=== PATIENT | female | born 1940 | race Caucasian/White ===

== ENCOUNTER 2017-02-23 11:41 | Inpatient (IN) | payer MEDICAID, OTHER ==
[2017-02-23] VITALS (32 sets, daily range): BP systolic 78–153; BP diastolic 44–80; PULSE 54–72; RESP 16–22; TEMP 96.6; Ht 162.6 cm; Wt 69.0 kg
[~2017-02-23] VITALS: Ht 162.6 cm; Wt 69.0 kg
[2017-02-23] MEDS ORDERED: SOD CHLORIDE 0.9% 1,000 ML IV STA ×2 (11:44)
[2017-02-23] MEDS ORDERED: PROPOFOL 100 ML IV STA (11:44)
[2017-02-23] MEDS ORDERED: SODIUM CHLORIDE 0.9% 500 ML BAG IV* STA (11:44)
[2017-02-23] MEDS ORDERED: HEPARIN 1000 UNITS/ML 10 ML INJ IV STA (11:50)
[2017-02-23] MEDS ORDERED: ASPIRIN 300 MG SUPP PR ONE (12:00)
[2017-02-23] MEDS ORDERED: HYDROmorphONE 1 MG/ML SYG IV ONE (12:00)
[2017-02-23] MEDS ORDERED: IODIXANOL LOCM 100 ML BTL ONE ×2 (12:12→21:01)
[2017-02-23] MEDS ORDERED: LIDOCAINE 1% (MDV) 20 ML INJ ONE (12:12)
[2017-02-23 12:13] LABS: ABNORMAL IP MESSAGE 1; BASOPHIL # 0.2 10^3/ul (0.0-0.1); BASOPHILS % 1.2 % (0.0-2.0); EOSINOPHILS # 0.6 10^3/ul (0.0-0.5); EOSINOPHILS % 3.9 % (0.0-7.0); HEMATOCRIT 41.1 % (37.0-47.0); HEMOGLOBIN 13.2 g/dl (12.0-16.0); LYMPHOCYTES # 6.2 10^3/ul (0.8-2.9); LYMPHOCYTES % 39.3 % (15.0-51.0); MEAN CORPUSCULAR HEMOGLOBIN 32.8 pg (29.0-33.0); MEAN CORPUSCULAR HGB CONC 32.1 g/dl (32.0-37.0); MEAN CORPUSCULAR VOLUME 102.2 fl (82.0-101.0); MEAN PLATELET VOLUME 10.6 fl (7.4-10.4); MONOCYTE # 0.7 10^3/ul (0.3-0.9); MONOCYTES % 4.3 % (0.0-11.0); NEUTROPHIL # 7.8 10^3/ul (1.6-7.5); NEUTROPHILS % 49.2 % (39.0-77.0); PLATELET COUNT 177 10^3/UL (140-415); RED BLOOD COUNT 4.02 10^6/ul (4.20-5.40); RED CELL DISTRIBUTION WIDTH 14.2 % (11.5-14.5); WHITE BLOOD COUNT 15.9 10^3/ul (4.8-10.8)
[2017-02-23] MEDS ORDERED: NITROGLYCERIN (IC) 100 MCG/ML INJ ONE (12:13)
[2017-02-23] MEDS ORDERED: FENTAnyl 50 MCG/ML VIAL ONE (12:13)
[2017-02-23] MEDS ORDERED: MIDAZOLAM 1 MG/ML 2 ML INJ ONE (12:13)
--- NOTE | 2017-02-23 12:17 | RADRPT ---
PROCEDURE: XR Chest. CLINICAL INDICATION: Chest pain. Sepsis. STEMI. TECHNIQUE: Single frontal view. COMPARISON: None. FINDINGS: The endotracheal tube tip is at the C7 level, 9.5 cm above the young. This should be advanced appr oximately 7 cm. There is extensive bilateral interstitial pulmonary disease. The heart is enlarged. There is calcification in the aorta consistent with atherosclerosis. The left internal jugular vein tunneled dialysis catheter tip is in the lower superior vena cava. There is no pleural effusion. There is no pneumothorax. IMPRESSION: 1. The endotracheal tube should be advanced approximately 7 cm. 2. Extensive bilateral interstitial pulmonary disease. 3. Cardiomegaly. 4. Atherosclerosis. 5. Left IJ catheter tip in the lower superior vena cava. Call report: A call report of the findings was made to Dr. Evans on 02/23/2017 at 1210 hours. Appa rently at that time, the endotracheal tube had been already advanced 5 cm. RPTAT: QQ .Dipesh Paulino MD, MD Date Time Electronically viewed and signed by .Dipesh Paulino MD, on 02/23/2017 12:17 .R/
[2017-02-23 12:20] LABS: INR 1.02; POSITIVE DIFF @See below; PROTIME 13.4 Sec (12.2-14.2)
[2017-02-23 12:29] LABS: AADO2 Arterial 263.6 mmHg (7.0-24.0); Arterial Base Excess -4.9 mmol/L (-3.0-3); Arterial COHb 0.5 % (0.0-3.0); Arterial Fraction of Oxyhgb 98.9 % (93.0-99.0); Arterial HCO3 21.6 mmol/L (22.0-26.0); Arterial MetHb 0.3 % (0.0-1.5); Arterial Total Hemglobin 13.2 g/dl (12.0-18.0); MODE VENT - AC
[2017-02-23 12:48] LABS: PARTIAL THROMBOPLASTIN TIME 68.6 Sec (25.0-35.0)
--- NOTE | 2017-02-23 12:55 | OPR ---
Date/Time of Note Date/Time of Note DATE: 02/23/17 TIME: 12:46 Operative Report Procedure Date: Feb 23, 2017 Operative\Procedure Findings Procedure performed: 1. Emergent Left heart catheterization, selective right and left coronary angiogram 2. right femoral angiogram 3. moderate sedation for more than 45 minutes. 4. right femoral central venous line placement Chef Instructor: Malcolm Evans MD Indication:: 76 year old female who presented with cardiac arrest. initial ECG showed ST elevation inferiorly c/w inferior STEMI. after d/w ER physician it was felt that pt would benefit from emergent C tera angio possible PCI. pt also with severe hypotension and required to have a central venous access in place for medications/ pressors. Findin. Left main coronary artery: Is normal. 2. Left anterior descending artery: Its a moderate size vessel and goes around the apex. It has 40% stenosis proximally, and 40% stenosis of the mid LAD. 3. Left circumflex artery: Is nondominant. It has 40 % stenosis proximally. 4. Right coronary artery: Is a dominant vessel. It has 30% stenosis at mid level with REED III flow. 5. LV pressure: 53/ 4; Aortic pressure by pull back is 55/33 6. opening BP 53/21 7. final BP 159/53 ( on levophed drip). emergency consent done after d/w with DR Vizcaino and after risks benefits and alternatives discussed with the patient's son in detail. risks including but not limited to risk of infection vascular complications, bleeding complications , NM stroke arrhythmia renal failure at even were discussed with the patient in detail. Patient was brought into the cardiac laborer road and placed in supine position. Right and left groin area was prepped and draped in regular sterile fashion and then he was in anesthetized using 1% lidocaine. Right femoral artery was cannulated and using modified seldinger technique a 6 Slovak sheath was placed in the right femoral artery. JL4 catheter was advanced and engaged into the left main coronary artery and angiographic view was obtained. The JR4 catheter was advanced and engaged right coronary artery angiographic view was obtained. Pigtail was advanced to engage the left ventricle hemodynamics as recorded by pullback aortic pressure was measured. Right femoral vein was cannulated and using modified seldinger technique a central lumen sheath was placed in the right femoral vein. Patient tolerated procedure well with no complication. Right femoral angiogram was performed. Patient is to be transferred to recovery room in stable condition contrast used: 37 cc Conclusions: non obstructive CAD Recommendation: aggressive medical therapy ICU care. MALCOLM EVANS MD Feb 23, 2017 12:55
[2017-02-23] MEDS ORDERED: SOD CHLORIDE 0.9% 1,000 ML IV SCH (12:56)
[2017-02-23 13:12] LABS: ALBUMIN 4.5 g/dl (3.3-4.9); ALBUMIN/GLOBULIN RATIO 1.04; BILIRUBIN,INDIRECT 0.2 mg/dl (0-1.1); BILIRUBIN,TOTAL 0.2 mg/dl (0.2-1.3); MAGNESIUM 1.9 mg/dl (1.7-2.5); PHOSPHORUS 4.4 mg/dl (2.5-4.9); TOTAL PROTEIN 8.8 g/dl (6.1-8.1)
[2017-02-23 13:16] LABS: CALCIUM 8.9 mg/dl (8.4-10.2); CREATININE 2.35 mg/dl (0.44-1.00); POTASSIUM 4.6 mmol/L (3.5-5.1)
--- NOTE | 2017-02-23 13:23 | ERA ---
ER Documentation Chief Complaint Date/Time DATE: 02/23/17 TIME: 13:19 Chief Complaint CARDIAC ARREST, ROSC IN FIELD LINEN MANAGER. HPI Patient is a 76-year-old female with coronary disease, diabetes, and renal failure on dialysis who presents with a cardiac arrest. The patient was brought in by ambulance. The patient was a PEA arrest. The son witnessed her pass out while walking up the steps and she never regained pulses. CPR was started by paramedics. The patient was intubated in the field and given epinephrine 1 mg IV. The patient received return of spontaneous circulation quickly after epi. The patient did have full dialysis today. Please note the history and physical exam is limited secondary to the patient being intubated. ROS All systems reviewed and are negative except as per history of present illness. PMhx/Soc History of Surgery: Yes (GALL BLADDER, HERNIA) Anesthesia Reaction: No Hx Neurological Disorder: No Hx Respiratory Disorders: Yes ("PROBLEMS W/ LUNGS" PER PT'S SON) Hx Cardiac Disorders: Yes ("PROBLEMS W/ HEART" PER PT'S SON) Hx Psychiatric Problems: No Hx Miscellaneous Medical Probl: Yes ("PROBLEMS W/ KIDNEYS" PER PT'S SON) Hx Alcohol Use: No Hx Substance Use: No Hx Tobacco Use: No Smoking Status: Never smoker FmHx Unable to obtain Physical Exam Vitals Vital Signs Date Time Temp Pulse Resp B/P Pulse Ox O2 Delivery O2 Flow Rate FiO2 02/23/17 11:57 96.6 83 20 207/79 100 High Flow 15.0 02/23/17 11:41 99.1 86 0 207/76 100 Physical Exam Const: Critically ill Head: Atraumatic Eyes: Normal Conjunctiva ENT: Normal External Ears, Nose and Mouth. Neck: Full range of motion..~ No meningismus. Resp: Clear to auscultation bilaterally Cardio: Regular rate and rhythm, no murmurs Abd: Soft, non tender, non distended. Normal bowel sounds Skin: No petechiae or rashes Back: No midline or flank tenderness Ext: No cyanosis, or edema Neur: Eyes closed but moving all 4 extremities at this time, no purposeful movement Result Diagram: 02/23/17 1144 02/23/17 1144 Results 24 hrs Laboratory Tests Test 02/23/17 11:44 White Blood Count 15.910^3/ul Red Blood Count 4.0210^6/ul Hemoglobin 13.2g/dl Hematocrit 41.1% Mean Corpuscular Volume 102.2fl Mean Corpuscular Hemoglobin 32.8pg Mean Corpuscular Hemoglobin Concent 32.1g/dl Red Cell Distribution Width 14.2% Platelet Count 40105^3/UL Mean Platelet Volume 10.6fl Neutrophils % 49.2% Lymphocytes % 39.3% Monocytes % 4.3% Eosinophils % 3.9% Basophils % 1.2% Nucleated Red Blood Cells % 0.0/100WBC Neutrophils # 7.810^3/ul Lymphocytes # 6.210^3/ul Monocytes # 0.710^3/ul Eosinophils # 0.610^3/ul Basophils # 0.210^3/ul Nucleated Red Blood Cells # 0.010^3/ul Prothrombin Time 13.4Sec Prothrombin Time Ratio 1.0 INR International Normalized Ratio 1.02 Activated Partial Thromboplast Time 68.6Sec Blood Gas Specimen Source Blood arterial Arterial Blood Date Drawn 02/23/2017 12:21:41 PM Arterial Blood pH (Temp corrected) 7.295 Arterial Blood pCO2 (Temp correct) 45.5mmhg Arterial Blood pO2 (Temp corrected) 403.9mmHG Arterial Blood HCO3 21.6mmol/L Arterial Blood Base Excess -4.9mmol/L Arterial Blood Oxygen Saturation 99.7mmHG Giovanny Test N/A Arterial Blood Gas Puncture Site Femoral Arterial Blood Carboxyhemoglobin 0.5% Arterial Blood Methemoglobin 0.3% Blood Gas A-a O2 Differential 263.6mmHg Oxyhemoglobin Percent 98.9% Total Hemoglobin 13.2g/dl Blood Gas Temperature 37.0C Blood Gas Respiration Rate 16.0 Blood Gas Actual Respiration Rate 18 Blood Gas Modality VENT - AC FiO2 100.0% Blood Gas Tidal Volume 500.0mL Blood Gas Low PEEP Setting 5.0cmH2O Blood Gas Critical Value Read Back DR. EVANS Blood Gas Notified Whom Caden Blood Gas Notified Time 02/23/2017 12:28:54 PM Sodium Level 139mmol/L Potassium Level 4.6mmol/L Chloride Level 96mmol/L Carbon Dioxide Level 18mmol/L Anion Gap 30 Blood Urea Nitrogen 10mg/dl Creatinine 2.35mg/dl Glucose Level 213mg/dl Lactic Acid Level 6.6mmol/L Calcium Level 8.9mg/dl Phosphorus Level 4.4mg/dl Magnesium Level 1.9mg/dl Total Bilirubin 0.2mg/dl Direct Bilirubin 0.00mg/dl Indirect Bilirubin 0.2mg/dl Aspartate Amino Transf (AST/SGOT) 176IU/L Alanine Aminotransferase (ALT/SGPT) 78IU/L Alkaline Phosphatase 203IU/L Troponin I Pending Total Protein 8.8g/dl Albumin 4.5g/dl Globulin 4.30g/dl Albumin/Globulin Ratio 1.04 Current Medications Medications (Trade) Dose Ordered Sig/Rory Route PRN Reason Start Time Stop Time Status Last Admin Dose Admin Aspirin 300 mg 300 mg ONCE ONCE IA 02/23/17 12:00 02/23/17 12:01 DC 02/23/17 11:59 Sodium Chloride 1,000 ml @ 1,000 mls/hr Q1H STAT IV 02/23/17 11:44 02/23/17 12:43 DC Sodium Chloride (NS) 1,000 ml @ 1,000 mls/hr Q1H STAT IV 02/23/17 11:44 02/23/17 12:43 DC Hydromorphone HCl 1 mg 1 mg ONCE ONCE IV 02/23/17 12:00 02/23/17 12:01 DC Propofol (Diprivan) 100 ml @ 0 mls/hr ONCE STAT IV 02/23/17 11:44 02/23/17 11:50 DC Sodium Chloride (NS) 500 ml ONCE STAT IV* 02/23/17 11:44 02/23/17 11:50 DC Heparin Sodium (Porcine) (Heparin (1000 Units/ml)) 5,000 unit ONCE STAT IV 02/23/17 11:50 02/23/17 11:52 DC 02/23/17 12:02 Procedures/MDM EKG read by me: Rate/Rhythm: Regular rate and rhythm at a normal rate Intervals: Normal Impression: Mild ST elevation in lead III with flipped T waves in the lateral leads Review of the EKG done by paramedics show a sinus tachycardia with ST elevations in leads III and aVF with reciprocal depressions in 1 and aVL. Chest X-ray 1V Interpreted by me: Soft Tissue: No acute abnormalities Bones: No acute abnormalities Mediastinum/Cardiac Silhouette/Lungs: Pacemaker in place, ET tube is 6 cm above the clavicles Patient is a 76-year-old female with cardiac risk factors who presents with a cardiac arrest. The patient arrived at 11:40 AM. A code STEMI was called immediately after reviewing the readers' advisory service librarian EKGs. I spoke with Dr. Evans the pest locator building inspection engineer at 11:45 AM. The patient was still awaiting the Telegraph Lineman team at 11:54 AM. The patient was eventually transferred to the cardiac Telegraph Lineman at 12:02 PM. I spoke with Dr. Rangel from the panel team for admission as the patient has never been here before and the primary doctor is unknown. The patient will be admitted to the intensive care unit. Her prognosis is poor. I believe a discussion with the son regarding goals of care would be appropriate. Lactic acid was greater than 4 but at this point I doubt true sepsis. I believe the elevated lactic acid is likely due to the cardiac arrest and poor perfusion. Critical Care: Time: 35 minutes excluding all billable procedures. Treatments/Evaluations: Close monitoring and treatment of unstable vital signs, cardiorespiratory, and neurologic status, while maintaining tight balance of fluid, respiratory, and cardiac interventions. Departure Diagnosis: Primary Impression: Cardiac arrest Additional Impression: STEMI (ST elevation myocardial infarction) Qualified Code: I21.3 - ST elevation myocardial infarction (STEMI), unspecified artery Condition: Critical KELLIE JAMIL MD Feb 23, 2017 13:23
[2017-02-23 13:24] LABS: TROPONIN-I 0.041 ng/ml (0.00-0.12)
--- NOTE | 2017-02-23 13:45 | CONS ---
Date/Time of Note Date/Time of Note DATE: 02/23/17 TIME: 13:44 Assessment/Plan Assessment/Plan Chief Complaint/Hosp Course 1. Cardiopulmonary arrest 2. Shock probably septic [address] elevation on EKG patient is well with no significant flow- limiting obstruction on the coronary angiogram 4. Renal failure on dialysis 5. History of hypertension now hypotensive in shock 6. Diabetes 7. History of dyslipidemia 8. Hypoxemic respiratory failure currently intubated on the vent 9. Diarrhea Recommendations: I will hold off on any anticoagulant or aspirin for now. We will try to wean off the Levophed. IV fluids will be given for now. Renal consultation for hemodialysis. Diabetic management as per internal medicine. Antibiotic management as per internal medicine. We will give a dose of Zosyn now. Continue the vent support for now. We will remove the A-line once patient's blood pressure has remained stable and off of pressors. Admitted to ICU. Will order echocardiogram and repeat chest x-ray It was decided not to proceed with a hypothermia protocol because patient was moving and appeared to follow basic commands. More than 50 minutes of critical care time was reminded to increase patient excluding any procedures Thank you for his referral. I will continue to follow along with you. MALCOLM SANCHEZ MD [facility] Problems: Consultation Date/Type/Reason Admit Date/Time Date of Consultation: Feb 23, 2017 Type of Consultation: INTERVENTIONAL CARDIOLOGY Reason for Consultation CARDIOPULMONARY ARREST. STEMI Referring Provider: KELLIE JAMIL MD Hx of Present Illness Thank you for this referral. This is an unfortunate 76-year-old female with history of end-stage renal disease on hemodialysis over the past 10 years, hypertension diabetes dyslipidemia who was admitted through emergency room with cardiopulmonary arrest. History was obtained from discussion with multiple physicians and a stabbing: Dr. Jamil and Dr Andrade. Also discussed with multiple family want the bedside. Discussed with the sons. According to the family patient has been fatigued and tired for a long time. She has had exertional dyspnea and shortness of breath. No chest pain. Patient had hemodialysis today and earlier. She was walking upstairs when she felt weak and suddenly passed out and fell. Paramedics were called. Patient was found to be in PEA initially. Patient has been intubated. Initial EKG done by benefits director has showed normal sinus rhythm with ST elevation inferiorly and reciprocal changes in the lateral leads consistent with possible inferior ST elevation myocardial infarction. Code STEMI was activated and I was consulted emergently saw the patient. Patient was taken for emergent cardiac catheterization which showed no flow-limiting obstructions. Her LVEDP was very low however. She was noted to be severely hypotensive with blood pressure of 55 /33 initially. I have placed her on Levophed drip and fluid resuscitation was given as well. Blood pressure has improved at the moment. Central venous line was also placed in for IV access and fluid management. On my initial visit to the patient patient was moving around. She actually did open her eyes as well. Because of her bodies were decided the patient should not be on hypothermia protocol. Patient is being transferred to ICU. Patient was also noted to have massive diarrhea in the Air Conditioning Insulation Installer. Family denies any recent diarrhea. Allergies no reported drug allergies I could obtain. Medication was reviewed as per medical reconciliation for personally reviewed. Include Renagel Lipitor lisinopril isosorbide insulin Family history no reported early coronary artery disease per family's report. Social history: Patient does not smoke or drink. Is being followed about all review. Does not know her doctor's names. According to the family all the review of system are negative except for above. Social History Smoking Status: Never smoker Exam/Review of Systems Vital Signs Vitals Vital Signs Date Time Temp Pulse Resp B/P Pulse Ox O2 Delivery O2 Flow Rate FiO2 02/23/17 12:33 72 18 100 100 02/23/17 11:57 96.6 207/79 High Flow 15.0 Exam General obese female started with intubation on the vent. HEENT: NC/AT. pupils are equal. round. NECK: NO JVD. no stridor. CV: RRR. systolic murmur; no gallop or rubs. PULM: no wheezing or rhonchi anteriorly. GI: SOFT, NT, ND, no rebound or guarding Extremity: trace B/L LE edema. no clubbing. neuro: sedated. Psych: gets intermittently agitated. rectal: deferred : normal ECG initial NSR ST elevation inferior lead. Results Result Diagram: 02/23/17 1144 02/23/17 1144 Results 24 hrs Laboratory Tests Test 02/23/17 11:44 White Blood Count 15.9 H Red Blood Count 4.02 L Hemoglobin 13.2 Hematocrit 41.1 Mean Corpuscular Volume 102.2 H Mean Corpuscular Hemoglobin 32.8 Mean Corpuscular Hemoglobin Concent 32.1 Red Cell Distribution Width 14.2 Platelet Count 177 Mean Platelet Volume 10.6 H Neutrophils % 49.2 Lymphocytes % 39.3 Monocytes % 4.3 Eosinophils % 3.9 Basophils % 1.2 Nucleated Red Blood Cells % 0.0 Neutrophils # 7.8 H Lymphocytes # 6.2 H Monocytes # 0.7 Eosinophils # 0.6 H Basophils # 0.2 H Nucleated Red Blood Cells # 0.0 Prothrombin Time 13.4 Prothrombin Time Ratio 1.0 INR International Normalized Ratio 1.02 Activated Partial Thromboplast Time 68.6 H Blood Gas Specimen Source Blood arterial Arterial Blood Date Drawn 02/23/2017 12:21:41 PM Arterial Blood pH (Temp corrected) 7.295 *L Arterial Blood pCO2 (Temp correct) 45.5 H Arterial Blood pO2 (Temp corrected) 403.9 H Arterial Blood HCO3 21.6 L Arterial Blood Base Excess -4.9 L Arterial Blood Oxygen Saturation 99.7 Giovanny Test N/A Arterial Blood Gas Puncture Site Femoral Arterial Blood Carboxyhemoglobin 0.5 Arterial Blood Methemoglobin 0.3 Blood Gas A-a O2 Differential 263.6 H Oxyhemoglobin Percent 98.9 Total Hemoglobin 13.2 Blood Gas Temperature 37.0 Blood Gas Respiration Rate 16.0 Blood Gas Actual Respiration Rate 18 Blood Gas Modality VENT - AC FiO2 100.0 Blood Gas Tidal Volume 500.0 Blood Gas Low PEEP Setting 5.0 Blood Gas Critical Value Read Back DR. SANCHEZ Blood Gas Notified Whom Caden Blood Gas Notified Time 02/23/2017 12:28:54 PM Sodium Level 139 Potassium Level 4.6 Chloride Level 96 L Carbon Dioxide Level 18 L Anion Gap 30 H Blood Urea Nitrogen 10 Creatinine 2.35 H Glucose Level 213 Lactic Acid Level 6.6 *H Calcium Level 8.9 Phosphorus Level 4.4 Magnesium Level 1.9 Total Bilirubin 0.2 Direct Bilirubin 0.00 Indirect Bilirubin 0.2 Aspartate Amino Transf (AST/SGOT) 176 H Alanine Aminotransferase (ALT/SGPT) 78 H Alkaline Phosphatase 203 H Troponin I 0.041 Total Protein 8.8 H Albumin 4.5 Globulin 4.30 H Albumin/Globulin Ratio 1.04 Medications Medications Current Medications Sodium Chloride (NS) 1,000 ml @ 125 mls/hr Q8H IV ; Start 02/23/17 at 12:56; Stop 02/23/17 at 20:55 MALCOLM SANCHEZ MD Feb 23, 2017 13:45
--- NOTE | 2017-02-23 14:53 | CONS ---
Date/Time of Note Date/Time of Note DATE: 02/23/17 TIME: 14:48 Assessment/Plan Assessment/Plan Additional Assessment/Plan Chest x-ray was reviewed from today which is showing endotracheal tube at an adequate level. There is pulmonary edema and cardiomegaly present. Next Ventilator setting; AC of 16, tidal volume 500, PEEP of 5, 100% FiO2. Assessment and recommendations; 1. Patient admitted with cardiac arrest etiology is unclear. Possibly coronary artery spasm. 2. Chronic renal failure, on hemodialysis. 3. Mild pulmonary edema. 4. History of diabetes and hypertension. Continue current supportive care. Give the patient sedation vacation in 24 hours. Ventilator settings have been adjusted. Start cefepime 1 g every 12 hours. Obtain follow-up chest x-ray tomorrow morning. Patient may not require further antibiotic dosing if the x-ray shows significant improvement. Prognosis is guarded and will depend upon adequate mental status recovery. Since the patient has had neurological recovery she is not a candidate for hypothermia protocol. Consultation Date/Type/Reason Admit Date/Time Date of Consultation: Feb 23, 2017 Type of Consultation: Pulmonary/critical care Reason for Consultation Pulmonary consultation requested for evaluation of respiratory failure. Patient admitted with cardiac arrest. History of presenting illness; patient is a 76-year-old lady who was admitted via ER and she was brought in with cardiac arrest. CPR was done with revival of vital signs. Patient also was somewhat arousable at the time. She was immediately taken to the Bus Washer where she underwent coronary angiography which was essentially unremarkable. The patient has been intubated and transferred to ICU. By the time I saw the patient the patient is orally intubated, sedated with propofol drip and did not appear to be in any distress. History was obtained from medical records. Past medical history; 1. Patient with a history of end-stage renal disease, on hemodialysis. 2. History of hypertension. 3. History of diabetes. 4. Based upon examination there is a history of laparotomy. Medications; reviewed. Allergies; none. Social history; patient never smoked. Family history; patient apparently has a supportive family. Occupation history not available. Review of systems; unable to be obtained General examination; elderly woman, orally intubated, sedated, currently in no distress. Social History Smoking Status: Never smoker Exam/Review of Systems Vital Signs Vitals Vital Signs Date Time Temp Pulse Resp B/P Pulse Ox O2 Delivery O2 Flow Rate FiO2 02/23/17 12:33 72 18 100 100 02/23/17 11:57 96.6 207/79 High Flow 15.0 Exam HEENT exam; supple neck, positive JVD. No lymphadenopathy. Midline trachea. No thyromegaly. Patient has fair dentition. Has bilateral intraocular lens implants. Chest exam; diminished but clear breath sound. S1-S2 audible, no murmurs. Regular rhythm. Abdomen exam; soft, there is a well-healed laparotomy scar present. Bowel sounds are sluggish. No organomegaly felt. Extremity exam; no peripheral edema. Pulses 1+ bilaterally. FORESTRY CONSERVATION WORKER exam; patient is sedated. Results Result Diagram: 02/23/17 1144 02/23/17 1144 Results 24 hrs Laboratory Tests Test 02/23/17 11:44 White Blood Count 15.9 H Red Blood Count 4.02 L Hemoglobin 13.2 Hematocrit 41.1 Mean Corpuscular Volume 102.2 H Mean Corpuscular Hemoglobin 32.8 Mean Corpuscular Hemoglobin Concent 32.1 Red Cell Distribution Width 14.2 Platelet Count 177 Mean Platelet Volume 10.6 H Neutrophils % 49.2 Lymphocytes % 39.3 Monocytes % 4.3 Eosinophils % 3.9 Basophils % 1.2 Nucleated Red Blood Cells % 0.0 Neutrophils # 7.8 H Lymphocytes # 6.2 H Monocytes # 0.7 Eosinophils # 0.6 H Basophils # 0.2 H Nucleated Red Blood Cells # 0.0 Prothrombin Time 13.4 Prothrombin Time Ratio 1.0 INR International Normalized Ratio 1.02 Activated Partial Thromboplast Time 68.6 H Blood Gas Specimen Source Blood arterial Arterial Blood Date Drawn 02/23/2017 12:21:41 PM Arterial Blood pH (Temp corrected) 7.295 *L Arterial Blood pCO2 (Temp correct) 45.5 H Arterial Blood pO2 (Temp corrected) 403.9 H Arterial Blood HCO3 21.6 L Arterial Blood Base Excess -4.9 L Arterial Blood Oxygen Saturation 99.7 Giovanny Test N/A Arterial Blood Gas Puncture Site Femoral Arterial Blood Carboxyhemoglobin 0.5 Arterial Blood Methemoglobin 0.3 Blood Gas A-a O2 Differential 263.6 H Oxyhemoglobin Percent 98.9 Total Hemoglobin 13.2 Blood Gas Temperature 37.0 Blood Gas Respiration Rate 16.0 Blood Gas Actual Respiration Rate 18 Blood Gas Modality VENT - AC FiO2 100.0 Blood Gas Tidal Volume 500.0 Blood Gas Low PEEP Setting 5.0 Blood Gas Critical Value Read Back DR. SANCHEZ Blood Gas Notified Whom Caden Blood Gas Notified Time 02/23/2017 12:28:54 PM Sodium Level 139 Potassium Level 4.6 Chloride Level 96 L Carbon Dioxide Level 18 L Anion Gap 30 H Blood Urea Nitrogen 10 Creatinine 2.35 H Glucose Level 213 Lactic Acid Level 6.6 *H Calcium Level 8.9 Phosphorus Level 4.4 Magnesium Level 1.9 Total Bilirubin 0.2 Direct Bilirubin 0.00 Indirect Bilirubin 0.2 Aspartate Amino Transf (AST/SGOT) 176 H Alanine Aminotransferase (ALT/SGPT) 78 H Alkaline Phosphatase 203 H Troponin I 0.041 Total Protein 8.8 H Albumin 4.5 Globulin 4.30 H Albumin/Globulin Ratio 1.04 Medications Medications Current Medications Sodium Chloride (NS) 1,000 ml @ 125 mls/hr Q8H IV ; Start 02/23/17 at 12:56; Stop 02/23/17 at 20:55 ELSA SCHMITZ Feb 23, 2017 14:53
--- NOTE | 2017-02-23 15:15 | RADRPT ---
Echocardiogram Report Patient Name: ROSMERY HE Gender: Female Date: 1940 Study Date: 23-Feb-2017 Injection Molder: [facility] Location: 110 Ref. Physician: MALCOLM EVANS Quality: Adequate Procedures: Transthoracic echocardiogram with complete 2D, M-Mode, and doppler examination. Indications: STEMI, CPA. 2D/M Mode Doppler Measurement Value Normal Ranges Measurement Value Normal Ranges LVIDd 2D 3.5 3.5 - 5.6 cm AV Peak Nick 1.8 m/sec LVIDs 2D 3.0 2.1 - 4.1 cm AV Peak PG 13.0 mmHg LVPWd 2D 1.3 0.6 - 1.1 cm AI Peak PG 50.0 mmHg IVSd 2D 1.3 0.6 - 1.1 cm AI Peak Nick 3.5 m/sec AoR Diam 2D 2.0 2.0 - 3.7 cm AI PHT 611.0 msec LA Dimen 2D 3.0 2.3 - 4.0 cm LVOT Peak Nick 1.5 m/sec LVOT Peak PG 9.0 mmHg MV E Peak Nick 0.6 m/sec MV A Peak Nick 1.4 m/sec MV E/A 0.5 MV Decel Time 285 msec MV E/A 0.5 TR Peak Nick 3.6 m/sec TR Peak PG 52.0 mmHg RVSP 62.0 mmHg Findings Left Ventricle: Hyperdynamic left ventricular systolic function. Normal left ventricular cavity size. Mild concentric left ventricular hypertrophy. Ejection fraction is visually estimated at 70 %. Tissue Doppler/Mitral Doppler indices are consistent with impaired relaxation (Stage I diastolic dysfunction). Right Ventricle: Normal right ventricular systolic function. Mild enlargement of right ventricle. Left Atrium: The left atrium is normal in size. Right Atrium: The right atrium is normal in size. Mitral Valve: Mild mitral leaflet calcification. Mild mitral annular calcification. Trace mitral regurgitation. Aortic Valve: Aortic sclerosis without stenosis. Trileaflet aortic valve. Moderate to severe aortic valve regurgitation. The regurgitation jet is eccentrically directed. Tricuspid Valve: Normal appearance of the tricuspid valve. Estimated peak PA systolic pressure 62 mmHg. There is mild tricuspid regurgitation. Pulmonic Valve: Pulmonic valve not well visualized. There is mild pulmonic regurgitation. Pericardium: Normal pericardium with no significant pericardial effusion. Aorta: Normal aortic root. IVC: Normal IVC with respiratory collapse, however patient on ventilator. Conclusions 1.Hyperdynamic left ventricular systolic function. Normal left ventricular cavity size. Mild concentric left ventricular hypertrophy. Ejection fraction is visually estimated at 70 %. Tissue Doppler/Mitral Doppler indices are consistent with impaired relaxation (Stage I diastolic dysfunction). 2.Normal right ventricular systolic function. Mild enlargement of right ventricle. 3.Mild mitral leaflet calcification. Mild mitral annular calcification. Trace mitral regurgitation. 4.Aortic sclerosis without stenosis. Trileaflet aortic valve. Moderate to severe aortic valve regurgitation. The regurgitation jet is eccentrically directed. 5.Normal appearance of the tricuspid valve. Estimated peak PA systolic pressure 62 mmHg. There is mild tricuspid regurgitation. 6.Normal IVC with respiratory collapse, however patient on ventilator. Electronically Signed By: Malcolm Evans 23-Feb-2017 15:14:14 -0700 Patient Name: ROSMERY HE Study Date: 23-Feb-2017 [id number]
[2017-02-23] MEDS ORDERED: ONDANSETRON 4 MG INJ IV PRN (15:30)
[2017-02-23] MEDS ORDERED: ALBUTEROL/IPRATROPIUM (NEB) 3 ML AMP NEB PRN (15:30)
--- NOTE | 2017-02-23 15:54 | RADRPT ---
PROCEDURE: XR Chest. CLINICAL INDICATION: s/p intubation TECHNIQUE: Single frontal chest x-ray. COMPARISON: 11:48 a.m. FINDINGS: Endotracheal tube is in place with tip 1 cm above the young. Left-sided tunneled dialysis catheter is in place with tip overlying superior vena cava. Diffuse bilateral interstitial infiltrates are unchanged. There are no pleural effusions. . Calcific atherosclerosis of the aorta is present.. C ardiomegaly is unchanged.. The osseous structures are intact. IMPRESSION: Endotracheal tube in place with tip advanced 1 cm above the young. Left sided tunneled dialysis catheter in place. Cardiomegaly with diffuse bilateral interstitial infiltrates is stable.. RPTAT: GG .Aden Barriga MD, MD Date Time Electronically viewed and signed by .Aden Barriga MD, on 02/23/2017 15:54 .L/
[2017-02-23] MEDS ORDERED: HYPOGLYCEMIA PROTOCOL when Glucose is <70 mg/dL or symptomatic <90 mg/dL. XX ONE (16:00)
--- NOTE | 2017-02-23 16:13 | HP ---
Date/Time of Note Date/Time of Note DATE: 02/23/17 TIME: 16:03 Assessment/Plan VTE Prophylaxis VTE Prophylaxis Intervention: SCD's Lines/Catheters Central line still needed: Yes Urinary Cath still in place: Yes Reason Cath still needed: terminal illness/intractable pain Assessment/Plan Chief Complaint/Hosp Course Patient is a 76-year-old female with past medical history of end-stage renal disease who presented with cardiopulmonary arrest following dialysis and feeling weak at home. Assessment and problem list Cardiopulmonary arrest, PEA Acute respiratory failure, secondary to PEA arrest Interstitial opacity ST elevation on EKG Septic shock, pneumonia with leukocytosis and respiratory rate End-stage renal disease, on hemodialysis Hypertensive emergency, transient secondary to pressure on a line Altered mental status Lactic acidosis Elevated AST and ALT, likely secondary to hypoperfusion Hudson anion gap metabolic acidosis, secondary to lactic acid very likely Hypertension, chronic Diabetes Dyslipidemia Mild pulmonary edema Plan -in ICU, cardiology performed emergent cardiac cath, no signs of ischemic disease, patient intubated and sedated at this time. No obvious source of arrest. At this time possible sepsis and hypoxia most likely. -No thrombosis per cath, no tension pneumothorax per chest x-ray, no tmp an odd per chest x-ray and echo, no electrolyte derangement per renal panel, ABG only mildly acidotic, which leads to hypovolemia and hypoxia with sepsis as the most likely culprit -Dr. Borden, nephrology consulted for ESRD, outside business process architect unknown at this time due to sedated nature -Dr. Evans, cardiology and Dr. Coburn, pulmonology on -Panculture with antibiotics, cefepime per voice network engineer -Steroids for possible pulmonary issues leading to cardiac arrest -Repeat lactic acid, on pressors, on fluids -Sliding scale insulin with long-acting insulin -Closely monitor Jus Andrade DO Problems: HPI/ROS Admit Date/Time Admit Date/Time Hx of Present Illness Patient is a 76-year-old female with a past medical history significant for end-stage renal disease on hemodialysis for over 10 years, hypertension, diabetes, dyslipidemia was who was admitted for cardiopulmonary arrest. Patient also had ST elevation and a code STEMI was called, cardiology took patient into the cardiac cath and did not find any acute ischemic disease. Patient also received echocardiogram and chest x-ray which did not show any tamponade or any tension pneumothorax. Patient received dialysis earlier today and felt weak and collapsed resulting in PEA arrest however after fluid resuscitation patient neurologically improved and hypothermic protocol was not initiated. It should also be of note that during the cardiac cath server programmer noted left ventricular end-diastolic pressure was very low with severe aortic regurg. The rest of the HPI is difficult to obtain as patient is intubated and sedated and there are no family members at bedside PMH: End-stage renal disease, hypertension, diabetes, dyslipidemia, PSH: Unknown, however patient is noted to have a vertical anterior abdominal scar Social: Unknown at this time Meds: Reportedly Lipitor, lisinopril, isosorbide dinitrate, insulin, PMH/Family/Social Social History Smoking Status: Never smoker Exam/Review of Systems Vital Signs Vitals Vital Signs Date Time Temp Pulse Resp B/P Pulse Ox O2 Delivery O2 Flow Rate FiO2 02/23/17 12:33 72 18 100 100 02/23/17 11:57 96.6 207/79 High Flow 15.0 Exam Exam Physical exam General: Patient is laying in bed intubated, on propofol Mentation: Patient is sedated Head: Normocephalic atraumatic Eyes: sluggish pupils Neck: Supple, nontender, midline Respiratory: coarse to auscultation bilaterally Cardiovascular: tachycardic, Gastrointestinal: non-tender to palpation, bowel sounds heard. ant abdominal hernia palpated. Neurological: Moves all extremities spontaneously Skin: No new skin lesions Labs Result Diagram: 02/23/17 1144 02/23/17 1144 Medications Medications Current Medications Sodium Chloride (NS) 1,000 ml @ 125 mls/hr Q8H IV ; Start 02/23/17 at 12:56; Stop 02/23/17 at 20:55 JUS ANDRADE Feb 23, 2017 16:13
[2017-02-23 16:22] LABS: BASOPHIL # 0.1 10^3/ul (0.0-0.1); BASOPHILS % 0.7 % (0.0-2.0); EOSINOPHILS # 0.2 10^3/ul (0.0-0.5); EOSINOPHILS % 1.2 % (0.0-7.0); HEMATOCRIT 32.7 % (37.0-47.0); HEMOGLOBIN 10.6 g/dl (12.0-16.0); LYMPHOCYTES # 0.8 10^3/ul (0.8-2.9); LYMPHOCYTES % 5.8 % (15.0-51.0); MEAN CORPUSCULAR HEMOGLOBIN 32.9 pg (29.0-33.0); MEAN CORPUSCULAR HGB CONC 32.4 g/dl (32.0-37.0); MEAN CORPUSCULAR VOLUME 101.6 fl (82.0-101.0); MEAN PLATELET VOLUME 10.4 fl (7.4-10.4); MONOCYTE # 0.8 10^3/ul (0.3-0.9); MONOCYTES % 5.7 % (0.0-11.0); NEUTROPHIL # 11.9 10^3/ul (1.6-7.5); NEUTROPHILS % 85.9 % (39.0-77.0); PLATELET COUNT 144 10^3/UL (140-415); RED BLOOD COUNT 3.22 10^6/ul (4.20-5.40); RED CELL DISTRIBUTION WIDTH 14.3 % (11.5-14.5); WHITE BLOOD COUNT 13.8 10^3/ul (4.8-10.8)
[2017-02-23] MEDS ORDERED: GLUCOSE GEL 15 GRAM TUBE BUCCAL PRN (16:30)
[2017-02-23] MEDS ORDERED: GLUCAGON 1 MG INJ IM PRN (16:30)
[2017-02-23] MEDS ORDERED: DEXTROSE 50% 50 ML SYRINGE IV PRN ×2 (16:30)
[2017-02-23] MEDS ORDERED: GLUCOSE GEL 15 GRAM TUBE PO PRN ×2 (16:30)
[2017-02-23 16:38] LABS: CREATININE 2.46 mg/dl (0.44-1.00); MAGNESIUM 1.8 mg/dl (1.7-2.5); POTASSIUM 4.5 mmol/L (3.5-5.1)
--- NOTE | 2017-02-23 17:56 | CONS ---
Date/Time of Note Date/Time of Note DATE: 02/23/17 TIME: 17:54 Assessment/Plan Assessment/Plan Chief Complaint/Hosp Course A/P S/P ARREST DM CAD ESRD S/P HD PLAN PER ORDER Problems: Consultation Date/Type/Reason Admit Date/Time Feb 23, 2017 at 14:20 Initial Consult Date 02/23/17 Type of Consultation: renal Referring Provider: KELLIE JAMIL MD 24 HR Interval Summary Constitutional: other (on vent) Exam/Review of Systems Vital Signs Vitals Vital Signs Date Time Temp Pulse Resp B/P Pulse Ox O2 Delivery O2 Flow Rate FiO2 02/23/17 17:33 65 16 100 40 02/23/17 17:00 107/56 Mechanical Ventilator 02/23/17 15:00 98.9 02/23/17 11:57 15.0 Exam Neck: supple Respiratory: clear to auscultation Cardiovascular: regular rate and rhythm Gastrointestinal: soft Musculoskeletal: nl extremities to inspection Extremities: normal pulses Results Result Diagram: 02/23/17 1530 02/23/17 1530 Results 24 hrs Laboratory Tests Test 02/23/17 11:44 02/23/17 15:30 02/23/17 17:06 White Blood Count 15.9 H 13.8 H Red Blood Count 4.02 L 3.22 L Hemoglobin 13.2 10.6 L Hematocrit 41.1 32.7 #L Mean Corpuscular Volume 102.2 H 101.6 H Mean Corpuscular Hemoglobin 32.8 32.9 Mean Corpuscular Hemoglobin Concent 32.1 32.4 Red Cell Distribution Width 14.2 14.3 Platelet Count 177 144 Mean Platelet Volume 10.6 H 10.4 Neutrophils % 49.2 85.9 H Lymphocytes % 39.3 5.8 L Monocytes % 4.3 5.7 Eosinophils % 3.9 1.2 Basophils % 1.2 0.7 Nucleated Red Blood Cells % 0.0 0.0 Neutrophils # 7.8 H 11.9 H Lymphocytes # 6.2 H 0.8 Monocytes # 0.7 0.8 Eosinophils # 0.6 H 0.2 Basophils # 0.2 H 0.1 Nucleated Red Blood Cells # 0.0 0.0 Prothrombin Time 13.4 Prothrombin Time Ratio 1.0 INR International Normalized Ratio 1.02 Activated Partial Thromboplast Time 68.6 H 112.5 *H Blood Gas Specimen Source Blood arterial Arterial Blood Date Drawn 02/23/2017 12:21:41 PM Arterial Blood pH (Temp corrected) 7.295 *L Arterial Blood pCO2 (Temp correct) 45.5 H Arterial Blood pO2 (Temp corrected) 403.9 H Arterial Blood HCO3 21.6 L Arterial Blood Base Excess -4.9 L Arterial Blood Oxygen Saturation 99.7 Giovanny Test N/A Arterial Blood Gas Puncture Site Femoral Arterial Blood Carboxyhemoglobin 0.5 Arterial Blood Methemoglobin 0.3 Blood Gas A-a O2 Differential 263.6 H Oxyhemoglobin Percent 98.9 Total Hemoglobin 13.2 Blood Gas Temperature 37.0 Blood Gas Respiration Rate 16.0 Blood Gas Actual Respiration Rate 18 Blood Gas Modality VENT - AC FiO2 100.0 Blood Gas Tidal Volume 500.0 Blood Gas Low PEEP Setting 5.0 Blood Gas Critical Value Read Back DR. SANCHEZ Blood Gas Notified Whom Caden Blood Gas Notified Time 02/23/2017 12:28:54 PM Sodium Level 139 137 Potassium Level 4.6 4.5 Chloride Level 96 L 96 L Carbon Dioxide Level 18 L 28 # Anion Gap 30 H 18 #H Blood Urea Nitrogen 10 14 Creatinine 2.35 H 2.46 H Glucose Level 213 137 # Lactic Acid Level 6.6 *H 1.3 1.6 Calcium Level 8.9 8.0 L Phosphorus Level 4.4 Magnesium Level 1.9 1.8 Total Bilirubin 0.2 Direct Bilirubin 0.00 Indirect Bilirubin 0.2 Aspartate Amino Transf (AST/SGOT) 176 H Alanine Aminotransferase (ALT/SGPT) 78 H Alkaline Phosphatase 203 H Troponin I 0.041 Total Protein 8.8 H Albumin 4.5 Globulin 4.30 H Albumin/Globulin Ratio 1.04 Medications Medications Current Medications Sodium Chloride 1,000 ml @ 125 mls/hr Q8H IV Last administered on 02/23/17t 16: 00; Admin Dose 125 MLS/HR; Start 02/23/17 at 12:56; Stop 02/23/17 at 20:55 Cefepime HCl (Maxipime 1gm/50 ml (Pmx)) 50 ml @ 100 mls/hr Q24H IVPB ; Start at 16:36 Ondansetron HCl (Zofran Inj) 4 mg Q6H PRN IV NAUSEA AND/OR VOMITING; Start 02/23 at 15:30 Methylprednisolone Sodium Succinate (Solu-Medrol) 60 mg Q6 IV ; Start 02/23/17 at 18:00 Pantoprazole (Protonix Iv) 40 mg DAILY@06 IV ; Start 02/24/17 at 06:00 Diagnostic Test (Pha) (Accu-Chek) 1 ea 02 XX ; Start 02/24/17 at 02:00 Insulin Aspart (Novolog Insulin Pen) NOVOLOG *MODERATE* ALGORITHM Q6 SC ; Start 02/23/17 at 18:00 Miscellaneous Information 1 ea NOTE XX ; Start 02/23/17 at 16:30 Glucose (Glutose) 15 gm Q15M PRN PO DECREASED GLUCOSE; Start 02/23/17 at 16:30 Glucose (Glutose) 22.5 gm Q15M PRN PO DECREASED GLUCOSE; Start 02/23/17 at 16:30 Dextrose (D50w Syringe) 25 ml Q15M PRN IV DECREASED GLUCOSE; Start 02/23/17 at 16:30 Dextrose (D50w Syringe) 50 ml Q15M PRN IV DECREASED GLUCOSE; Start 02/23/17 at 16:30 Glucagon (Glucagen) 1 mg Q15M PRN IM DECREASED GLUCOSE; Start 02/23/17 at 16:30 Glucose (Glutose) 15 gm Q15M PRN BUCCAL DECREASED GLUCOSE; Start 02/23/17 at 16: 30 FERNY GARCIA MD Feb 23, 2017 17:56
[2017-02-23] MEDS: INSULIN ASPART [NOVOLOG] 3 ML PEN SC SCH (18:00)
[2017-02-23] MEDS: CEFEPIME 1GM/50 ML (PMX) 50 ML IVPB SCH (18:02)
[2017-02-23] MEDS: METHYLPREDNISOLONE 125 MG INJ IV SCH (18:02)
[2017-02-23] MEDS: PROPOFOL 100 ML IV SCH ×2 (18:25→22:54)
[2017-02-23] MEDS ORDERED: NORepinephrine 8MG/250 ML (PMX 250 ML IV SCH (18:30)
[2017-02-23] MEDS ORDERED: ALBUTEROL/IPRATROPIUM (NEB) 3 ML AMP NEB SCH (20:00)
[2017-02-23] MEDS: ALBUTEROL 18 GM INHALER INH SCH (20:57)
[2017-02-23] MEDS: IPRATROPIUM (HFA) 12.9 GM INHALER INH SCH (20:57)
[2017-02-23] MEDS ORDERED: IODIXANOL LOCM 50 ML BTL ONE (21:01)
[2017-02-23] MEDS ORDERED: SOD CHLORIDE 0.9% 100 ML ONE (21:01)
--- NOTE | 2017-02-23 23:53 | RADRPT ---
PROCEDURE: CTA chest with contrast utilizing the pulmonary embolus protocol. CLINICAL INDICATION: Chest pain and sepsis. TECHNIQUE: CT angiography of the chest was performed after the uneventful intravenous administratio n of 110 cc of Visipaque 320. Coronal and sagittal reformations were performed. 3-D/multiplanar ref ormations were performed by the technologist and at an independent workstation. The total exam CTDI equals 3.99, 79.77, 24.29 and the total exam DLP equals 1042.65 mGy-cm. One or more of the following dose reduction techniques were used: - Automated exposure control. - Adjustment of the mA and/or kV according to patient size. - Use of iterative reconstruction technique. COMPARISON: Chest x-rays dated 02/23/2017. FINDINGS: Pulmonary vasculature: There are no filling defects through the level of the subsegmental pulmonary arteries. The main pulmonary artery is normal in caliber and there is no evidence of right heart st rain. Lungs, pleura, airways, and thoracic inlet: There are extensive reticular opacities and ground-glas s opacity with an apical basilar gradient. There is subpleural microcystic honeycombing, also most pronounced at the lung bases. There is diffuse traction bronchiectasis without focal consolidation, effusion, or pneumothorax. There are no concerning pulmonary nodules or masses. The tracheobronchia l tree is patent and normal in course and caliber. There is a low-lying endotracheal tube with its t ip 7 mm above the young. Cardiovascular system, mediastinum, and lymphatics: There is four-chamber cardiac enlargement witho ut pericardial thickening or effusion. There are multivessel coronary artery calcifications. There a re atherosclerotic changes of the aorta. There is no aortic aneurysm or dissection. There is no axi llary adenopathy. There is bulky prevascular, paratracheal, and subcarinal adenopathy. There is al so bulky right hilar adenopathy. Visualized upper abdomen: There is moderate left hydroureteronephrosis with a dilated ureter seen e xtending to the inferior margin of the field of view. There are numerous cysts within both kidneys, consistent with cystic disease of uremia. There is a 5.1 cm left adrenal myelolipoma. Musculoskeletal system: There is moderate multilevel degenerative enthesopathy. There are no concer jessica osseous lesions. IMPRESSION: 1. Pulmonary findings as described, most consistent with usual interstitial pneumonia (UIP). No def inite acute superimposed process. 2. Low-lying ETT with its tip approximately 7 mm above the young. 3. Four-chamber cardiac enlargement. 4. Bulky mediastinal and right hilar adenopathy, likely reactive in nature. 5. Moderate left hydroureteronephrosis extending inferiorly out of the field of view without a defi nite source of obstruction identified. CT scan of the abdomen and pelvis can be performed for furth er evaluation. 6. Numerous cysts throughout both kidneys, consistent with cystic disease of uremia. 7. Benign 5.1 cm left adrenal myelolipoma. These findings discussed with the patient's nurse Gracie Cuevas at 2346 hours on 02/23/2017. RPTAT: HLBP .Bassam Singh MD, Date Time Electronically viewed and signed by .Bassam Singh MD, on 02/23/2017 23:52 .P/
[2017-02-24] VITALS (99 sets, daily range): BP systolic 90–162; BP diastolic 32–113; PULSE 54–83; RESP 14–35
[2017-02-24] MEDS: METHYLPREDNISOLONE 125 MG INJ IV SCH ×4 (00:43→18:49)
--- NOTE | 2017-02-24 01:23 | RADRPT ---
PROCEDURE: XR Chest. CLINICAL INDICATION: Endotracheal intubation. TECHNIQUE: Single frontal view of the chest. COMPARISON: CT examination of the chest dated 02/23/2017, about 3 half hours ago. Plain film chest dated 02/23/2017. FINDINGS: Endotracheal intubation is seen with tip about 7 mm above the young. Left central venous double-kym men dialysis catheter in place with tip in the superior vena cava. Cardiomegaly with atherosclerotic calcifications in the thoracic aorta. Bilateral changes of usual i nterstitial pneumonia/UIP. Likely superimposed mild to moderate failure. Lung densities are substant ially increased over interval since plain film chest dated 02/23/2017. No pleural effusion. No pneum othorax. The osseous structures and soft tissues are unremarkable. IMPRESSION: 1. Bilateral changes of usual interstitial pneumonia/UIP. 2. Likely superimposed mild to moderate failure, increased over interval since plain film examinati on dated 02/23/2017. 3. Endotracheal intubation is seen with tip about 7 mm above the young. RPTAT: UU Physician Nestor Date Time Electronically viewed and signed by Physician Nestor on 02/24/2017 01:23 RS/
[2017-02-24] MEDS: ALBUTEROL 18 GM INHALER INH SCH ×4 (01:47→21:16)
[2017-02-24] MEDS: IPRATROPIUM (HFA) 12.9 GM INHALER INH SCH ×4 (01:47→21:16)
[2017-02-24] MEDS: ACCU-CHEK XX SCH (02:00)
[2017-02-24] MEDS: PANTOPRAZOLE 40 MG INJ IV SCH (05:43)
[2017-02-24] MEDS: PROPOFOL 100 ML IV SCH ×4 (05:58→19:53)
[2017-02-24] MEDS: INSULIN ASPART [NOVOLOG] 3 ML PEN SC SCH ×4 (06:00→18:00)
[2017-02-24 07:21] LABS: BASOPHILS % 0.5 % (0.0-2.0); HEMATOCRIT 30.5 % (37.0-47.0); HEMOGLOBIN 9.7 g/dl (12.0-16.0); LYMPHOCYTES % 11.4 % (15.0-51.0); MEAN CORPUSCULAR HEMOGLOBIN 31.8 pg (29.0-33.0); MEAN CORPUSCULAR HGB CONC 31.8 g/dl (32.0-37.0); MEAN PLATELET VOLUME 11.4 fl (7.4-10.4); MONOCYTE # 0.2 10^3/ul (0.3-0.9); MONOCYTES % 1.8 % (0.0-11.0); NEUTROPHIL # 7.3 10^3/ul (1.6-7.5); NEUTROPHILS % 85.9 % (39.0-77.0); PLATELET COUNT 126 10^3/UL (140-415); RED BLOOD COUNT 3.05 10^6/ul (4.20-5.40); RED CELL DISTRIBUTION WIDTH 14.6 % (11.5-14.5); WHITE BLOOD COUNT 8.5 10^3/ul (4.8-10.8)
[2017-02-24 07:26] LABS: INR 1.11; PROTIME 14.3 Sec (12.2-14.2); PT RATIO 1.1
[2017-02-24 07:37] LABS: ALBUMIN 3.3 g/dl (3.3-4.9); ALBUMIN/GLOBULIN RATIO 0.94; BILIRUBIN,INDIRECT 0.1 mg/dl (0-1.1); BILIRUBIN,TOTAL 0.1 mg/dl (0.2-1.3); CALCIUM 8.9 mg/dl (8.4-10.2); CHOL/HDL RATIO 1.9 RATIO; CREATININE 3.22 mg/dl (0.44-1.00); MAGNESIUM 1.8 mg/dl (1.7-2.5); POTASSIUM 4.6 mmol/L (3.5-5.1); TOTAL PROTEIN 6.8 g/dl (6.1-8.1)
[2017-02-24 07:43] LABS: CK-MB 6.33 ng/ml (0.0-2.4)
[2017-02-24 07:48] LABS: TROPONIN-I 0.249 ng/ml (0.00-0.12)
[2017-02-24 08:03] LABS: THYROID STIMULATING HORMONE 0.968 MIU/L (0.465-4.680)
[2017-02-24] MEDS: SOD CHLORIDE 0.9% 1,000 ML IV SCH (10:44)
--- NOTE | 2017-02-24 12:19 | RADRPT ---
PROCEDURE: XR Chest. CLINICAL INDICATION: ET tube placement TECHNIQUE: Single frontal chest x-ray. COMPARISON: 01:03 a.m. FINDINGS: Endotracheal tube in place with tip 1 cm above the young. Nasogastric tube extending into the stom ach. Left-sided tunneled dialysis catheter in place. Bilateral interstitial infiltrates or edema i s unchanged. . Cardiomegaly with calcific atherosclerosis of the aorta is present.. No evidence of pneumothorax. The osseous structures are intact. IMPRESSION: Tubes and lines unchanged. Diffuse bilateral interstitial infiltrates or edema unchanged. RPTAT: QQ .Aden Barriga MD, MD Date Time Electronically viewed and signed by .Aden Barriga MD, MD on 02/24/2017 12:19 .L/
--- NOTE | 2017-02-24 12:20 | PN ---
Date/Time of Note Date/Time of Note DATE: 02/24/17 TIME: 12:11 Assessment/Plan VTE Prophylaxis VTE Prophylaxis Intervention: other Lines/Catheters [facility] permacath Central line still needed: Yes Urinary Cath still in place: No Assessment/Plan Chief Complaint/Hosp Course 1. Cardiopulmonary arrest 2. Shock probably septic shock [address] elevation on EKG patient is well with no significant flow- limiting obstruction on the coronary angiogram 4. Renal failure on dialysis 5. History of hypertension now hypotensive in shock 6. Diabetes 7. History of dyslipidemia 8. Hypoxemic respiratory failure currently intubated on the vent 9. Diarrhea 10. AI: mod/ severe: etiology unclear. no evidence of aortic dissection on CT chest. r/o endocarditis/ bacteremia. Recommendations: I will hold off on any anticoagulant or aspirin for now. We will try to wean off the Levophed. hemodialysis per renal consult. Diabetic management as per internal medicine. Antibiotic management as per internal medicine. Continue the vent support for now. cont ICU care and vent support More than 40 minutes of critical care time was reminded to increase patient excluding any procedures Thank you for his referral. I will continue to follow along with you. MALCOLM SANCHEZ MD [facility] Problems: Subjective 24 Hr Interval Summary Free Text/Dictation CARDIOLOGY FOLLOW UP NOTE/ Critical care tessie: d/w staff and Dr Andrade rhythm was reviewed. pt remains in NSR. intubated on vent and still on levophed drip. nonverbal OBJECTIVE: General obese female started with intubation on the vent. HEENT: NC/AT. NECK: NO JVD. no stridor. CV: RRR. systolic murmur; no gallop or rubs. PULM: no wheezing or rhonchi anteriorly. GI: SOFT, NT, ND, no rebound or guarding Extremity: trace B/L LE edema. no clubbing. Vascular: R fem venous in place. no hematoma or bleeding neuro: sedated. Psych: gets intermittently agitated. rectal: deferred : normal echo personally reviewed: 1. Hyperdynamic left ventricular systolic function. Normal left ventricular cavity size. Mild concentric left ventricular hypertrophy. Ejection fraction is visually estimated at 70 %. Tissue Doppler/Mitral Doppler indices are consistent with impaired relaxation (Stage I diastolic dysfunction). 2. Normal right ventricular systolic function. Mild enlargement of right ventricle. 3. Mild mitral leaflet calcification. Mild mitral annular calcification. Trace mitral regurgitation. 4. Aortic sclerosis without stenosis. Trileaflet aortic valve. Moderate to severe aortic valve regurgitation. The regurgitation jet is eccentrically directed. 5. Normal appearance of the tricuspid valve. Estimated peak PA systolic pressure 62 mmHg. There is mild tricuspid regurgitation. 6. Normal IVC with respiratory collapse, however patient on ventilator. Exam/Review of Systems Vital Signs Vitals Vital Signs Date Time Temp Pulse Resp B/P Pulse Ox O2 Delivery O2 Flow Rate FiO2 02/24/17 08:45 60 18 95/41 100 02/24/17 08:00 97.9 Mechanical Ventilator 02/24/17 08:00 40 02/23/17 11:57 15.0 Intake and Output 02/23/17 02/23/17 02/24/17 15:00 23:00 07:00 Intake Total 722.61 ml 119.01 ml Output Total 0 ml 0 ml Balance 722.61 ml 119.01 ml Results Result Diagram: 02/24/17 0515 02/24/17 0515 Results 24 hrs Laboratory Tests Test 02/23/17 15:30 02/23/17 17:06 02/23/17 18:17 02/24/17 00:47 White Blood Count 13.8 H Red Blood Count 3.22 L Hemoglobin 10.6 L Hematocrit 32.7 #L Mean Corpuscular Volume 101.6 H Mean Corpuscular Hemoglobin 32.9 Mean Corpuscular Hemoglobin Concent 32.4 Red Cell Distribution Width 14.3 Platelet Count 144 Mean Platelet Volume 10.4 Neutrophils % 85.9 H Lymphocytes % 5.8 L Monocytes % 5.7 Eosinophils % 1.2 Basophils % 0.7 Nucleated Red Blood Cells % 0.0 Neutrophils # 11.9 H Lymphocytes # 0.8 Monocytes # 0.8 Eosinophils # 0.2 Basophils # 0.1 Nucleated Red Blood Cells # 0.0 Activated Partial Thromboplast Time 112.5 *H Sodium Level 137 Potassium Level 4.5 Chloride Level 96 L Carbon Dioxide Level 28 # Anion Gap 18 #H Blood Urea Nitrogen 14 Creatinine 2.46 H Glucose Level 137 # Lactic Acid Level 1.3 1.6 Calcium Level 8.0 L Magnesium Level 1.8 Bedside Glucose 137 104 Test 02/24/17 03:02 02/24/17 05:15 02/24/17 06:00 02/24/17 08:02 Bedside Glucose 116 111 White Blood Count 8.5 # Red Blood Count 3.05 L Hemoglobin 9.7 L Hematocrit 30.5 L Mean Corpuscular Volume 100.0 Mean Corpuscular Hemoglobin 31.8 Mean Corpuscular Hemoglobin Concent 31.8 L Red Cell Distribution Width 14.6 H Platelet Count 126 L Mean Platelet Volume 11.4 H Neutrophils % 85.9 H Lymphocytes % 11.4 L Monocytes % 1.8 Eosinophils % 0.0 Basophils % 0.5 Nucleated Red Blood Cells % 0.0 Neutrophils # 7.3 Lymphocytes # 1.0 Monocytes # 0.2 L Eosinophils # 0.0 Basophils # 0.0 Nucleated Red Blood Cells # 0.0 Prothrombin Time 14.3 H Prothrombin Time Ratio 1.1 INR International Normalized Ratio 1.11 Sodium Level 134 L Potassium Level 4.6 Chloride Level 96 L Carbon Dioxide Level 24 Anion Gap 19 H Blood Urea Nitrogen 20 Creatinine 3.22 H Glucose Level 111 Calcium Level 8.9 Magnesium Level 1.8 Total Bilirubin 0.1 L Direct Bilirubin 0.00 Indirect Bilirubin 0.1 Aspartate Amino Transf (AST/SGOT) 64 H Alanine Aminotransferase (ALT/SGPT) 64 Alkaline Phosphatase 125 H Creatine Kinase 162 Creatine Kinase Index 3.9 Creatinine Kinase MB (Mass) 6.33 H Troponin I 0.249 *H Total Protein 6.8 # Albumin 3.3 # Globulin 3.50 H Albumin/Globulin Ratio 0.94 Triglycerides Level 92 Cholesterol Level 163 LDL Cholesterol, Calculated 60 HDL Cholesterol 85 Cholesterol/HDL Ratio 1.9 Thyroid Stimulating Hormone (TSH) 0.968 Free Thyroxine 1.40 Test 02/24/17 12:09 Bedside Glucose 106 Medications Medications Current Medications Cefepime HCl (Maxipime 1gm/50 ml (Pmx)) 50 ml @ 100 mls/hr Q24H IVPB Last administered on 02/23/17 18:02; Admin Dose 100 MLS/HR; Start 02/23/17 at 16:36 Ondansetron HCl (Zofran Inj) 4 mg Q6H PRN IV NAUSEA AND/OR VOMITING; Start 02/23 at 15:30 Methylprednisolone Sodium Succinate (Solu-Medrol) 60 mg Q6 IV Last administered on 02/24/17 05:43; Admin Dose 60 MG; Start 02/23/17 at 18:00 Pantoprazole (Protonix Iv) 40 mg DAILY@06 IV Last administered on 02/24/17 05: 43; Admin Dose 40 MG; Start 02/24/17 at 06:00 Diagnostic Test (Pha) (Accu-Chek) 1 ea 02 XX ; Start 02/24/17 at 02:00 Insulin Aspart (Novolog Insulin Pen) NOVOLOG *MODERATE* ALGORITHM Q6 SC ; Start 02/23/17 at 18:00 Miscellaneous Information 1 ea NOTE XX ; Start 02/23/17 at 16:30 Glucose (Glutose) 15 gm Q15M PRN PO DECREASED GLUCOSE; Start 02/23/17 at 16:30 Glucose (Glutose) 22.5 gm Q15M PRN PO DECREASED GLUCOSE; Start 02/23/17 at 16:30 Dextrose (D50w Syringe) 25 ml Q15M PRN IV DECREASED GLUCOSE; Start 02/23/17 at 16:30 Dextrose (D50w Syringe) 50 ml Q15M PRN IV DECREASED GLUCOSE; Start 02/23/17 at 16:30 Glucagon (Glucagen) 1 mg Q15M PRN IM DECREASED GLUCOSE; Start 02/23/17 at 16:30 Glucose 15 gm 15 gm Q15M PRN BUCCAL DECREASED GLUCOSE; Start 02/23/17 at 16:30 Propofol 100 ml @ 2.07 mls/hr Q12H IV Last administered on 02/24/17 10:42; Admin Dose 16.56 MLS/HR; Start 02/23/17 at 18:30 Norepinephrine 16 mg/Dextrose 500 ml @ 0 mls/hr TITRATE IV Last administered on 02/24/17 08:55; Admin Dose 1.87 MLS/HR; Start 02/24/17 at 07:00 Sodium Chloride (NS) 1,000 ml @ 50 mls/hr Q20H IV Last administered on 10:44; Admin Dose 50 MLS/HR; Start 02/24/17 at 10:30 MALCOLM SANCHEZ MD Feb 24, 2017 12:20
--- NOTE | 2017-02-24 13:17 | CONS ---
Date/Time of Note Date/Time of Note DATE: 02/24/17 TIME: 13:14 Assessment/Plan Assessment/Plan Chief Complaint/Hosp Course 1. ESRD 2. DM TYPE ii UNCONTROLLED 3. CAD 4. S/P CARDIOPULMONARY ARREST 5. Anemia 6. Overweight Problems: Additional Assessment/Plan 1. CONTINUE HD NEEDED Consultation Date/Type/Reason Admit Date/Time Feb 23, 2017 at 14:20 Initial Consult Date 02/23/17 Type of Consultation: renal Reason for Consultation dR Tapia Referring Provider: KELLIE JAMIL MD 24 HR Interval Summary Subjective hx not possible: pt non-verbal, pt critical status Exam/Review of Systems Vital Signs Vitals Vital Signs Date Time Temp Pulse Resp B/P Pulse Ox O2 Delivery O2 Flow Rate FiO2 02/24/17 08:45 60 18 95/41 100 02/24/17 08:00 97.9 Mechanical Ventilator 02/24/17 08:00 40 02/23/17 11:57 15.0 Intake and Output 02/23/17 02/23/17 02/24/17 15:00 23:00 07:00 Intake Total 722.61 ml 119.01 ml Output Total 0 ml 0 ml Balance 722.61 ml 119.01 ml Exam Constitutional: non-verbal Neck: supple Respiratory: diminished breath sounds Cardiovascular: regular rate and rhythm Genitourinary - Female: nl external genitalia Results Result Diagram: 02/24/17 0515 02/24/17 0515 Results 24 hrs Laboratory Tests Test 02/23/17 15:30 02/23/17 17:06 02/23/17 18:17 02/24/17 00:47 White Blood Count 13.8 H Red Blood Count 3.22 L Hemoglobin 10.6 L Hematocrit 32.7 #L Mean Corpuscular Volume 101.6 H Mean Corpuscular Hemoglobin 32.9 Mean Corpuscular Hemoglobin Concent 32.4 Red Cell Distribution Width 14.3 Platelet Count 144 Mean Platelet Volume 10.4 Neutrophils % 85.9 H Lymphocytes % 5.8 L Monocytes % 5.7 Eosinophils % 1.2 Basophils % 0.7 Nucleated Red Blood Cells % 0.0 Neutrophils # 11.9 H Lymphocytes # 0.8 Monocytes # 0.8 Eosinophils # 0.2 Basophils # 0.1 Nucleated Red Blood Cells # 0.0 Activated Partial Thromboplast Time 112.5 *H Sodium Level 137 Potassium Level 4.5 Chloride Level 96 L Carbon Dioxide Level 28 # Anion Gap 18 #H Blood Urea Nitrogen 14 Creatinine 2.46 H Glucose Level 137 # Lactic Acid Level 1.3 1.6 Calcium Level 8.0 L Magnesium Level 1.8 Bedside Glucose 137 104 Test 02/24/17 03:02 02/24/17 05:15 02/24/17 06:00 02/24/17 08:02 Bedside Glucose 116 111 White Blood Count 8.5 # Red Blood Count 3.05 L Hemoglobin 9.7 L Hematocrit 30.5 L Mean Corpuscular Volume 100.0 Mean Corpuscular Hemoglobin 31.8 Mean Corpuscular Hemoglobin Concent 31.8 L Red Cell Distribution Width 14.6 H Platelet Count 126 L Mean Platelet Volume 11.4 H Neutrophils % 85.9 H Lymphocytes % 11.4 L Monocytes % 1.8 Eosinophils % 0.0 Basophils % 0.5 Nucleated Red Blood Cells % 0.0 Neutrophils # 7.3 Lymphocytes # 1.0 Monocytes # 0.2 L Eosinophils # 0.0 Basophils # 0.0 Nucleated Red Blood Cells # 0.0 Prothrombin Time 14.3 H Prothrombin Time Ratio 1.1 INR International Normalized Ratio 1.11 Sodium Level 134 L Potassium Level 4.6 Chloride Level 96 L Carbon Dioxide Level 24 Anion Gap 19 H Blood Urea Nitrogen 20 Creatinine 3.22 H Glucose Level 111 Calcium Level 8.9 Magnesium Level 1.8 Total Bilirubin 0.1 L Direct Bilirubin 0.00 Indirect Bilirubin 0.1 Aspartate Amino Transf (AST/SGOT) 64 H Alanine Aminotransferase (ALT/SGPT) 64 Alkaline Phosphatase 125 H Creatine Kinase 162 Creatine Kinase Index 3.9 Creatinine Kinase MB (Mass) 6.33 H Troponin I 0.249 *H Total Protein 6.8 # Albumin 3.3 # Globulin 3.50 H Albumin/Globulin Ratio 0.94 Triglycerides Level 92 Cholesterol Level 163 LDL Cholesterol, Calculated 60 HDL Cholesterol 85 Cholesterol/HDL Ratio 1.9 Thyroid Stimulating Hormone (TSH) 0.968 Free Thyroxine 1.40 Test 02/24/17 12:09 Bedside Glucose 106 Medications Medications Current Medications Cefepime HCl (Maxipime 1gm/50 ml (Pmx)) 50 ml @ 100 mls/hr Q24H IVPB Last administered on 02/23/17t 18:02; Admin Dose 100 MLS/HR; Start 02/23/17 at 16:36 Ondansetron HCl (Zofran Inj) 4 mg Q6H PRN IV NAUSEA AND/OR VOMITING; Start 02/23 at 15:30 Methylprednisolone Sodium Succinate (Solu-Medrol) 60 mg Q6 IV Last administered on 02/24/17 12:11; Admin Dose 60 MG; Start 02/23/17 at 18:00 Pantoprazole (Protonix Iv) 40 mg DAILY@06 IV Last administered on 02/24/17 05: 43; Admin Dose 40 MG; Start 02/24/17 at 06:00 Diagnostic Test (Pha) (Accu-Chek) 1 ea 02 XX ; Start 02/24/17 at 02:00 Insulin Aspart (Novolog Insulin Pen) NOVOLOG *MODERATE* ALGORITHM Q6 SC ; Start 02/23/17 at 18:00 Miscellaneous Information 1 ea NOTE XX ; Start 02/23/17 at 16:30 Glucose (Glutose) 15 gm Q15M PRN PO DECREASED GLUCOSE; Start 02/23/17 at 16:30 Glucose (Glutose) 22.5 gm Q15M PRN PO DECREASED GLUCOSE; Start 02/23/17 at 16:30 Dextrose (D50w Syringe) 25 ml Q15M PRN IV DECREASED GLUCOSE; Start 02/23/17 at 16:30 Dextrose (D50w Syringe) 50 ml Q15M PRN IV DECREASED GLUCOSE; Start 02/23/17 at 16:30 Glucagon (Glucagen) 1 mg Q15M PRN IM DECREASED GLUCOSE; Start 02/23/17 at 16:30 Glucose 15 gm 15 gm Q15M PRN BUCCAL DECREASED GLUCOSE; Start 02/23/17 at 16:30 Propofol 100 ml @ 2.07 mls/hr Q12H IV Last administered on 02/24/17 10:42; Admin Dose 16.56 MLS/HR; Start 02/23/17 at 18:30 Norepinephrine 16 mg/Dextrose 500 ml @ 0 mls/hr TITRATE IV Last administered on 02/24/17 08:55; Admin Dose 1.87 MLS/HR; Start 02/24/17 at 07:00 Sodium Chloride (NS) 1,000 ml @ 100 mls/hr Q10H IV Last administered on 10:44; Admin Dose 50 MLS/HR; Start 8/5/17 at 10:30 ANDREA BERG Feb 24, 2017 13:17
--- NOTE | 2017-02-24 13:26 | PN ---
Date/Time of Note Date/Time of Note DATE: 02/24/17 TIME: 13:18 Assessment/Plan VTE Prophylaxis VTE Prophylaxis Intervention: SCD's Lines/Catheters IV Catheter Type (from Nrsg): Central Line (permacath) Central line still needed: Yes Urinary Cath still in place: No Assessment/Plan Chief Complaint/Hosp Course Patient is a 76-year-old female with past medical history of end-stage renal disease who presented with cardiopulmonary arrest following dialysis and feeling weak at home. Assessment and problem list Cardiopulmonary arrest, PEA Acute respiratory failure, secondary to PEA arrest Interstitial opacity Pneumonia ST elevation on EKG Septic shock, pneumonia with leukocytosis and respiratory rate End-stage renal disease, on hemodialysis Hypertensive emergency, transient secondary to pressure on a line Altered mental status Lactic acidosis Elevated AST and ALT, likely secondary to hypoperfusion [place] anion gap metabolic acidosis, secondary to lactic acid very likely Hypertension, chronic Diabetes Dyslipidemia Mild pulmonary edema Plan -in ICU, cardiology performed emergent cardiac cath, no signs of ischemic disease, patient intubated and sedated at this time. No obvious source of arrest. At this time possible sepsis and hypoxia most likely. -No thrombosis per cath, no tension pneumothorax per chest x-ray, no tamponade per chest x-ray and echo, no electrolyte derangement per renal panel, ABG only mildly acidotic, which leads to hypovolemia and hypoxia with sepsis as the most likely culprit -CTA showed interstitial disease, but did also show mod hydroureteronephrosis, call made to urology, which explained due to patient's ESRD status, of less clinical importance at this current time. Repeat CT abdomen/pelvis would need IV contrast, which would be need to be timed with hemodialysis. will hold off on CT abdomen/pelvis for now. -Dr. Borden, nephrology consulted for ESRD, outside beauty director unknown at this time due to sedated nature -Dr. Evans, cardiology and Dr. Coburn, pulmonology on, extubate when able per pulmonology. -Panculture with antibiotics, cefepime per piercing mill operator -Steroids for possible pulmonary issues leading to cardiac arrest -Repeat lactic acid, on pressors, on fluids -Sliding scale insulin with long-acting insulin -Closely monitor Jus Andrade DO Problems: Subjective 24 Hr Interval Summary Free Text/Dictation patient sedated, but easily aroused Exam/Review of Systems Vital Signs Vitals Vital Signs Date Time Temp Pulse Resp B/P Pulse Ox O2 Delivery O2 Flow Rate FiO2 02/24/17 08:45 60 18 95/41 100 02/24/17 08:00 97.9 Mechanical Ventilator 02/24/17 08:00 40 02/23/17 11:57 15.0 Intake and Output 02/23/17 02/23/17 02/24/17 15:00 23:00 07:00 Intake Total 722.61 ml 119.01 ml Output Total 0 ml 0 ml Balance 722.61 ml 119.01 ml Exam Physical exam General: Patient is laying in bed intubated, on propofol Mentation: Patient is sedated Head: Normocephalic atraumatic Eyes: sluggish pupils Neck: Supple, nontender, midline Respiratory: coarse to auscultation bilaterally Cardiovascular: tachycardic, Gastrointestinal: non-tender to palpation, bowel sounds heard. ant abdominal hernia palpated. Neurological: Moves all extremities spontaneously Skin: No new skin lesions Results Result Diagram: 02/24/17 0515 02/24/17 0515 Results 24 hrs Laboratory Tests Test 02/23/17 15:30 02/23/17 17:06 02/23/17 18:17 02/24/17 00:47 White Blood Count 13.8 H Red Blood Count 3.22 L Hemoglobin 10.6 L Hematocrit 32.7 #L Mean Corpuscular Volume 101.6 H Mean Corpuscular Hemoglobin 32.9 Mean Corpuscular Hemoglobin Concent 32.4 Red Cell Distribution Width 14.3 Platelet Count 144 Mean Platelet Volume 10.4 Neutrophils % 85.9 H Lymphocytes % 5.8 L Monocytes % 5.7 Eosinophils % 1.2 Basophils % 0.7 Nucleated Red Blood Cells % 0.0 Neutrophils # 11.9 H Lymphocytes # 0.8 Monocytes # 0.8 Eosinophils # 0.2 Basophils # 0.1 Nucleated Red Blood Cells # 0.0 Activated Partial Thromboplast Time 112.5 *H Sodium Level 137 Potassium Level 4.5 Chloride Level 96 L Carbon Dioxide Level 28 # Anion Gap 18 #H Blood Urea Nitrogen 14 Creatinine 2.46 H Glucose Level 137 # Lactic Acid Level 1.3 1.6 Calcium Level 8.0 L Magnesium Level 1.8 Bedside Glucose 137 104 Test 02/24/17 03:02 02/24/17 05:15 02/24/17 06:00 8/5/17 08:02 Bedside Glucose 116 111 White Blood Count 8.5 # Red Blood Count 3.05 L Hemoglobin 9.7 L Hematocrit 30.5 L Mean Corpuscular Volume 100.0 Mean Corpuscular Hemoglobin 31.8 Mean Corpuscular Hemoglobin Concent 31.8 L Red Cell Distribution Width 14.6 H Platelet Count 126 L Mean Platelet Volume 11.4 H Neutrophils % 85.9 H Lymphocytes % 11.4 L Monocytes % 1.8 Eosinophils % 0.0 Basophils % 0.5 Nucleated Red Blood Cells % 0.0 Neutrophils # 7.3 Lymphocytes # 1.0 Monocytes # 0.2 L Eosinophils # 0.0 Basophils # 0.0 Nucleated Red Blood Cells # 0.0 Prothrombin Time 14.3 H Prothrombin Time Ratio 1.1 INR International Normalized Ratio 1.11 Sodium Level 134 L Potassium Level 4.6 Chloride Level 96 L Carbon Dioxide Level 24 Anion Gap 19 H Blood Urea Nitrogen 20 Creatinine 3.22 H Glucose Level 111 Calcium Level 8.9 Magnesium Level 1.8 Total Bilirubin 0.1 L Direct Bilirubin 0.00 Indirect Bilirubin 0.1 Aspartate Amino Transf (AST/SGOT) 64 H Alanine Aminotransferase (ALT/SGPT) 64 Alkaline Phosphatase 125 H Creatine Kinase 162 Creatine Kinase Index 3.9 Creatinine Kinase MB (Mass) 6.33 H Troponin I 0.249 *H Total Protein 6.8 # Albumin 3.3 # Globulin 3.50 H Albumin/Globulin Ratio 0.94 Triglycerides Level 92 Cholesterol Level 163 LDL Cholesterol, Calculated 60 HDL Cholesterol 85 Cholesterol/HDL Ratio 1.9 Thyroid Stimulating Hormone (TSH) 0.968 Free Thyroxine 1.40 Test 02/24/17 12:09 Bedside Glucose 106 Medications Medications Current Medications Cefepime HCl (Maxipime 1gm/50 ml (Pmx)) 50 ml @ 100 mls/hr Q24H IVPB Last administered on 02/23/17 18:02; Admin Dose 100 MLS/HR; Start 02/23/17 at 16:36 Ondansetron HCl (Zofran Inj) 4 mg Q6H PRN IV NAUSEA AND/OR VOMITING; Start 02/23 at 15:30 Methylprednisolone Sodium Succinate (Solu-Medrol) 60 mg Q6 IV Last administered on 02/24/17 12:11; Admin Dose 60 MG; Start 02/23/17 at 18:00 Pantoprazole (Protonix Iv) 40 mg DAILY@06 IV Last administered on 02/24/17 05: 43; Admin Dose 40 MG; Start 02/24/17 at 06:00 Diagnostic Test (Pha) (Accu-Chek) 1 ea 02 XX ; Start 02/24/17 at 02:00 Insulin Aspart (Novolog Insulin Pen) NOVOLOG *MODERATE* ALGORITHM Q6 SC ; Start 02/23/17 at 18:00 Miscellaneous Information 1 ea NOTE XX ; Start 02/23/17 at 16:30 Glucose (Glutose) 15 gm Q15M PRN PO DECREASED GLUCOSE; Start 02/23/17 at 16:30 Glucose (Glutose) 22.5 gm Q15M PRN PO DECREASED GLUCOSE; Start 02/23/17 at 16:30 Dextrose (D50w Syringe) 25 ml Q15M PRN IV DECREASED GLUCOSE; Start 02/23/17 at 16:30 Dextrose (D50w Syringe) 50 ml Q15M PRN IV DECREASED GLUCOSE; Start 02/23/17 at 16:30 Glucagon (Glucagen) 1 mg Q15M PRN IM DECREASED GLUCOSE; Start 02/23/17 at 16:30 Glucose 15 gm 15 gm Q15M PRN BUCCAL DECREASED GLUCOSE; Start 02/23/17 at 16:30 Propofol 100 ml @ 2.07 mls/hr Q12H IV Last administered on 02/24/17 10:42; Admin Dose 16.56 MLS/HR; Start 02/23/17 at 18:30 Norepinephrine 16 mg/Dextrose 500 ml @ 0 mls/hr TITRATE IV Last administered on 02/24/17 08:55; Admin Dose 1.87 MLS/HR; Start 02/24/17 at 07:00 Sodium Chloride (NS) 1,000 ml @ 100 mls/hr Q10H IV Last administered on 10:44; Admin Dose 50 MLS/HR; Start 02/24/17 at 10:30 JUS ANDRADE Feb 24, 2017 13:26
--- NOTE | 2017-02-24 13:55 | CONS ---
Date/Time of Note Date/Time of Note DATE: 02/24/17 TIME: 13:52 Consult Date/Type/Reason Admit Date/Time Feb 23, 2017 at 14:20 Initial Consult Date 02/23/17 Type of Consultation: Pulm/CCM Ordering Provider: KELLIE JAMIL [facility] P[facility] at 38 cm H20. Objective Vital Signs Date Time Temp Pulse Resp B/P Pulse Ox O2 Delivery O2 Flow Rate FiO2 02/24/17 12:00 62 02/24/17 08:45 18 95/41 100 02/24/17 08:00 97.9 Mechanical Ventilator 02/24/17 08:00 40 02/23/17 11:57 15.0 Intake and Output 02/23/17 02/23/17 02/24/17 15:00 23:00 07:00 Intake Total 722.61 ml 119.01 ml Output Total 0 ml 0 ml Balance 722.61 ml 119.01 ml Exam HEENT: Neck supple; no JVD; no LAD CVS: RRR, S1 and S2 CHEST: Bibasilar rales ABD: Soft, NT, + BS EXT: No c/c; + edema Results/Medications Result Diagram: 02/24/17 0515 02/24/17 0515 Results 24 hrs Laboratory Tests Test 02/23/17 15:30 02/23/17 17:06 02/23/17 18:17 02/24/17 00:47 White Blood Count 13.8 H Red Blood Count 3.22 L Hemoglobin 10.6 L Hematocrit 32.7 #L Mean Corpuscular Volume 101.6 H Mean Corpuscular Hemoglobin 32.9 Mean Corpuscular Hemoglobin Concent 32.4 Red Cell Distribution Width 14.3 Platelet Count 144 Mean Platelet Volume 10.4 Neutrophils % 85.9 H Lymphocytes % 5.8 L Monocytes % 5.7 Eosinophils % 1.2 Basophils % 0.7 Nucleated Red Blood Cells % 0.0 Neutrophils # 11.9 H Lymphocytes # 0.8 Monocytes # 0.8 Eosinophils # 0.2 Basophils # 0.1 Nucleated Red Blood Cells # 0.0 Activated Partial Thromboplast Time 112.5 *H Sodium Level 137 Potassium Level 4.5 Chloride Level 96 L Carbon Dioxide Level 28 # Anion Gap 18 #H Blood Urea Nitrogen 14 Creatinine 2.46 H Glucose Level 137 # Lactic Acid Level 1.3 1.6 Calcium Level 8.0 L Magnesium Level 1.8 Bedside Glucose 137 104 Test 02/24/17 03:02 02/24/17 05:15 02/24/17 06:00 02/24/17 08:02 Bedside Glucose 116 111 White Blood Count 8.5 # Red Blood Count 3.05 L Hemoglobin 9.7 L Hematocrit 30.5 L Mean Corpuscular Volume 100.0 Mean Corpuscular Hemoglobin 31.8 Mean Corpuscular Hemoglobin Concent 31.8 L Red Cell Distribution Width 14.6 H Platelet Count 126 L Mean Platelet Volume 11.4 H Neutrophils % 85.9 H Lymphocytes % 11.4 L Monocytes % 1.8 Eosinophils % 0.0 Basophils % 0.5 Nucleated Red Blood Cells % 0.0 Neutrophils # 7.3 Lymphocytes # 1.0 Monocytes # 0.2 L Eosinophils # 0.0 Basophils # 0.0 Nucleated Red Blood Cells # 0.0 Prothrombin Time 14.3 H Prothrombin Time Ratio 1.1 INR International Normalized Ratio 1.11 Sodium Level 134 L Potassium Level 4.6 Chloride Level 96 L Carbon Dioxide Level 24 Anion Gap 19 H Blood Urea Nitrogen 20 Creatinine 3.22 H Glucose Level 111 Calcium Level 8.9 Magnesium Level 1.8 Total Bilirubin 0.1 L Direct Bilirubin 0.00 Indirect Bilirubin 0.1 Aspartate Amino Transf (AST/SGOT) 64 H Alanine Aminotransferase (ALT/SGPT) 64 Alkaline Phosphatase 125 H Creatine Kinase 162 Creatine Kinase Index 3.9 Creatinine Kinase MB (Mass) 6.33 H Troponin I 0.249 *H Total Protein 6.8 # Albumin 3.3 # Globulin 3.50 H Albumin/Globulin Ratio 0.94 Triglycerides Level 92 Cholesterol Level 163 LDL Cholesterol, Calculated 60 HDL Cholesterol 85 Cholesterol/HDL Ratio 1.9 Thyroid Stimulating Hormone (TSH) 0.968 Free Thyroxine 1.40 Test 02/24/17 12:09 Bedside Glucose 106 Medications Current Medications Cefepime HCl (Maxipime 1gm/50 ml (Pmx)) 50 ml @ 100 mls/hr Q24H IVPB Last administered on 02/23/17t 18:02; Admin Dose 100 MLS/HR; Start 02/23/17 at 16:36 Ondansetron HCl (Zofran Inj) 4 mg Q6H PRN IV NAUSEA AND/OR VOMITING; Start 02/23 at 15:30 Methylprednisolone Sodium Succinate (Solu-Medrol) 60 mg Q6 IV Last administered on 02/24/17 12:11; Admin Dose 60 MG; Start 02/23/17 at 18:00 Pantoprazole (Protonix Iv) 40 mg DAILY@06 IV Last administered on 02/24/17 05: 43; Admin Dose 40 MG; Start 02/24/17 at 06:00 Diagnostic Test (Pha) (Accu-Chek) 1 ea 02 XX ; Start 02/24/17 at 02:00 Insulin Aspart (Novolog Insulin Pen) NOVOLOG *MODERATE* ALGORITHM Q6 SC ; Start 02/23/17 at 18:00 Miscellaneous Information 1 ea NOTE XX ; Start 02/23/17 at 16:30 Glucose (Glutose) 15 gm Q15M PRN PO DECREASED GLUCOSE; Start 02/23/17 at 16:30 Glucose (Glutose) 22.5 gm Q15M PRN PO DECREASED GLUCOSE; Start 02/23/17 at 16:30 Dextrose (D50w Syringe) 25 ml Q15M PRN IV DECREASED GLUCOSE; Start 02/23/17 at 16:30 Dextrose (D50w Syringe) 50 ml Q15M PRN IV DECREASED GLUCOSE; Start 02/23/17 at 16:30 Glucagon (Glucagen) 1 mg Q15M PRN IM DECREASED GLUCOSE; Start 02/23/17 at 16:30 Glucose 15 gm 15 gm Q15M PRN BUCCAL DECREASED GLUCOSE; Start 02/23/17 at 16:30 Propofol 100 ml @ 2.07 mls/hr Q12H IV Last administered on 02/24/17 10:42; Admin Dose 16.56 MLS/HR; Start 02/23/17 at 18:30 Norepinephrine 16 mg/Dextrose 500 ml @ 0 mls/hr TITRATE IV Last administered on 02/24/17 08:55; Admin Dose 1.87 MLS/HR; Start 02/24/17 at 07:00 Sodium Chloride (NS) 1,000 ml @ 100 mls/hr Q10H IV Last administered on 10:44; Admin Dose 50 MLS/HR; Start 02/24/17 at 10:30 Assessment/Plan Additional Assessment/Plan IMP: 1. Hypoxemic Respiratory Failure 2. s/p PEA arrest--etiology not entirely clear 3. ESRD on HD 4. Advanced ILD--consistent with chronic HP 5. Anemia RECS: 1. Sedation holiday 2. Reduce VT to 400; follow plateau pressures 3. Abx 4. HD 5. Will wean as tolerated. 35 min cc time ROSE MARY LOPEZ MD Feb 24, 2017 13:55
[2017-02-24] MEDS: CEFEPIME 1GM/50 ML (PMX) 50 ML IVPB SCH (16:23)
--- NOTE | 2017-02-24 16:47 | QN ---
Documentation Comment [id number] CONSULT FERNY GARCIA MD Feb 24, 2017 16:47
[2017-02-25] VITALS (55 sets, daily range): BP systolic 91–154; BP diastolic 36–126; PULSE 63–83; RESP 12–31
[2017-02-25] MEDS: METHYLPREDNISOLONE 125 MG INJ IV SCH ×2 (00:53→05:57)
[2017-02-25] MEDS: SOD CHLORIDE 0.9% 1,000 ML IV SCH ×2 (00:54→08:01)
[2017-02-25] MEDS: INSULIN ASPART [NOVOLOG] 3 ML PEN SC SCH ×5 (00:55→23:37)
[2017-02-25] MEDS: PROPOFOL 100 ML IV SCH ×5 (01:09→19:07)
[2017-02-25] MEDS: ALBUTEROL 18 GM INHALER INH SCH ×4 (01:45→19:50)
[2017-02-25] MEDS: IPRATROPIUM (HFA) 12.9 GM INHALER INH SCH ×4 (01:45→19:51)
[2017-02-25] MEDS: ACCU-CHEK XX SCH (02:00)
[2017-02-25 05:03] LABS: AADO2 Arterial 95.7 mmHg (7.0-24.0); Allen Test ACCEPTAB; Arterial Base Excess -1.1 mmol/L (-3.0-3); Arterial COHb 0.5 % (0.0-3.0); Arterial Fraction of Oxyhgb 97.5 % (93.0-99.0); Arterial HCO3 24.7 mmol/L (22.0-26.0); Arterial MetHb 0.4 % (0.0-1.5); MODE VENT - AC
[2017-02-25] MEDS: PANTOPRAZOLE 40 MG INJ IV SCH (05:57)
[2017-02-25 06:02] LABS: BASOPHILS % 0.2 % (0.0-2.0); HEMATOCRIT 27.8 % (37.0-47.0); HEMOGLOBIN 9.2 g/dl (12.0-16.0); LYMPHOCYTES # 0.7 10^3/ul (0.8-2.9); LYMPHOCYTES % 6.2 % (15.0-51.0); MEAN CORPUSCULAR HEMOGLOBIN 33.5 pg (29.0-33.0); MEAN CORPUSCULAR HGB CONC 33.1 g/dl (32.0-37.0); MEAN CORPUSCULAR VOLUME 101.1 fl (82.0-101.0); MEAN PLATELET VOLUME 10.5 fl (7.4-10.4); MONOCYTE # 0.5 10^3/ul (0.3-0.9); MONOCYTES % 4.2 % (0.0-11.0); NEUTROPHIL # 9.4 10^3/ul (1.6-7.5); NEUTROPHILS % 88.6 % (39.0-77.0); PLATELET COUNT 142 10^3/UL (140-415); RED BLOOD COUNT 2.75 10^6/ul (4.20-5.40); RED CELL DISTRIBUTION WIDTH 14.6 % (11.5-14.5); WHITE BLOOD COUNT 10.6 10^3/ul (4.8-10.8)
[2017-02-25 06:40] LABS: CALCIUM 8.7 mg/dl (8.4-10.2); CREATININE 3.12 mg/dl (0.44-1.00); MAGNESIUM 1.9 mg/dl (1.7-2.5); PHOSPHORUS 6.3 mg/dl (2.5-4.9); POTASSIUM 4.2 mmol/L (3.5-5.1)
--- NOTE | 2017-02-25 08:04 | RADRPT ---
PROCEDURE: US Retroperitoneum CLINICAL INDICATION: Chronic kidney disease TECHNIQUE: Multiple sonographic images of the kidneys and bladder were obtained. Evaluation was p erformed as well with kim scale and color and Doppler evaluation using a curved array transducer. The images were reviewed on a high-resolution PACS workstation. COMPARISON: CT, 02/23/2017 FINDINGS: The kidneys are well visualized. The right kidney measures 11.0 cm in length. The left kidney measu res 8.6 cm in length. Bilateral benign appearing renal cysts are identified measuring up to 3.3 cm o n the right. Both kidneys demonstrate cortical thinning and increased cortical echogenicity. No cliff id renal mass, calculus, hydronephrosis or perinephric fluid collection is identified. The bladder is collapsed around a Greenberg catheter balloon. IMPRESSION: 1. Both kidneys demonstrate cortical thinning and echogenicity, suggestive of chronic medical renal disease. 2. Multiple bilateral benign appearing renal cysts are noted, as above. 3. No hydronephrosis or evidence of renal calculus is identified. RPTAT: PP .Galdino Knight MD, MD Date Time Electronically viewed and signed by .Galdino Knight MD, on 02/25/2017 08:04 .R/
--- NOTE | 2017-02-25 11:41 | CONS ---
Date/Time of Note Date/Time of Note DATE: 02/25/17 TIME: 11:38 Consult Date/Type/Reason Admit Date/Time Feb 23, 2017 at 14:20 Initial Consult Date 02/23/17 Type of Consultation: Pulm/CCM Ordering Provider: KELLIE JAMIL MD Subjective CARDIOLOGY FOLLOW UP NOTE/ Critical care tessie: d/w staff and Dr Andrade. d/w family rhythm was reviewed. pt remains in NSR. pt remains intubated on vent but BP is better and is off of levophed drip. nonverbal pt is able to move and follows basic command per RN, but still keeps pulling on her tube when less sedated. OBJECTIVE: General obese female started with intubation on the vent. HEENT: NC/AT. NECK: NO JVD. no stridor. CV: RRR. systolic murmur; no gallop or rubs. PULM: no wheezing or rhonchi anteriorly. GI: SOFT, NT, ND, no rebound or guarding Extremity: trace B/L LE edema. no clubbing. Vascular: R fem venous in place. no hematoma or bleeding neuro: sedated. Psych: gets intermittently agitated. rectal: deferred : normal echo personally reviewed: 1. Hyperdynamic left ventricular systolic function. Normal left ventricular cavity size. Mild concentric left ventricular hypertrophy. Ejection fraction is visually estimated at 70 %. Tissue Doppler/Mitral Doppler indices are consistent with impaired relaxation (Stage I diastolic dysfunction). 2. Normal right ventricular systolic function. Mild enlargement of right ventricle. 3. Mild mitral leaflet calcification. Mild mitral annular calcification. Trace mitral regurgitation. 4. Aortic sclerosis without stenosis. Trileaflet aortic valve. Moderate to severe aortic valve regurgitation. The regurgitation jet is eccentrically directed. 5. Normal appearance of the tricuspid valve. Estimated peak PA systolic pressure 62 mmHg. There is mild tricuspid regurgitation. 6. Normal IVC with respiratory collapse, however patient on ventilator. Objective Vital Signs Date Time Temp Pulse Resp B/P Pulse Ox O2 Delivery O2 Flow Rate FiO2 02/25/17 11:21 73 20 98 30 02/25/17 11:00 111/49 Mechanical Ventilator 02/25/17 08:00 99.1 02/23/17 11:57 15.0 Intake and Output 02/24/17 02/24/17 02/25/17 15:00 23:00 07:00 Intake Total 310.00 ml 1265.77 ml 834.9 ml Output Total 0 ml 1500 ml 0 ml Balance 310.00 ml -234.23 ml 834.9 ml Results/Medications Result Diagram: 02/25/17 0558 02/25/17 0558 Results 24 hrs Laboratory Tests Test 02/24/17 12:09 02/24/17 18:47 02/25/17 00:48 02/25/17 05:00 Bedside Glucose 106 131 166 Blood Gas Specimen Source Blood arterial Arterial Blood Date Drawn 02/25/2017 4:55:11 AM Arterial Blood pH (Temp corrected) 7.342 L Arterial Blood pCO2 (Temp correct) 46.7 H Arterial Blood pO2 (Temp corrected) 135.8 H Arterial Blood HCO3 24.7 Arterial Blood Base Excess -1.1 Arterial Blood Oxygen Saturation 98.4 Giovanny Test ACCEPTAB Arterial Blood Gas Puncture Site Left Radial Arterial Blood Carboxyhemoglobin 0.5 Arterial Blood Methemoglobin 0.4 Blood Gas A-a O2 Differential 95.7 H Oxyhemoglobin Percent 97.5 Total Hemoglobin 10.0 L Blood Gas Temperature 37.0 Blood Gas Respiration Rate 16.0 Blood Gas Actual Respiration Rate 24 Blood Gas Modality VENT - AC FiO2 40.0 Blood Gas Tidal Volume 400.0 Blood Gas Low PEEP Setting 5.0 Blood Gas Notified Whom LW Blood Gas Notified Time 02/25/2017 5:03:18 AM Test 02/25/17 05:58 02/25/17 06:05 White Blood Count 10.6 # Red Blood Count 2.75 L Hemoglobin 9.2 L Hematocrit 27.8 L Mean Corpuscular Volume 101.1 H Mean Corpuscular Hemoglobin 33.5 H Mean Corpuscular Hemoglobin Concent 33.1 Red Cell Distribution Width 14.6 H Platelet Count 142 Mean Platelet Volume 10.5 H Neutrophils % 88.6 H Lymphocytes % 6.2 L Monocytes % 4.2 Eosinophils % 0.0 Basophils % 0.2 Nucleated Red Blood Cells % 0.0 Neutrophils # 9.4 H Lymphocytes # 0.7 L Monocytes # 0.5 Eosinophils # 0.0 Basophils # 0.0 Nucleated Red Blood Cells # 0.0 Sodium Level 137 Potassium Level 4.2 Chloride Level 96 L Carbon Dioxide Level 26 Anion Gap 19 H Blood Urea Nitrogen 23 H Creatinine 3.12 H Glucose Level 125 Calcium Level 8.7 Phosphorus Level 6.3 H Magnesium Level 1.9 Bedside Glucose 142 Medications Current Medications Cefepime HCl (Maxipime 1gm/50 ml (Pmx)) 50 ml @ 100 mls/hr Q24H IVPB Last administered on 02/24/17 16:23; Admin Dose 100 MLS/HR; Start 02/23/17 at 16:36 Ondansetron HCl (Zofran Inj) 4 mg Q6H PRN IV NAUSEA AND/OR VOMITING; Start 02/23 at 15:30 Methylprednisolone Sodium Succinate (Solu-Medrol) 60 mg Q6 IV Last administered on 02/25/17 05:57; Admin Dose 60 MG; Start 02/23/17 at 18:00 Pantoprazole (Protonix Iv) 40 mg DAILY@06 IV Last administered on 02/25/17 05: 57; Admin Dose 40 MG; Start 02/24/17 at 06:00 Diagnostic Test (Pha) (Accu-Chek) 1 ea 02 XX ; Start 02/24/17 at 02:00 Insulin Aspart (Novolog Insulin Pen) NOVOLOG *MODERATE* ALGORITHM Q6 SC Last administered on 02/25/17 06:08; Admin Dose 2 UNIT; Start 02/23/17 at 18:00 Miscellaneous Information 1 ea NOTE XX ; Start 02/23/17 at 16:30 Glucose (Glutose) 15 gm Q15M PRN PO DECREASED GLUCOSE; Start 02/23/17 at 16:30 Glucose (Glutose) 22.5 gm Q15M PRN PO DECREASED GLUCOSE; Start 02/23/17 at 16:30 Dextrose (D50w Syringe) 25 ml Q15M PRN IV DECREASED GLUCOSE; Start 02/23/17 at 16:30 Dextrose (D50w Syringe) 50 ml Q15M PRN IV DECREASED GLUCOSE; Start 02/23/17 at 16:30 Glucagon (Glucagen) 1 mg Q15M PRN IM DECREASED GLUCOSE; Start 02/23/17 at 16:30 Glucose 15 gm 15 gm Q15M PRN BUCCAL DECREASED GLUCOSE; Start 02/23/17 at 16:30 Propofol 100 ml @ 2.07 mls/hr Q12H IV Last administered on 02/25/17 09:46; Admin Dose 18.63 MLS/HR; Start 02/23/17 at 18:30 Norepinephrine 16 mg/Dextrose 500 ml @ 0 mls/hr TITRATE IV Last administered on 02/24/17 08:55; Admin Dose 1.87 MLS/HR; Start 02/24/17 at 07:00 Sodium Chloride (NS) 1,000 ml @ 100 mls/hr Q10H IV Last administered on 08:01; Admin Dose 100 MLS/HR; Start 02/24/17 at 10:30 Assessment/Plan Chief Complaint/Hosp Course 1. Cardiopulmonary arrest 2. Shock probably septic shock 3. transient ST elevation on EKG patient is well with no significant flow- limiting obstruction on the coronary angiogram 4. Renal failure on dialysis 5. History of hypertension now hypotensive in shock 6. Diabetes 7. History of dyslipidemia 8. Hypoxemic respiratory failure currently intubated on the vent 9. Diarrhea 10. AI: mod/ severe: etiology unclear. no evidence of aortic dissection on CT chest. r/o endocarditis/ bacteremia. Recommendations:. off the Levophed now. hemodialysis per renal consult. Diabetic management as per internal medicine. Antibiotic management as per internal medicine. Continue the vent support for now and try weaning (defer to pulm team. ). . cont ICU care and vent support More than 37 minutes of critical care time was reminded to increase patient excluding any procedures Thank you for his referral. I will continue to follow along with you. MALCOLM SANCHEZ MD [facility] Problems: MALCOLM SANCHEZ MD Feb 25, 2017 11:41
--- NOTE | 2017-02-25 12:04 | PN ---
Date/Time of Note Date/Time of Note DATE: 02/25/17 TIME: 12:01 Assessment/Plan VTE Prophylaxis VTE Prophylaxis Intervention: SCD's Lines/Catheters IV [facility] PERMACATH Urinary Cath still in place: No Assessment/Plan Chief Complaint/Hosp Course Patient is a 76-year-old female with past medical history of end-stage renal disease who presented with cardiopulmonary arrest following dialysis and feeling weak at home. Assessment and problem list Cardiopulmonary arrest, PEA Acute respiratory failure, secondary to PEA arrest Interstitial opacity Pneumonia ST elevation on EKG Septic shock, pneumonia with leukocytosis and respiratory rate End-stage renal disease, on hemodialysis Hypertensive emergency, transient secondary to pressure on a line Altered mental status Lactic acidosis Elevated AST and ALT, likely secondary to hypoperfusion [place] anion gap metabolic acidosis, secondary to lactic acid very likely Hypertension, chronic Diabetes Dyslipidemia Mild pulmonary edema Plan -barrier to extubation is altered state. -in ICU, cardiology performed emergent cardiac cath, no signs of ischemic disease, patient intubated and sedated at this time. No obvious source of arrest. At this time possible sepsis and hypoxia most likely. -No thrombosis per cath, no tension pneumothorax per chest x-ray, no tamponade per chest x-ray and echo, no electrolyte derangement per renal panel, ABG only mildly acidotic, which leads to hypovolemia and hypoxia with sepsis as the most likely cause -CTA showed interstitial disease, but did also show mod hydroureteronephrosis, call made to urology, which explained due to patient's ESRD status, of less clinical importance at this current time. Repeat CT abdomen/pelvis would need IV contrast, which would be need to be timed with hemodialysis. will hold off on CT abdomen/pelvis for now. -Dr. Borden, nephrology consulted for ESRD, outside pipe production worker unknown at this time due to sedated nature -Dr. Evans, cardiology and Dr. Coburn, pulmonology on, extubate when able per pulmonology. -Panculture with antibiotics, cefepime per drug abuse social worker -Taper steroids for possible pulmonary issues leading to cardiac arrest -stopped fluids, patient now off pressors -Sliding scale insulin with long-acting insulin -Closely monitor Jus Andrade DO Problems: Exam/Review of Systems Vital Signs Vitals Vital Signs Date Time Temp Pulse Resp B/P Pulse Ox O2 Delivery O2 Flow Rate FiO2 02/25/17 11:21 73 20 98 30 02/25/17 11:00 111/49 Mechanical Ventilator 02/25/17 08:00 99.1 02/23/17 11:57 15.0 Intake and Output 02/24/17 02/24/17 02/25/17 15:00 23:00 07:00 Intake Total 310.00 ml 1265.77 ml 834.9 ml Output Total 0 ml 1500 ml 0 ml Balance 310.00 ml -234.23 ml 834.9 ml Exam Physical exam General: Patient is laying in bed intubated, on propofol Mentation: Patient is sedated Head: Normocephalic atraumatic Eyes: sluggish pupils Neck: Supple, nontender, midline Respiratory: coarse to auscultation bilaterally Cardiovascular: tachycardic, Gastrointestinal: non-tender to palpation, bowel sounds heard. ant abdominal hernia palpated. Neurological: Moves all extremities spontaneously Skin: No new skin lesions Results Result Diagram: 02/25/17 0558 02/25/17 0558 Results 24 hrs Laboratory Tests Test 02/24/17 12:09 02/24/17 18:47 02/25/17 00:48 02/25/17 05:00 Bedside Glucose 106 131 166 Blood Gas Specimen Source Blood arterial Arterial Blood Date Drawn 02/25/2017 4:55:11 AM Arterial Blood pH (Temp corrected) 7.342 L Arterial Blood pCO2 (Temp correct) 46.7 H Arterial Blood pO2 (Temp corrected) 135.8 H Arterial Blood HCO3 24.7 Arterial Blood Base Excess -1.1 Arterial Blood Oxygen Saturation 98.4 Giovanny Test ACCEPTAB Arterial Blood Gas Puncture Site Left Radial Arterial Blood Carboxyhemoglobin 0.5 Arterial Blood Methemoglobin 0.4 Blood Gas A-a O2 Differential 95.7 H Oxyhemoglobin Percent 97.5 Total Hemoglobin 10.0 L Blood Gas Temperature 37.0 Blood Gas Respiration Rate 16.0 Blood Gas Actual Respiration Rate 24 Blood Gas Modality VENT - AC FiO2 40.0 Blood Gas Tidal Volume 400.0 Blood Gas Low PEEP Setting 5.0 Blood Gas Notified Whom LW Blood Gas Notified Time 02/25/2017 5:03:18 AM Test 02/25/17 05:58 02/25/17 06:05 White Blood Count 10.6 # Red Blood Count 2.75 L Hemoglobin 9.2 L Hematocrit 27.8 L Mean Corpuscular Volume 101.1 H Mean Corpuscular Hemoglobin 33.5 H Mean Corpuscular Hemoglobin Concent 33.1 Red Cell Distribution Width 14.6 H Platelet Count 142 Mean Platelet Volume 10.5 H Neutrophils % 88.6 H Lymphocytes % 6.2 L Monocytes % 4.2 Eosinophils % 0.0 Basophils % 0.2 Nucleated Red Blood Cells % 0.0 Neutrophils # 9.4 H Lymphocytes # 0.7 L Monocytes # 0.5 Eosinophils # 0.0 Basophils # 0.0 Nucleated Red Blood Cells # 0.0 Sodium Level 137 Potassium Level 4.2 Chloride Level 96 L Carbon Dioxide Level 26 Anion Gap 19 H Blood Urea Nitrogen 23 H Creatinine 3.12 H Glucose Level 125 Calcium Level 8.7 Phosphorus Level 6.3 H Magnesium Level 1.9 Bedside Glucose 142 Medications Medications Current Medications Cefepime HCl (Maxipime 1gm/50 ml (Pmx)) 50 ml @ 100 mls/hr Q24H IVPB Last administered on 02/24/17 16:23; Admin Dose 100 MLS/HR; Start 02/23/17 at 16:36 Ondansetron HCl (Zofran Inj) 4 mg Q6H PRN IV NAUSEA AND/OR VOMITING; Start 02/23 at 15:30 Methylprednisolone Sodium Succinate (Solu-Medrol) 60 mg Q6 IV Last administered on 02/25/17 05:57; Admin Dose 60 MG; Start 02/23/17 at 18:00 Pantoprazole (Protonix Iv) 40 mg DAILY@06 IV Last administered on 02/25/17 05: 57; Admin Dose 40 MG; Start 02/24/17 at 06:00 Diagnostic Test (Pha) (Accu-Chek) 1 ea 02 XX ; Start 02/24/17 at 02:00 Insulin Aspart (Novolog Insulin Pen) NOVOLOG *MODERATE* ALGORITHM Q6 SC Last administered on 02/25/17 06:08; Admin Dose 2 UNIT; Start 02/23/17 at 18:00 Miscellaneous Information 1 ea NOTE XX ; Start 02/23/17 at 16:30 Glucose (Glutose) 15 gm Q15M PRN PO DECREASED GLUCOSE; Start 02/23/17 at 16:30 Glucose (Glutose) 22.5 gm Q15M PRN PO DECREASED GLUCOSE; Start 02/23/17 at 16:30 Dextrose (D50w Syringe) 25 ml Q15M PRN IV DECREASED GLUCOSE; Start 02/23/17 at 16:30 Dextrose (D50w Syringe) 50 ml Q15M PRN IV DECREASED GLUCOSE; Start 02/23/17 at 16:30 Glucagon (Glucagen) 1 mg Q15M PRN IM DECREASED GLUCOSE; Start 02/23/17 at 16:30 Glucose 15 gm 15 gm Q15M PRN BUCCAL DECREASED GLUCOSE; Start 02/23/17 at 16:30 Propofol 100 ml @ 2.07 mls/hr Q12H IV Last administered on 02/25/17 09:46; Admin Dose 18.63 MLS/HR; Start 02/23/17 at 18:30 Norepinephrine/ Dextrose (Levophed/D5W) 500 ml @ 0 mls/hr TITRATE IV Last administered on 02/24/17 08:55; Admin Dose 1.87 MLS/HR; Start 02/24/17 at 07:00 JUS ANDRADE Feb 25, 2017 12:04
--- NOTE | 2017-02-25 12:52 | CONS ---
Date/Time of Note Date/Time of Note DATE: 02/25/17 TIME: 12:50 Consult Date/Type/Reason Admit Date/Time Feb 23, 2017 at 14:20 Initial Consult Date 02/23/17 Type of Consultation: Pulm/CCM Ordering Provider: KELLIE JAMIL MD Subjective No events. Following commands on propofol gtt. Objective Vital Signs Date Time Temp Pulse Resp B/P Pulse Ox O2 Delivery O2 Flow Rate FiO2 02/25/17 12:00 74 02/25/17 11:21 20 98 30 02/25/17 11:00 111/49 Mechanical Ventilator 02/25/17 08:00 99.1 02/23/17 11:57 15.0 Intake and Output 02/24/17 02/24/17 02/25/17 15:00 23:00 07:00 Intake Total 310.00 ml 1265.77 ml 834.9 ml Output Total 0 ml 1500 ml 0 ml Balance 310.00 ml -234.23 ml 834.9 ml Exam HEENT: Neck supple; no JVD; no LAD; + ET tube CVS: RRR, S1 and S2 CHEST: Bibasilar rales ABD: Soft, NT, + BS EXT: No c/c; + edema Results/Medications Result Diagram: 02/25/17 0558 02/25/17 0558 Results 24 hrs Laboratory Tests Test 02/24/17 18:47 02/25/17 00:48 02/25/17 05:00 02/25/17 05:58 Bedside Glucose 131 166 Blood Gas Specimen Source Blood arterial Arterial Blood Date Drawn 02/25/2017 4:55:11 AM Arterial Blood pH (Temp corrected) 7.342 L Arterial Blood pCO2 (Temp correct) 46.7 H Arterial Blood pO2 (Temp corrected) 135.8 H Arterial Blood HCO3 24.7 Arterial Blood Base Excess -1.1 Arterial Blood Oxygen Saturation 98.4 Giovanny Test ACCEPTAB Arterial Blood Gas Puncture Site Left Radial Arterial Blood Carboxyhemoglobin 0.5 Arterial Blood Methemoglobin 0.4 Blood Gas A-a O2 Differential 95.7 H Oxyhemoglobin Percent 97.5 Total Hemoglobin 10.0 L Blood Gas Temperature 37.0 Blood Gas Respiration Rate 16.0 Blood Gas Actual Respiration Rate 24 Blood Gas Modality VENT - AC FiO2 40.0 Blood Gas Tidal Volume 400.0 Blood Gas Low PEEP Setting 5.0 Blood Gas Notified Whom LW Blood Gas Notified Time 02/25/2017 5:03:18 AM White Blood Count 10.6 # Red Blood Count 2.75 L Hemoglobin 9.2 L Hematocrit 27.8 L Mean Corpuscular Volume 101.1 H Mean Corpuscular Hemoglobin 33.5 H Mean Corpuscular Hemoglobin Concent 33.1 Red Cell Distribution Width 14.6 H Platelet Count 142 Mean Platelet Volume 10.5 H Neutrophils % 88.6 H Lymphocytes % 6.2 L Monocytes % 4.2 Eosinophils % 0.0 Basophils % 0.2 Nucleated Red Blood Cells % 0.0 Neutrophils # 9.4 H Lymphocytes # 0.7 L Monocytes # 0.5 Eosinophils # 0.0 Basophils # 0.0 Nucleated Red Blood Cells # 0.0 Sodium Level 137 Potassium Level 4.2 Chloride Level 96 L Carbon Dioxide Level 26 Anion Gap 19 H Blood Urea Nitrogen 23 H Creatinine 3.12 H Glucose Level 125 Calcium Level 8.7 Phosphorus Level 6.3 H Magnesium Level 1.9 Test 02/25/17 06:05 02/25/17 12:17 Bedside Glucose 142 154 Medications Current Medications Cefepime HCl (Maxipime 1gm/50 ml (Pmx)) 50 ml @ 100 mls/hr Q24H IVPB Last administered on 02/24/17 16:23; Admin Dose 100 MLS/HR; Start 02/23/17 at 16:36 Ondansetron HCl (Zofran Inj) 4 mg Q6H PRN IV NAUSEA AND/OR VOMITING; Start 02/23 at 15:30 Pantoprazole (Protonix Iv) 40 mg DAILY@06 IV Last administered on 02/25/17 05: 57; Admin Dose 40 MG; Start 02/24/17 at 06:00 Diagnostic Test (Pha) (Accu-Chek) 1 ea 02 XX ; Start 02/24/17 at 02:00 Insulin Aspart (Novolog Insulin Pen) NOVOLOG *MODERATE* ALGORITHM Q6 SC Last administered on 02/25/17 12:25; Admin Dose 2 UNIT; Start 02/23/17 at 18:00 Miscellaneous Information 1 ea NOTE XX ; Start 02/23/17 at 16:30 Glucose (Glutose) 15 gm Q15M PRN PO DECREASED GLUCOSE; Start 02/23/17 at 16:30 Glucose (Glutose) 22.5 gm Q15M PRN PO DECREASED GLUCOSE; Start 02/23/17 at 16:30 Dextrose (D50w Syringe) 25 ml Q15M PRN IV DECREASED GLUCOSE; Start 02/23/17 at 16:30 Dextrose (D50w Syringe) 50 ml Q15M PRN IV DECREASED GLUCOSE; Start 02/23/17 at 16:30 Glucagon (Glucagen) 1 mg Q15M PRN IM DECREASED GLUCOSE; Start 02/23/17 at 16:30 Glucose 15 gm 15 gm Q15M PRN BUCCAL DECREASED GLUCOSE; Start 02/23/17 at 16:30 Propofol 100 ml @ 2.07 mls/hr Q12H IV Last administered on 02/25/17 09:46; Admin Dose 18.63 MLS/HR; Start 02/23/17 at 18:30 Norepinephrine/ Dextrose (Levophed/D5W) 500 ml @ 0 mls/hr TITRATE IV Last administered on 02/24/17 08:55; Admin Dose 1.87 MLS/HR; Start 02/24/17 at 07:00 Methylprednisolone Sodium Succinate (Solu-Medrol) 40 mg Q8 IV ; Start 02/25/17 at 14:00 Assessment/Plan Additional Assessment/Plan IMP: 1. Hypoxemic Respiratory Failure 2. s/p PEA arrest--etiology not entirely clear 3. ESRD on HD 4. Advanced ILD--consistent with chronic HP 5. Anemia RECS: 1. Transition to precedex at midnight 2. To CPAP 5 PS 8 at 7 am 3. Abx 4. HD in am 5. Minimize narcotics 35 min cc time ROSE MARY LOPEZ MD Feb 25, 2017 12:52
--- NOTE | 2017-02-25 13:39 | RADRPT ---
PROCEDURE: XR Chest. CLINICAL INDICATION: Respiratory distress TECHNIQUE: Single frontal view of the chest was obtained COMPARISON: 02/24/2017 FINDINGS: The endotracheal tube and nasogastric tube remain in position. The left-sided dialysis catheter remains in position. Atherosclerotic changes are seen in the aortic arch. There is persistent fullness in the superior mediastinum, likely exaggerated by the portable AP natu re of the film. The heart is upper limits of normal in size. Pulmonary vascular congestion is slightly improved. Bibasilar infiltrates are also slightly improved. The pleural spaces are grossly clear. The bones and soft tissue show no acute change. IMPRESSION: 1. Tubes and lines remain in position. 2. Persistent fullness in the superior mediastinum, likely exaggerated by the portable AP nature of the film. 3. Slight improvement to pulmonary vascular congestion and bibasilar infiltrates. RPTAT:AAJJ Physician Madeline Date Time Electronically viewed and signed by Stanislaw Warren Physician on 02/25/2017 13:39 JOSE MIGUEL/
[2017-02-25] MEDS: METHYLPREDNISOLONE 40 MG INJ IV SCH ×2 (14:54→22:02)
[2017-02-25] MEDS: CEFEPIME 1GM/50 ML (PMX) 50 ML IVPB SCH (16:30)
--- NOTE | 2017-02-25 18:07 | CONS ---
Date/Time of Note Date/Time of Note DATE: 02/25/17 TIME: 18:05 Assessment/Plan Assessment/Plan Chief Complaint/Hosp Course A/P S/P ARREST DM S/P PEA PUL EDEMA LUNG INFILTERATE CAD ESRD S/P HD PLAN PER ORDER HD AM Problems: Consultation Date/Type/Reason Admit Date/Time Feb 23, 2017 at 14:20 Initial Consult Date 02/23/17 Type of Consultation: RENAL Referring Provider: KELLIE JAMIL MD 24 HR Interval Summary Subjective hx not possible: pt non-verbal Exam/Review of Systems Vital Signs Vitals Vital Signs Date Time Temp Pulse Resp B/P Pulse Ox O2 Delivery O2 Flow Rate FiO2 02/25/17 17:15 70 25 100 30 02/25/17 11:00 111/49 Mechanical Ventilator 02/25/17 08:00 99.1 02/23/17 11:57 15.0 Intake and Output 02/24/17 02/24/17 02/25/17 15:00 23:00 07:00 Intake Total 310.00 ml 1265.77 ml 834.9 ml Output Total 0 ml 1500 ml 0 ml Balance 310.00 ml -234.23 ml 834.9 ml Exam Neck: supple Respiratory: diminished breath sounds Cardiovascular: regular rate and rhythm Gastrointestinal: bowel sounds (+), soft Extremities: edema (+) Results Result Diagram: 02/25/17 0558 02/25/17 0558 Results 24 hrs Laboratory Tests Test 02/24/17 18:47 02/25/17 00:48 02/25/17 05:00 02/25/17 05:58 Bedside Glucose 131 166 Blood Gas Specimen Source Blood arterial Arterial Blood Date Drawn 02/25/2017 4:55:11 AM Arterial Blood pH (Temp corrected) 7.342 L Arterial Blood pCO2 (Temp correct) 46.7 H Arterial Blood pO2 (Temp corrected) 135.8 H Arterial Blood HCO3 24.7 Arterial Blood Base Excess -1.1 Arterial Blood Oxygen Saturation 98.4 Giovanny Test ACCEPTAB Arterial Blood Gas Puncture Site Left Radial Arterial Blood Carboxyhemoglobin 0.5 Arterial Blood Methemoglobin 0.4 Blood Gas A-a O2 Differential 95.7 H Oxyhemoglobin Percent 97.5 Total Hemoglobin 10.0 L Blood Gas Temperature 37.0 Blood Gas Respiration Rate 16.0 Blood Gas Actual Respiration Rate 24 Blood Gas Modality VENT - AC FiO2 40.0 Blood Gas Tidal Volume 400.0 Blood Gas Low PEEP Setting 5.0 Blood Gas Notified Whom LW Blood Gas Notified Time 02/25/2017 5:03:18 AM White Blood Count 10.6 # Red Blood Count 2.75 L Hemoglobin 9.2 L Hematocrit 27.8 L Mean Corpuscular Volume 101.1 H Mean Corpuscular Hemoglobin 33.5 H Mean Corpuscular Hemoglobin Concent 33.1 Red Cell Distribution Width 14.6 H Platelet Count 142 Mean Platelet Volume 10.5 H Neutrophils % 88.6 H Lymphocytes % 6.2 L Monocytes % 4.2 Eosinophils % 0.0 Basophils % 0.2 Nucleated Red Blood Cells % 0.0 Neutrophils # 9.4 H Lymphocytes # 0.7 L Monocytes # 0.5 Eosinophils # 0.0 Basophils # 0.0 Nucleated Red Blood Cells # 0.0 Sodium Level 137 Potassium Level 4.2 Chloride Level 96 L Carbon Dioxide Level 26 Anion Gap 19 H Blood Urea Nitrogen 23 H Creatinine 3.12 H Glucose Level 125 Calcium Level 8.7 Phosphorus Level 6.3 H Magnesium Level 1.9 Test 02/25/17 06:05 02/25/17 12:17 Bedside Glucose 142 154 Medications Medications Current Medications Cefepime HCl (Maxipime 1gm/50 ml (Pmx)) 50 ml @ 100 mls/hr Q24H IVPB Last administered on 02/25/17 16:30; Admin Dose 100 MLS/HR; Start 02/23/17 at 16:36 Ondansetron HCl (Zofran Inj) 4 mg Q6H PRN IV NAUSEA AND/OR VOMITING; Start 02/23 at 15:30 Pantoprazole (Protonix Iv) 40 mg DAILY@06 IV Last administered on 02/25/17 05: 57; Admin Dose 40 MG; Start 02/24/17 at 06:00 Diagnostic Test (Pha) (Accu-Chek) 1 ea 02 XX ; Start 02/24/17 at 02:00 Insulin Aspart (Novolog Insulin Pen) NOVOLOG *MODERATE* ALGORITHM Q6 SC Last administered on 02/25/17 12:25; Admin Dose 2 UNIT; Start 02/23/17 at 18:00 Miscellaneous Information 1 ea NOTE XX ; Start 02/23/17 at 16:30 Glucose (Glutose) 15 gm Q15M PRN PO DECREASED GLUCOSE; Start 02/23/17 at 16:30 Glucose (Glutose) 22.5 gm Q15M PRN PO DECREASED GLUCOSE; Start 02/23/17 at 16:30 Dextrose (D50w Syringe) 25 ml Q15M PRN IV DECREASED GLUCOSE; Start 02/23/17 at 16:30 Dextrose (D50w Syringe) 50 ml Q15M PRN IV DECREASED GLUCOSE; Start 02/23/17 at 16:30 Glucagon (Glucagen) 1 mg Q15M PRN IM DECREASED GLUCOSE; Start 02/23/17 at 16:30 Glucose 15 gm 15 gm Q15M PRN BUCCAL DECREASED GLUCOSE; Start 02/23/17 at 16:30 Propofol 100 ml @ 2.07 mls/hr Q12H IV Last administered on 02/25/17 14:54; Admin Dose 18.63 MLS/HR; Start 02/23/17 at 18:30 Norepinephrine/ Dextrose (Levophed/D5W) 500 ml @ 0 mls/hr TITRATE IV Last administered on 02/24/17 08:55; Admin Dose 1.87 MLS/HR; Start 02/24/17 at 07:00 Methylprednisolone Sodium Succinate 40 mg 40 mg Q8 IV Last administered on 14:54; Admin Dose 40 MG; Start 02/25/17 at 14:00 Dexmedetomidine HCl/Sodium Chloride (Precedex/NS) 50 ml @ 3.45 mls/hr TITRATE IV ; Start 02/26/17 at 00:00; Stop 02/26/17 at 12:00 Latanoprost (Xalatan) 1 drop HS BOTH EYES ; Start 02/25/17 at 21:00 Brimonidine Tartrate (Alphagan P 0.15%) 1 drop BID BOTH EYES ; Start 02/25/17 at 21:00 Dorzolamide/ Timolol (Cosopt) 1 drop BID BOTH EYES ; Start 02/25/17 at 21:00 FERNY GARCIA MD Feb 25, 2017 18:07
[2017-02-25] MEDS: BRIMONIDINE 0.15% 5 ML OPH BOTH EYES SCH (20:46)
[2017-02-25] MEDS: LATANOPROST 0.005% 2.5 ML OPH BOTH EYES SCH (20:46)
[2017-02-25] MEDS: DORZOLAMIDE/TIMOLOL 10 ML OPH BOTH EYES SCH (20:46)
[2017-02-26] VITALS (53 sets, daily range): BP systolic 92–146; BP diastolic 39–61; PULSE 55–76; RESP 15–28
[2017-02-26] MEDS: DEXMEDETOMIDINE HCL 200 MCG in SOD CHLORIDE 0.9% 48 ML IV SCH ×2 (00:18→04:28)
[2017-02-26] MEDS: PROPOFOL 100 ML IV SCH ×2 (01:08→14:42)
[2017-02-26] MEDS: ACCU-CHEK XX SCH (02:00)
[2017-02-26] MEDS: IPRATROPIUM (HFA) 12.9 GM INHALER INH SCH ×4 (02:21→19:32)
[2017-02-26] MEDS: ALBUTEROL 18 GM INHALER INH SCH ×4 (02:21→19:32)
[2017-02-26 05:17] LABS: ABNORMAL IP MESSAGE 1; HEMATOCRIT 27.8 % (37.0-47.0); HEMOGLOBIN 8.8 g/dl (12.0-16.0); LYMPHOCYTES # 0.5 10^3/ul (0.8-2.9); LYMPHOCYTES % 6.1 % (15.0-51.0); MEAN CORPUSCULAR HEMOGLOBIN 31.9 pg (29.0-33.0); MEAN CORPUSCULAR HGB CONC 31.7 g/dl (32.0-37.0); MEAN CORPUSCULAR VOLUME 100.7 fl (82.0-101.0); MEAN PLATELET VOLUME 11.1 fl (7.4-10.4); MONOCYTE # 0.5 10^3/ul (0.3-0.9); MONOCYTES % 5.2 % (0.0-11.0); NEUTROPHIL # 7.7 10^3/ul (1.6-7.5); NEUTROPHILS % 88.2 % (39.0-77.0); PLATELET COUNT 129 10^3/UL (140-415); RED BLOOD COUNT 2.76 10^6/ul (4.20-5.40); RED CELL DISTRIBUTION WIDTH 14.4 % (11.5-14.5); WHITE BLOOD COUNT 8.7 10^3/ul (4.8-10.8)
[2017-02-26 05:26] LABS: POSITIVE DIFF @See below
[2017-02-26] MEDS: METHYLPREDNISOLONE 40 MG INJ IV SCH ×3 (05:42→21:22)
[2017-02-26] MEDS: PANTOPRAZOLE 40 MG INJ IV SCH (05:42)
[2017-02-26] MEDS: INSULIN ASPART [NOVOLOG] 3 ML PEN SC SCH ×3 (05:47→18:22)
[2017-02-26 06:01] LABS: POTASSIUM 5.3 mmol/L (3.5-5.1)
[2017-02-26 06:02] LABS: CALCIUM 8.7 mg/dl (8.4-10.2); CREATININE 4.63 mg/dl (0.44-1.00); MAGNESIUM 2.1 mg/dl (1.7-2.5); PHOSPHORUS 7.8 mg/dl (2.5-4.9)
[2017-02-26 07:01] LABS: AADO2 Arterial 70.7 mmHg (7.0-24.0); Allen Test ACCEPTAB; Arterial Base Excess -2.5 mmol/L (-3.0-3); Arterial COHb 0.7 % (0.0-3.0); Arterial Fraction of Oxyhgb 94.3 % (93.0-99.0); Arterial HCO3 23.6 mmol/L (22.0-26.0); Arterial MetHb 0.4 % (0.0-1.5); Arterial Total Hemglobin 9.4 g/dl (12.0-18.0); MODE VENT - AC
--- NOTE | 2017-02-26 08:00 | RADRPT ---
PROCEDURE: XR Chest 1 view. CLINICAL INDICATION: Shortness of breath TECHNIQUE: AP views of the chest was obtained. COMPARISON: Yesterday FINDINGS: The heart is large. Calcified atherosclerosis is noted in the aorta. Endotracheal and nasogastric t ubes are stable and appear in grossly appropriate location. Left-sided dialysis catheter is unchang ed. Central pulmonary vascular congestion and interstitial prominence in both lungs is stable. Mil d perihilar infiltrates in both lungs have mildly increased. The osseous structures are unchanged. IMPRESSION: Cardiomegaly with calcified atherosclerosis in the aorta. Central pulmonary vascular congestion and interstitial prominence is seen in both lungs. Mild interval increase in perihilar infiltrates in both lungs. RPTAT: AA .Ibrahima Collado MD, MD Date Time Electronically viewed and signed by .Ibrahima Collado MD, on 02/26/2017 08:00 .P/
--- NOTE | 2017-02-26 08:01 | CONS ---
DATE OF ADMISSION: 02/23/2017 DATE OF CONSULTATION: 02/24/2017 Thank you, Dr. Jus Andrade, for kindly asking me to see this patient in nephrology consultation. HISTORY OF PRESENT ILLNESS: The patient is a 76-year-old female, who has a history of ESRD, presented after cardiopulmonary arrest. The patient was taken to the lab support service tech. The patient underwent a left heart cath, selective right and left coronary angiography, right femoral angiogram, moderate sedation. Patient finding left main coronary arteries normal, LAD is moderate size vessel and goes through the apex, 40 percent stenosis proximally, and 40 percent mid LAD, left circumflex artery is nondominant, right coronary artery is a dominant vessel with 30 percent stenosis. The patient's blood pressure was 159/53 during the procedure. The patient is intubated and nephrology consultation requested. PAST MEDICAL HISTORY: Positive for ESRD, diabetes mellitus, hypertension. The patient's other history at the time of this dictation, the patient has a history of AV graft in the past. ALLERGIES: NONE. FAMILY HISTORY: htn SOCIAL HISTORY: Per routine from patient. MEDICATIONS: The patient's current medications include cefepime, levophed, propofol, status post IV fluid. The patient is on DuoNeb, the patient is on insulin, the patient is on Protonix. REVIEW OF SYSTEMS: Cannot be obtained through examination, patient is intubated. Patient is unabale by herself. PHYSICAL EXAMINATION: VITAL SIGNS: Pulse 85, blood pressure 102/45. HEENT: Head is atraumatic, normocephalic. Pallor conjunctiva. NECK: Supple. LUNGS: Clear. HEART: S1, S2 normal. ABDOMEN: Soft, nontender. Bowel sounds present. EXTREMITIES: No cyanosis, clubbing, trace edema. NEUROLOGIC: The patient is intubated. LABORATORY DATA: Sodium 134, potassium 4.6, hematocrit 30.5. The patient's chest x-ray shows patient has failure. IMPRESSION: 1. Status post cardiopulmonary arrest. 2. Status post cholangiogram, no intervention. 3. End-stage renal disease. 4. Status post cath angiogram. 5. Diabetes mellitus. 6. Hypertension. 7. leak troponin. 8. Incomplete data base. 9. Hyponatremia. 10. Anemia. 11. Status post leukocytosis. PLAN: Continue current treatment, hemodialysis as needed, and blood pressure is stable. Patient will be followed along with you. Thank you, Dr. Jus Andrade, for kindly asking me to see this patient in nephrology consultation. Dictated By: Yunior Borden MD /luke/vance /Document#: [id number] MTDD
[2017-02-26] MEDS: BRIMONIDINE 0.15% 5 ML OPH BOTH EYES SCH ×2 (09:52→21:22)
[2017-02-26] MEDS: DORZOLAMIDE/TIMOLOL 10 ML OPH BOTH EYES SCH ×2 (09:53→21:22)
[2017-02-26 10:32] LABS: AADO2 Arterial 73.9 mmHg (7.0-24.0); Arterial Base Excess -4.8 mmol/L (-3.0-3); Arterial Fraction of Oxyhgb 94.1 % (93.0-99.0); Arterial HCO3 21.6 mmol/L (22.0-26.0); Arterial MetHb 0.2 % (0.0-1.5); Arterial Total Hemglobin 10.3 g/dl (12.0-18.0); Blood Gas PS 8; MODE VENT - CPAP
--- NOTE | 2017-02-26 11:16 | CONS ---
Date/Time of Note Date/Time of Note DATE: 02/26/17 TIME: 11:13 Assessment/Plan Assessment/Plan Chief Complaint/Hosp Course S/P ARREST DM S/P PEA PUL EDEMA LUNG INFILTERATE CAD ESRD S/P HD Recs HD today Labs in am Problems: Consultation Date/Type/Reason Admit Date/Time Feb 23, 2017 at 14:20 Initial Consult Date 02/23/17 Type of Consultation: RENAL Referring Provider: KELLIE JAMIL MD 24 HR Interval Summary Free Text/Dictation Opens eyes K 5.3 this am Exam/Review of Systems Vital Signs Vitals Vital Signs Date Time Temp Pulse Resp B/P Pulse Ox O2 Delivery O2 Flow Rate FiO2 02/26/17 10:56 56 26 98 30 02/26/17 09:00 126/45 Mechanical Ventilator 02/26/17 08:00 98.2 02/23/17 11:57 15.0 Intake and Output 02/25/17 02/25/17 02/26/17 15:00 23:00 07:00 Intake Total 585.48 ml 664.55 ml 350.87 ml Output Total 0 ml 160 ml Balance 585.48 ml 504.55 ml 350.87 ml Exam Constitutional: other (Opens eyes on stimulation ) Eyes: nl sclera Neck: supple Respiratory: diminished breath sounds Cardiovascular: regular rate and rhythm Gastrointestinal: bowel sounds Extremities: pitting pedal edema Additional Comments Access: left permacath in place Results Result Diagram: 02/26/17 0430 02/26/17 0430 Results 24 hrs Laboratory Tests Test 02/25/17 12:17 02/25/17 18:11 02/25/17 23:33 02/26/17 04:30 Bedside Glucose 154 143 181 White Blood Count 8.7 Red Blood Count 2.76 L Hemoglobin 8.8 L Hematocrit 27.8 L Mean Corpuscular Volume 100.7 Mean Corpuscular Hemoglobin 31.9 Mean Corpuscular Hemoglobin Concent 31.7 L Red Cell Distribution Width 14.4 Platelet Count 129 L Mean Platelet Volume 11.1 H Neutrophils % 88.2 H Lymphocytes % 6.1 L Monocytes % 5.2 Eosinophils % 0.0 Basophils % 0.0 Nucleated Red Blood Cells % 0.0 Neutrophils # 7.7 H Lymphocytes # 0.5 L Monocytes # 0.5 Eosinophils # 0.0 Basophils # 0.0 Nucleated Red Blood Cells # 0.0 Sodium Level 137 Potassium Level 5.3 H Chloride Level 96 L Carbon Dioxide Level 25 Anion Gap 21 H Blood Urea Nitrogen 40 #H Creatinine 4.63 #H Glucose Level 181 Calcium Level 8.7 Phosphorus Level 7.8 H Magnesium Level 2.1 Test 02/26/17 05:01 02/26/17 05:42 02/26/17 09:17 Blood Gas Specimen Source Blood arterial Blood arterial Arterial Blood Date Drawn 02/26/2017 4:56:52 AM 02/26/2017 10:00:45 AM Arterial Blood pH (Temp corrected) 7.321 L 7.292 *L Arterial Blood pCO2 (Temp correct) 46.8 H 45.7 H Arterial Blood pO2 (Temp corrected) 88.2 86.3 Arterial Blood HCO3 23.6 21.6 L Arterial Blood Base Excess -2.5 -4.8 L Arterial Blood Oxygen Saturation 95.3 95.2 Giovanny Test ACCEPTAB N/A Arterial Blood Gas Puncture Site Right Radial Right Brachial Arterial Blood Carboxyhemoglobin 0.7 1.0 Arterial Blood Methemoglobin 0.4 0.2 Blood Gas A-a O2 Differential 70.7 H 73.9 H Oxyhemoglobin Percent 94.3 94.1 Total Hemoglobin 9.4 L 10.3 L Blood Gas Temperature 37.0 37.0 Blood Gas Respiration Rate 16.0 Blood Gas Actual Respiration Rate 16 24 Blood Gas Modality VENT - AC VENT - CPAP FiO2 30.0 30.0 Blood Gas Tidal Volume 500.0 Blood Gas Low PEEP Setting 5.0 5.0 Blood Gas Inspiratory Pressure 27.0 Blood Gas Notified Whom RTR JLD Blood Gas Notified Time 02/26/2017 5:23:57 AM 02/26/2017 10:32:07 AM Bedside Glucose 195 Blood Gas Pressure Support 8 Blood Gas Critical Value Read Back Y NG RN Medications Medications Current Medications Cefepime HCl (Maxipime 1gm/50 ml (Pmx)) 50 ml @ 100 mls/hr Q24H IVPB Last administered on 02/25/17t 16:30; Admin Dose 100 MLS/HR; Start 02/23/17 at 16:36 Ondansetron HCl (Zofran Inj) 4 mg Q6H PRN IV NAUSEA AND/OR VOMITING; Start 02/23 at 15:30 Pantoprazole (Protonix Iv) 40 mg DAILY@06 IV Last administered on 02/26/17 05: 42; Admin Dose 40 MG; Start 02/24/17 at 06:00 Diagnostic Test (Pha) (Accu-Chek) 1 ea 02 XX ; Start 02/24/17 at 02:00 Insulin Aspart (Novolog Insulin Pen) NOVOLOG *MODERATE* ALGORITHM Q6 SC Last administered on 02/26/17 05:47; Admin Dose 1 UNIT; Start 02/23/17 at 18:00 Miscellaneous Information 1 ea NOTE XX ; Start 02/23/17 at 16:30 Glucose (Glutose) 15 gm Q15M PRN PO DECREASED GLUCOSE; Start 02/23/17 at 16:30 Glucose (Glutose) 22.5 gm Q15M PRN PO DECREASED GLUCOSE; Start 02/23/17 at 16:30 Dextrose (D50w Syringe) 25 ml Q15M PRN IV DECREASED GLUCOSE; Start 02/23/17 at 16:30 Dextrose (D50w Syringe) 50 ml Q15M PRN IV DECREASED GLUCOSE; Start 02/23/17 at 16:30 Glucagon (Glucagen) 1 mg Q15M PRN IM DECREASED GLUCOSE; Start 02/23/17 at 16:30 Glucose 15 gm 15 gm Q15M PRN BUCCAL DECREASED GLUCOSE; Start 02/23/17 at 16:30 Propofol 100 ml @ 2.07 mls/hr Q12H IV Last administered on 02/26/17 01:08; Admin Dose 12.42 MLS/HR; Start 02/23/17 at 18:30 Norepinephrine/ Dextrose (Levophed/D5W) 500 ml @ 0 mls/hr TITRATE IV Last administered on 02/24/17 08:55; Admin Dose 1.87 MLS/HR; Start 02/24/17 at 07:00 Methylprednisolone Sodium Succinate 40 mg 40 mg Q8 IV Last administered on 05:42; Admin Dose 40 MG; Start 02/25/17 at 14:00 Dexmedetomidine HCl/Sodium Chloride (Precedex/NS) 50 ml @ 3.45 mls/hr TITRATE IV Last administered on 02/26/17 04:28; Admin Dose 10.35 MLS/HR; Start 02/26/17 at 00:00; Stop 02/26/17 at 12:00 Latanoprost (Xalatan) 1 drop HS BOTH EYES Last administered on 02/25/17 20:46; Admin Dose 1 DROP; Start 02/25/17 at 21:00 Brimonidine Tartrate (Alphagan P 0.15%) 1 drop BID BOTH EYES Last administered on 02/26/17 09:52; Admin Dose 1 DROP; Start 02/25/17 at 21:00 Dorzolamide/ Timolol (Cosopt) 1 drop BID BOTH EYES Last administered on 09:53; Admin Dose 1 DROP; Start 02/25/17 at 21:00 CHETNA DACOSTA MD Feb 26, 2017 11:16
--- NOTE | 2017-02-26 11:55 | CONS ---
Date/Time of Note Date/Time of Note DATE: 02/26/17 TIME: 11:52 Consult Date/Type/Reason Admit Date/Time Feb 23, 2017 at 14:20 Initial Consult Date 02/23/17 Type of Consultation: Pulmonary Ordering Provider: KELLIE JAMIL MD Subjective Patient opens eyes and follows simple commands off sedation. Objective Vital Signs Date Time Temp Pulse Resp B/P Pulse Ox O2 Delivery O2 Flow Rate FiO2 02/26/17 10:56 56 26 98 30 02/26/17 09:00 126/45 Mechanical Ventilator 02/26/17 08:00 98.2 02/23/17 11:57 15.0 Intake and Output 02/25/17 02/25/17 02/26/17 14:59 22:59 06:59 Intake Total 577.55 ml 656.62 ml 397.08 ml Output Total 0 ml 160 ml Balance 577.55 ml 496.62 ml 397.08 ml Exam PHYSICAL EXAMINATION GENERAL: Elderly lady opens eyes appears comfortable at rest VITAL SIGNS: see below. HEENT: Pupils equal, round, and reactive to light. CARDIAC: S1, S2, 1/6 systolic ejection murmur CHEST: Diminished air entry bilaterally with rhonchi ABDOMEN: Mildly distended. Bowel sounds present no guarding or rebound EXTREMITIES: No cyanosis, clubbing edema +1 NEUROLOGIC: Generalized weakness Results/Medications Result Diagram: 02/26/17 0430 02/26/17 0430 Results 24 hrs Laboratory Tests Test 02/25/17 12:17 02/25/17 18:11 02/25/17 23:33 02/26/17 04:30 Bedside Glucose 154 143 181 White Blood Count 8.7 Red Blood Count 2.76 L Hemoglobin 8.8 L Hematocrit 27.8 L Mean Corpuscular Volume 100.7 Mean Corpuscular Hemoglobin 31.9 Mean Corpuscular Hemoglobin Concent 31.7 L Red Cell Distribution Width 14.4 Platelet Count 129 L Mean Platelet Volume 11.1 H Neutrophils % 88.2 H Lymphocytes % 6.1 L Monocytes % 5.2 Eosinophils % 0.0 Basophils % 0.0 Nucleated Red Blood Cells % 0.0 Neutrophils # 7.7 H Lymphocytes # 0.5 L Monocytes # 0.5 Eosinophils # 0.0 Basophils # 0.0 Nucleated Red Blood Cells # 0.0 Sodium Level 137 Potassium Level 5.3 H Chloride Level 96 L Carbon Dioxide Level 25 Anion Gap 21 H Blood Urea Nitrogen 40 #H Creatinine 4.63 #H Glucose Level 181 Calcium Level 8.7 Phosphorus Level 7.8 H Magnesium Level 2.1 Test 02/26/17 05:01 02/26/17 05:42 02/26/17 09:17 Blood Gas Specimen Source Blood arterial Blood arterial Arterial Blood Date Drawn 02/26/2017 4:56:52 AM 02/26/2017 10:00:45 AM Arterial Blood pH (Temp corrected) 7.321 L 7.292 *L Arterial Blood pCO2 (Temp correct) 46.8 H 45.7 H Arterial Blood pO2 (Temp corrected) 88.2 86.3 Arterial Blood HCO3 23.6 21.6 L Arterial Blood Base Excess -2.5 -4.8 L Arterial Blood Oxygen Saturation 95.3 95.2 Giovanny Test ACCEPTAB N/A Arterial Blood Gas Puncture Site Right Radial Right Brachial Arterial Blood Carboxyhemoglobin 0.7 1.0 Arterial Blood Methemoglobin 0.4 0.2 Blood Gas A-a O2 Differential 70.7 H 73.9 H Oxyhemoglobin Percent 94.3 94.1 Total Hemoglobin 9.4 L 10.3 L Blood Gas Temperature 37.0 37.0 Blood Gas Respiration Rate 16.0 Blood Gas Actual Respiration Rate 16 24 Blood Gas Modality VENT - AC VENT - CPAP FiO2 30.0 30.0 Blood Gas Tidal Volume 500.0 Blood Gas Low PEEP Setting 5.0 5.0 Blood Gas Inspiratory Pressure 27.0 Blood Gas Notified Whom RTR JLD Blood Gas Notified Time 02/26/2017 5:23:57 AM 02/26/2017 10:32:07 AM Bedside Glucose 195 Blood Gas Pressure Support 8 Blood Gas Critical Value Read Back Y NG RN Medications Current Medications Cefepime HCl (Maxipime 1gm/50 ml (Pmx)) 50 ml @ 100 mls/hr Q24H IVPB Last administered on 02/25/17 16:30; Admin Dose 100 MLS/HR; Start 02/23/17 at 16:36 Ondansetron HCl (Zofran Inj) 4 mg Q6H PRN IV NAUSEA AND/OR VOMITING; Start 02/23 at 15:30 Pantoprazole (Protonix Iv) 40 mg DAILY@06 IV Last administered on 02/26/17 05: 42; Admin Dose 40 MG; Start 02/24/17 at 06:00 Diagnostic Test (Pha) (Accu-Chek) 1 ea 02 XX ; Start 02/24/17 at 02:00 Insulin Aspart (Novolog Insulin Pen) NOVOLOG *MODERATE* ALGORITHM Q6 SC Last administered on 02/26/17 05:47; Admin Dose 1 UNIT; Start 02/23/17 at 18:00 Miscellaneous Information 1 ea NOTE XX ; Start 02/23/17 at 16:30 Glucose (Glutose) 15 gm Q15M PRN PO DECREASED GLUCOSE; Start 02/23/17 at 16:30 Glucose (Glutose) 22.5 gm Q15M PRN PO DECREASED GLUCOSE; Start 02/23/17 at 16:30 Dextrose (D50w Syringe) 25 ml Q15M PRN IV DECREASED GLUCOSE; Start 02/23/17 at 16:30 Dextrose (D50w Syringe) 50 ml Q15M PRN IV DECREASED GLUCOSE; Start 02/23/17 at 16:30 Glucagon (Glucagen) 1 mg Q15M PRN IM DECREASED GLUCOSE; Start 02/23/17 at 16:30 Glucose 15 gm 15 gm Q15M PRN BUCCAL DECREASED GLUCOSE; Start 02/23/17 at 16:30 Propofol 100 ml @ 2.07 mls/hr Q12H IV Last administered on 02/26/17 01:08; Admin Dose 12.42 MLS/HR; Start 02/23/17 at 18:30 Norepinephrine/ Dextrose (Levophed/D5W) 500 ml @ 0 mls/hr TITRATE IV Last administered on 02/24/17 08:55; Admin Dose 1.87 MLS/HR; Start 02/24/17 at 07:00 Methylprednisolone Sodium Succinate 40 mg 40 mg Q8 IV Last administered on 05:42; Admin Dose 40 MG; Start 02/25/17 at 14:00 Dexmedetomidine HCl/Sodium Chloride (Precedex/NS) 50 ml @ 3.45 mls/hr TITRATE IV Last administered on 02/26/17 04:28; Admin Dose 10.35 MLS/HR; Start 02/26/17 at 00:00; Stop 02/26/17 at 12:00 Latanoprost (Xalatan) 1 drop HS BOTH EYES Last administered on 8/6/17at 20:46; Admin Dose 1 DROP; Start 02/25/17 at 21:00 Brimonidine Tartrate (Alphagan P 0.15%) 1 drop BID BOTH EYES Last administered on 02/26/17 09:52; Admin Dose 1 DROP; Start 02/25/17 at 21:00 Dorzolamide/ Timolol (Cosopt) 1 drop BID BOTH EYES Last administered on 09:53; Admin Dose 1 DROP; Start 02/25/17 at 21:00 Assessment/Plan Chief Complaint/Hosp Course IMP: 1. Hypoxemic Respiratory Failure 2. s/p PEA arrest--etiology not entirely clear 3. ESRD on HD 4. Advanced ILD--consistent with chronic HP 5. Anemia RECS: 1. Continue Precedex 2. Failed CPAP weaning trial this morning with evidence respiratory acidosis. We will placed back on AC ventilation and attempt weaning tomorrow. 3. Abx 4. HD in am 5. Minimize narcotics Family requesting goals of care meeting. Scheduled for tomorrow. 35 min cc time Problems: GURU RANDOLPH MD, [facility] Feb 26, 2017 11:55
[2017-02-26] MEDS: CEFEPIME 1GM/50 ML (PMX) 50 ML IVPB SCH (17:47)
--- NOTE | 2017-02-26 18:05 | CONS ---
Date/Time of Note Date/Time of Note DATE: 02/26/17 TIME: 18:04 Consult Date/Type/Reason Admit Date/Time Feb 23, 2017 at 14:20 Initial Consult Date 02/23/17 Type of Consultation: CARDIOLOGY Ordering Provider: BRYAN FELDER MD Subjective CARDIOLOGY FOLLOW UP NOTE/ Critical care tessie: d/w staff and physicians. d/w family including son rhythm was reviewed. pt remains in NSR. pt remains intubated on vent but BP is better and is off of levophed drip. nonverbal pt is able to move and follows basic command per RN, OBJECTIVE: General obese female started with intubation on the vent. HEENT: NC/AT. NECK: NO JVD. no stridor. CV: RRR. systolic murmur; no gallop or rubs. PULM: no wheezing or rhonchi anteriorly. GI: SOFT, NT, ND, no rebound or guarding Extremity: trace B/L LE edema. no clubbing. Vascular: R fem venous in place. no hematoma or bleeding neuro: sedated. Psych: gets intermittently agitated. rectal: deferred : normal echo personally reviewed: 1. Hyperdynamic left ventricular systolic function. Normal left ventricular cavity size. Mild concentric left ventricular hypertrophy. Ejection fraction is visually estimated at 70 %. Tissue Doppler/Mitral Doppler indices are consistent with impaired relaxation (Stage I diastolic dysfunction). 2. Normal right ventricular systolic function. Mild enlargement of right ventricle. 3. Mild mitral leaflet calcification. Mild mitral annular calcification. Trace mitral regurgitation. 4. Aortic sclerosis without stenosis. Trileaflet aortic valve. Moderate to severe aortic valve regurgitation. The regurgitation jet is eccentrically directed. 5. Normal appearance of the tricuspid valve. Estimated peak PA systolic pressure 62 mmHg. There is mild tricuspid regurgitation. 6. Normal IVC with respiratory collapse, however patient on ventilator. Objective Vital Signs Date Time Temp Pulse Resp B/P Pulse Ox O2 Delivery O2 Flow Rate FiO2 02/26/17 17:30 73 21 98 30 02/26/17 16:45 115/48 Mechanical Ventilator 02/26/17 15:30 98.6 02/23/17 11:57 15.0 Intake and Output 02/25/17 02/25/17 02/26/17 15:00 23:00 07:00 Intake Total 585.48 ml 664.55 ml 350.87 ml Output Total 0 ml 160 ml Balance 585.48 ml 504.55 ml 350.87 ml Results/Medications Result Diagram: 02/26/17 0430 02/26/17 0430 Results 24 hrs Laboratory Tests Test 02/25/17 18:11 02/25/17 23:33 02/26/17 04:30 02/26/17 05:01 Bedside Glucose 143 181 White Blood Count 8.7 Red Blood Count 2.76 L Hemoglobin 8.8 L Hematocrit 27.8 L Mean Corpuscular Volume 100.7 Mean Corpuscular Hemoglobin 31.9 Mean Corpuscular Hemoglobin Concent 31.7 L Red Cell Distribution Width 14.4 Platelet Count 129 L Mean Platelet Volume 11.1 H Neutrophils % 88.2 H Lymphocytes % 6.1 L Monocytes % 5.2 Eosinophils % 0.0 Basophils % 0.0 Nucleated Red Blood Cells % 0.0 Neutrophils # 7.7 H Lymphocytes # 0.5 L Monocytes # 0.5 Eosinophils # 0.0 Basophils # 0.0 Nucleated Red Blood Cells # 0.0 Sodium Level 137 Potassium Level 5.3 H Chloride Level 96 L Carbon Dioxide Level 25 Anion Gap 21 H Blood Urea Nitrogen 40 #H Creatinine 4.63 #H Glucose Level 181 Calcium Level 8.7 Phosphorus Level 7.8 H Magnesium Level 2.1 Blood Gas Specimen Source Blood arterial Arterial Blood Date Drawn 02/26/2017 4:56:52 AM Arterial Blood pH (Temp corrected) 7.321 L Arterial Blood pCO2 (Temp correct) 46.8 H Arterial Blood pO2 (Temp corrected) 88.2 Arterial Blood HCO3 23.6 Arterial Blood Base Excess -2.5 Arterial Blood Oxygen Saturation 95.3 Giovanny Test ACCEPTAB Arterial Blood Gas Puncture Site Right Radial Arterial Blood Carboxyhemoglobin 0.7 Arterial Blood Methemoglobin 0.4 Blood Gas A-a O2 Differential 70.7 H Oxyhemoglobin Percent 94.3 Total Hemoglobin 9.4 L Blood Gas Temperature 37.0 Blood Gas Respiration Rate 16.0 Blood Gas Actual Respiration Rate 16 Blood Gas Modality VENT - AC FiO2 30.0 Blood Gas Tidal Volume 500.0 Blood Gas Low PEEP Setting 5.0 Blood Gas Inspiratory Pressure 27.0 Blood Gas Notified Whom RTR Blood Gas Notified Time 02/26/2017 5:23:57 AM Test 02/26/17 05:42 02/26/17 09:17 02/26/17 12:09 Bedside Glucose 195 203 Blood Gas Specimen Source Blood arterial Arterial Blood Date Drawn 02/26/2017 10:00:45 AM Arterial Blood pH (Temp corrected) 7.292 *L Arterial Blood pCO2 (Temp correct) 45.7 H Arterial Blood pO2 (Temp corrected) 86.3 Arterial Blood HCO3 21.6 L Arterial Blood Base Excess -4.8 L Arterial Blood Oxygen Saturation 95.2 Giovanny Test N/A Arterial Blood Gas Puncture Site Right Brachial Arterial Blood Carboxyhemoglobin 1.0 Arterial Blood Methemoglobin 0.2 Blood Gas A-a O2 Differential 73.9 H Oxyhemoglobin Percent 94.1 Total Hemoglobin 10.3 L Blood Gas Temperature 37.0 Blood Gas Actual Respiration Rate 24 Blood Gas Modality VENT - CPAP FiO2 30.0 Blood Gas Low PEEP Setting 5.0 Blood Gas Pressure Support 8 Blood Gas Critical Value Read Back Y HERNANDEZ RN Blood Gas Notified Whom JLD Blood Gas Notified Time 02/26/2017 10:32:07 AM Medications Current Medications Cefepime HCl (Maxipime 1gm/50 ml (Pmx)) 50 ml @ 100 mls/hr Q24H IVPB Last administered on 02/26/17 17:47; Admin Dose 100 MLS/HR; Start 02/23/17 at 16:36 Ondansetron HCl (Zofran Inj) 4 mg Q6H PRN IV NAUSEA AND/OR VOMITING; Start 02/23 at 15:30 Pantoprazole (Protonix Iv) 40 mg DAILY@06 IV Last administered on 02/26/17 05: 42; Admin Dose 40 MG; Start 02/24/17 at 06:00 Diagnostic Test (Pha) (Accu-Chek) 1 ea 02 XX ; Start 02/24/17 at 02:00 Insulin Aspart (Novolog Insulin Pen) NOVOLOG *MODERATE* ALGORITHM Q6 SC Last administered on 02/26/17 12:12; Admin Dose 4 UNIT; Start 02/23/17 at 18:00 Miscellaneous Information 1 ea NOTE XX ; Start 02/23/17 at 16:30 Glucose (Glutose) 15 gm Q15M PRN PO DECREASED GLUCOSE; Start 02/23/17 at 16:30 Glucose (Glutose) 22.5 gm Q15M PRN PO DECREASED GLUCOSE; Start 02/23/17 at 16:30 Dextrose (D50w Syringe) 25 ml Q15M PRN IV DECREASED GLUCOSE; Start 02/23/17 at 16:30 Dextrose (D50w Syringe) 50 ml Q15M PRN IV DECREASED GLUCOSE; Start 02/23/17 at 16:30 Glucagon (Glucagen) 1 mg Q15M PRN IM DECREASED GLUCOSE; Start 02/23/17 at 16:30 Glucose 15 gm 15 gm Q15M PRN BUCCAL DECREASED GLUCOSE; Start 02/23/17 at 16:30 Propofol 100 ml @ 2.07 mls/hr Q12H IV Last administered on 02/26/17 14:42; Admin Dose 4.14 MLS/HR; Start 02/23/17 at 18:30 Norepinephrine/ Dextrose (Levophed/D5W) 500 ml @ 0 mls/hr TITRATE IV Last administered on 02/24/17 08:55; Admin Dose 1.87 MLS/HR; Start 02/24/17 at 07:00 Methylprednisolone Sodium Succinate (Solu-Medrol) 40 mg Q8 IV Last administered on 02/26/17 14:41; Admin Dose 40 MG; Start 02/25/17 at 14:00 Latanoprost (Xalatan) 1 drop HS BOTH EYES Last administered on 02/25/17 20:46; Admin Dose 1 DROP; Start 02/25/17 at 21:00 Brimonidine Tartrate (Alphagan P 0.15%) 1 drop BID BOTH EYES Last administered on 02/26/17 09:52; Admin Dose 1 DROP; Start 02/25/17 at 21:00 Dorzolamide/ Timolol (Cosopt) 1 drop BID BOTH EYES Last administered on 09:53; Admin Dose 1 DROP; Start 02/25/17 at 21:00 Assessment/Plan Chief Complaint/Hosp Course 1. Cardiopulmonary arrest 2. Shock probably septic shock, pneumonia 3. transient ST elevation on EKG patient is well with no significant flow- limiting obstruction on the coronary angiogram 4. Renal failure on dialysis 5. History of hypertension now hypotensive in shock 6. Diabetes 7. History of dyslipidemia 8. Hypoxemic respiratory failure currently intubated on the vent 9. Diarrhea 10. AI: mod/ severe: etiology unclear. no evidence of aortic dissection on CT chest. r/o endocarditis/ bacteremia. Recommendations:. off the Levophed now. hemodialysis per renal consult. Diabetic management as per internal medicine. Antibiotic management as per internal medicine. Continue the vent support for now and try weaning tomorrow if stable. (defer to pulm team. ). . cont ICU care and vent support More than 36 minutes of critical care time was reminded to increase patient excluding any procedures Thank you for his referral. I will continue to follow along with you. MALCOLM SANCHEZ MD [facility] Problems: MALCOLM SANCHEZ MD Feb 26, 2017 18:05
--- NOTE | 2017-02-26 18:54 | PN ---
Date/Time of Note Date/Time of Note DATE: 02/26/17 TIME: 18:51 Assessment/Plan VTE Prophylaxis VTE Prophylaxis Intervention: heparin Lines/Catheters IV Catheter Type (from Nrsg): Central Line Central line still needed: Yes Urinary Cath still in place: No Assessment/Plan Chief Complaint/Hosp Course 76 yo female with ESRD on HD s/p cardiac arrest and with septic shock - Wean sedation and try to extubate tomorrow - Continue HD per renal - TTE with good LV function - Continue broad spectrum abx for VAP Problems: Subjective 24 Hr Interval Summary Free Text/Dictation Remains intubated Failed SBT Underwent HD today Alert and responsive to commands Pressor ggt is now off Exam/Review of Systems Vital Signs Vitals Vital Signs Date Time Temp Pulse Resp B/P Pulse Ox O2 Delivery O2 Flow Rate FiO2 02/26/17 17:30 73 21 98 30 02/26/17 16:45 115/48 Mechanical Ventilator 02/26/17 15:30 98.6 02/23/17 11:57 15.0 Intake and Output 02/25/17 02/25/17 02/26/17 15:00 23:00 07:00 Intake Total 585.48 ml 664.55 ml 350.87 ml Output Total 0 ml 160 ml Balance 585.48 ml 504.55 ml 350.87 ml Exam Alert, responsive to commands Moves x 4 Clear lungs Regular heart sounds Results Result Diagram: 02/26/17 0430 02/26/17 0430 Results 24 hrs Laboratory Tests Test 02/25/17 23:33 02/26/17 04:30 02/26/17 05:01 02/26/17 05:42 Bedside Glucose 181 195 White Blood Count 8.7 Red Blood Count 2.76 L Hemoglobin 8.8 L Hematocrit 27.8 L Mean Corpuscular Volume 100.7 Mean Corpuscular Hemoglobin 31.9 Mean Corpuscular Hemoglobin Concent 31.7 L Red Cell Distribution Width 14.4 Platelet Count 129 L Mean Platelet Volume 11.1 H Neutrophils % 88.2 H Lymphocytes % 6.1 L Monocytes % 5.2 Eosinophils % 0.0 Basophils % 0.0 Nucleated Red Blood Cells % 0.0 Neutrophils # 7.7 H Lymphocytes # 0.5 L Monocytes # 0.5 Eosinophils # 0.0 Basophils # 0.0 Nucleated Red Blood Cells # 0.0 Sodium Level 137 Potassium Level 5.3 H Chloride Level 96 L Carbon Dioxide Level 25 Anion Gap 21 H Blood Urea Nitrogen 40 #H Creatinine 4.63 #H Glucose Level 181 Calcium Level 8.7 Phosphorus Level 7.8 H Magnesium Level 2.1 Blood Gas Specimen Source Blood arterial Arterial Blood Date Drawn 02/26/2017 4:56:52 AM Arterial Blood pH (Temp corrected) 7.321 L Arterial Blood pCO2 (Temp correct) 46.8 H Arterial Blood pO2 (Temp corrected) 88.2 Arterial Blood HCO3 23.6 Arterial Blood Base Excess -2.5 Arterial Blood Oxygen Saturation 95.3 Giovanny Test ACCEPTAB Arterial Blood Gas Puncture Site Right Radial Arterial Blood Carboxyhemoglobin 0.7 Arterial Blood Methemoglobin 0.4 Blood Gas A-a O2 Differential 70.7 H Oxyhemoglobin Percent 94.3 Total Hemoglobin 9.4 L Blood Gas Temperature 37.0 Blood Gas Respiration Rate 16.0 Blood Gas Actual Respiration Rate 16 Blood Gas Modality VENT - AC FiO2 30.0 Blood Gas Tidal Volume 500.0 Blood Gas Low PEEP Setting 5.0 Blood Gas Inspiratory Pressure 27.0 Blood Gas Notified Whom RTR Blood Gas Notified Time 02/26/2017 5:23:57 AM Test 02/26/17 09:17 02/26/17 12:09 02/26/17 18:14 Blood Gas Specimen Source Blood arterial Arterial Blood Date Drawn 02/26/2017 10:00:45 AM Arterial Blood pH (Temp corrected) 7.292 *L Arterial Blood pCO2 (Temp correct) 45.7 H Arterial Blood pO2 (Temp corrected) 86.3 Arterial Blood HCO3 21.6 L Arterial Blood Base Excess -4.8 L Arterial Blood Oxygen Saturation 95.2 Giovanny Test N/A Arterial Blood Gas Puncture Site Right Brachial Arterial Blood Carboxyhemoglobin 1.0 Arterial Blood Methemoglobin 0.2 Blood Gas A-a O2 Differential 73.9 H Oxyhemoglobin Percent 94.1 Total Hemoglobin 10.3 L Blood Gas Temperature 37.0 Blood Gas Actual Respiration Rate 24 Blood Gas Modality VENT - CPAP FiO2 30.0 Blood Gas Low PEEP Setting 5.0 Blood Gas Pressure Support 8 Blood Gas Critical Value Read Back Y HERNANDEZ RN Blood Gas Notified Whom JLD Blood Gas Notified Time 02/26/2017 10:32:07 AM Bedside Glucose 203 175 Medications Medications Current Medications Cefepime HCl (Maxipime 1gm/50 ml (Pmx)) 50 ml @ 100 mls/hr Q24H IVPB Last administered on 02/26/17 17:47; Admin Dose 100 MLS/HR; Start 02/23/17 at 16:36 Ondansetron HCl (Zofran Inj) 4 mg Q6H PRN IV NAUSEA AND/OR VOMITING; Start 02/23 at 15:30 Pantoprazole (Protonix Iv) 40 mg DAILY@06 IV Last administered on 02/26/17 05: 42; Admin Dose 40 MG; Start 02/24/17 at 06:00 Diagnostic Test (Pha) (Accu-Chek) 1 ea 02 XX ; Start 02/24/17 at 02:00 Insulin Aspart (Novolog Insulin Pen) NOVOLOG *MODERATE* ALGORITHM Q6 SC Last administered on 02/26/17 18:22; Admin Dose 2 UNIT; Start 02/23/17 at 18:00 Miscellaneous Information 1 ea NOTE XX ; Start 02/23/17 at 16:30 Glucose (Glutose) 15 gm Q15M PRN PO DECREASED GLUCOSE; Start 02/23/17 at 16:30 Glucose (Glutose) 22.5 gm Q15M PRN PO DECREASED GLUCOSE; Start 02/23/17 at 16:30 Dextrose (D50w Syringe) 25 ml Q15M PRN IV DECREASED GLUCOSE; Start 02/23/17 at 16:30 Dextrose (D50w Syringe) 50 ml Q15M PRN IV DECREASED GLUCOSE; Start 02/23/17 at 16:30 Glucagon (Glucagen) 1 mg Q15M PRN IM DECREASED GLUCOSE; Start 02/23/17 at 16:30 Glucose 15 gm 15 gm Q15M PRN BUCCAL DECREASED GLUCOSE; Start 02/23/17 at 16:30 Propofol 100 ml @ 2.07 mls/hr Q12H IV Last administered on 02/26/17 14:42; Admin Dose 4.14 MLS/HR; Start 02/23/17 at 18:30 Norepinephrine/ Dextrose (Levophed/D5W) 500 ml @ 0 mls/hr TITRATE IV Last administered on 02/24/17 08:55; Admin Dose 1.87 MLS/HR; Start 02/24/17 at 07:00 Methylprednisolone Sodium Succinate (Solu-Medrol) 40 mg Q8 IV Last administered on 02/26/17 14:41; Admin Dose 40 MG; Start 02/25/17 at 14:00 Latanoprost (Xalatan) 1 drop HS BOTH EYES Last administered on 02/25/17 20:46; Admin Dose 1 DROP; Start 02/25/17 at 21:00 Brimonidine Tartrate (Alphagan P 0.15%) 1 drop BID BOTH EYES Last administered on 02/26/17 09:52; Admin Dose 1 DROP; Start 02/25/17 at 21:00 Dorzolamide/ Timolol (Cosopt) 1 drop BID BOTH EYES Last administered on 09:53; Admin Dose 1 DROP; Start 02/25/17 at 21:00 SALEEM FUENTES MD Feb 26, 2017 18:54
[2017-02-26] MEDS: LATANOPROST 0.005% 2.5 ML OPH BOTH EYES SCH (21:22)
[2017-02-27] VITALS (40 sets, daily range): BP systolic 65–160; BP diastolic 31–68; PULSE 61–126; RESP 15–32
[2017-02-27] MEDS: ACCU-CHEK XX SCH ×2 (00:56→23:18)
[2017-02-27] MEDS: INSULIN ASPART [NOVOLOG] 3 ML PEN SC SCH ×5 (00:56→23:08)
[2017-02-27] MEDS: PROPOFOL 100 ML IV SCH ×3 (01:01→23:01)
[2017-02-27] MEDS: ALBUTEROL 18 GM INHALER INH SCH ×4 (01:40→21:51)
[2017-02-27] MEDS: IPRATROPIUM (HFA) 12.9 GM INHALER INH SCH ×4 (01:41→21:51)
[2017-02-27] MEDS: METHYLPREDNISOLONE 40 MG INJ IV SCH ×3 (05:37→20:42)
[2017-02-27] MEDS: PANTOPRAZOLE 40 MG INJ IV SCH (05:37)
[2017-02-27 06:34] LABS: ABNORMAL IP MESSAGE 1; BASOPHILS % 0.1 % (0.0-2.0); HEMATOCRIT 29.4 % (37.0-47.0); HEMOGLOBIN 9.4 g/dl (12.0-16.0); LYMPHOCYTES # 0.5 10^3/ul (0.8-2.9); MEAN CORPUSCULAR HEMOGLOBIN 32.6 pg (29.0-33.0); MEAN CORPUSCULAR VOLUME 102.1 fl (82.0-101.0); MEAN PLATELET VOLUME 11.3 fl (7.4-10.4); MONOCYTE # 1.1 10^3/ul (0.3-0.9); MONOCYTES % 7.8 % (0.0-11.0); NEUTROPHIL # 11.8 10^3/ul (1.6-7.5); NEUTROPHILS % 87.7 % (39.0-77.0); PLATELET COUNT 149 10^3/UL (140-415); RED BLOOD COUNT 2.88 10^6/ul (4.20-5.40); RED CELL DISTRIBUTION WIDTH 14.3 % (11.5-14.5); WHITE BLOOD COUNT 13.4 10^3/ul (4.8-10.8)
[2017-02-27 07:08] LABS: CALCIUM 8.9 mg/dl (8.4-10.2); MAGNESIUM 2.2 mg/dl (1.7-2.5); PHOSPHORUS 4.9 mg/dl (2.5-4.9); POTASSIUM 3.6 mmol/L (3.5-5.1)
[2017-02-27 07:17] LABS: POSITIVE DIFF @See below
[2017-02-27 07:25] LABS: CREATININE 3.74 mg/dl (0.44-1.00)
--- NOTE | 2017-02-27 08:35 | RADRPT ---
PROCEDURE: XR Chest. CLINICAL INDICATION: Respiratory failure TECHNIQUE: An AP view of the chest was obtained. COMPARISON: Chest x-ray dated 02/26/2017 FINDINGS: The endotracheal tube tip is approximately 3.5 cm above the young. The tip of the enteric tube pr ojects over the left upper quadrant. There is a left chest Perma-Cath with tip in the mid SVC. There are diffuse coarse prominent interstitial markings. No pleural effusion or pneumothorax is s een. The cardiomediastinal silhouette is mildly enlarged . Calcifications are seen within the aort ic arch. The osseous structures demonstrate senescent changes. IMPRESSION: 1. Chronic-appearing interstitial changes with superimposed interstitial edema versus pneumonia, mi ldly improved when compared to the prior examination. 2. Mild cardiomegaly and aortic atherosclerosis. 3. Tubes and lines, as described above. RPTAT: HH .Tiffany Mcdonald MD, MD Date Time Electronically viewed and signed by .Tiffany Mcdonald MD, on 02/27/2017 08:35 .G/
[2017-02-27] MEDS: DORZOLAMIDE/TIMOLOL 10 ML OPH BOTH EYES SCH ×2 (09:31→20:42)
[2017-02-27] MEDS: BRIMONIDINE 0.15% 5 ML OPH BOTH EYES SCH ×2 (09:31→20:41)
--- NOTE | 2017-02-27 09:36 | CONS ---
Date/Time of Note Date/Time of Note DATE: 02/27/17 TIME: 09:35 Assessment/Plan Assessment/Plan Chief Complaint/Hosp Course S/P ARREST DM S/P PEA PUL EDEMA LUNG INFILTERATE CAD ESRD S/P HD Recs HD tmw Labs in am Problems: Consultation Date/Type/Reason Admit Date/Time Feb 23, 2017 at 14:20 Initial Consult Date 02/23/17 Type of Consultation: CARDIOLOGY Referring Provider: BRYAN FELDER MD 24 HR Interval Summary Free Text/Dictation Pt much more awake Follows commands S/P HD yesterday Exam/Review of Systems Vital Signs Vitals Vital Signs Date Time Temp Pulse Resp B/P Pulse Ox O2 Delivery O2 Flow Rate FiO2 02/27/17 08:00 98.4 69 21 138/44 100 Mechanical Ventilator 02/27/17 05:18 30 02/23/17 11:57 15.0 Intake and Output 02/26/17 02/26/17 02/27/17 15:00 23:00 07:00 Intake Total 678.95 ml 404.84 ml 445.54 ml Output Total 3000 ml 0 ml 0 ml Balance -2321.05 ml 404.84 ml 445.54 ml Exam Constitutional: other (Opens eyes on stimulation ) Eyes: nl sclera Neck: supple Respiratory: diminished breath sounds Cardiovascular: regular rate and rhythm Gastrointestinal: bowel sounds Extremities: pitting pedal edema Additional Comments Access: left permacath in place Constitutional: No distress, No frail, No non-verbal, No obese, No other Psych: nl mood/affect, no complaints Head: atraumatic, normocephalic Eyes: EOMI, PERRL, nl conjunctiva, nl lids, nl sclera ENMT: nl external ears & nose, nl lips & teeth, nl nasal mucosa & septum Neck: non-tender, supple Respiratory: clear to auscultation, normal air movement Cardiovascular: nl pulses, regular rate and rhythm Gastrointestinal: nl liver, spleen, non-tender, soft Musculoskeletal: nl extremities to inspection, nl gait and stance Extremities: normal pulses Neurological: RECORDS SECTION SUPERVISOR II-XII intact, nl mental status, nl speech, nl strength Skin: nl turgor, No rash or lesions Lymph: nl lymph nodes Results Result Diagram: 02/27/17 0530 02/27/1730 Results 24 hrs Laboratory Tests Test 02/26/17 12:09 02/26/17 18:14 02/27/17 00:53 02/27/17 05:28 Bedside Glucose 203 175 184 151 Test 02/27/17 05:30 White Blood Count 13.4 #H Red Blood Count 2.88 L Hemoglobin 9.4 L Hematocrit 29.4 L Mean Corpuscular Volume 102.1 H Mean Corpuscular Hemoglobin 32.6 Mean Corpuscular Hemoglobin Concent 32.0 Red Cell Distribution Width 14.3 Platelet Count 149 Mean Platelet Volume 11.3 H Neutrophils % 87.7 H Lymphocytes % 4.0 L Monocytes % 7.8 Eosinophils % 0.0 Basophils % 0.1 Nucleated Red Blood Cells % 0.0 Neutrophils # 11.8 H Lymphocytes # 0.5 L Monocytes # 1.1 H Eosinophils # 0.0 Basophils # 0.0 Nucleated Red Blood Cells # 0.0 Sodium Level 144 Potassium Level 3.6 Chloride Level 101 Carbon Dioxide Level 28 Anion Gap 19 H Blood Urea Nitrogen 39 H Creatinine 3.74 H Glucose Level 146 Calcium Level 8.9 Phosphorus Level 4.9 # Magnesium Level 2.2 Medications Medications Current Medications Cefepime HCl (Maxipime 1gm/50 ml (Pmx)) 50 ml @ 100 mls/hr Q24H IVPB Last administered on 02/26/17 17:47; Admin Dose 100 MLS/HR; Start 02/23/17 at 16:36 Ondansetron HCl (Zofran Inj) 4 mg Q6H PRN IV NAUSEA AND/OR VOMITING; Start 02/23 at 15:30 Pantoprazole (Protonix Iv) 40 mg DAILY@06 IV Last administered on 02/27/17 05: 37; Admin Dose 40 MG; Start 02/24/17 at 06:00 Diagnostic Test (Pha) (Accu-Chek) 1 ea 02 XX Last administered on 02/27/17 00: 56; Admin Dose 1 EA; Start 02/24/17 at 02:00 Insulin Aspart (Novolog Insulin Pen) NOVOLOG *MODERATE* ALGORITHM Q6 SC Last administered on 02/27/17 05:38; Admin Dose 2 UNIT; Start 02/23/17 at 18:00 Miscellaneous Information 1 ea NOTE XX ; Start 02/23/17 at 16:30 Glucose (Glutose) 15 gm Q15M PRN PO DECREASED GLUCOSE; Start 02/23/17 at 16:30 Glucose (Glutose) 22.5 gm Q15M PRN PO DECREASED GLUCOSE; Start 02/23/17 at 16:30 Dextrose (D50w Syringe) 25 ml Q15M PRN IV DECREASED GLUCOSE; Start 02/23/17 at 16:30 Dextrose (D50w Syringe) 50 ml Q15M PRN IV DECREASED GLUCOSE; Start 02/23/17 at 16:30 Glucagon (Glucagen) 1 mg Q15M PRN IM DECREASED GLUCOSE; Start 02/23/17 at 16:30 Glucose 15 gm 15 gm Q15M PRN BUCCAL DECREASED GLUCOSE; Start 02/23/17 at 16:30 Propofol 100 ml @ 2.07 mls/hr Q12H IV Last administered on 02/27/17 01:01; Admin Dose 6.21 MLS/HR; Start 02/23/17 at 18:30 Norepinephrine/ Dextrose (Levophed/D5W) 500 ml @ 0 mls/hr TITRATE IV Last administered on 02/24/17 08:55; Admin Dose 1.87 MLS/HR; Start 02/24/17 at 07:00 Methylprednisolone Sodium Succinate (Solu-Medrol) 40 mg Q8 IV Last administered on 02/27/17 05:37; Admin Dose 40 MG; Start 02/25/17 at 14:00 Latanoprost (Xalatan) 1 drop HS BOTH EYES Last administered on 02/26/17 21:22; Admin Dose 1 DROP; Start 02/25/17 at 21:00 Brimonidine Tartrate (Alphagan P 0.15%) 1 drop BID BOTH EYES Last administered on 02/27/17 09:31; Admin Dose 1 DROP; Start 02/25/17 at 21:00 Dorzolamide/ Timolol (Cosopt) 1 drop BID BOTH EYES Last administered on 09:31; Admin Dose 1 DROP; Start 02/25/17 at 21:00 CHETNA DACOSTA MD Feb 27, 2017 09:36
[2017-02-27 10:18] LABS: AADO2 Arterial 79.9 mmHg (7.0-24.0); Allen Test ACCEPTAB; Arterial Base Excess -0.1 mmol/L (-3.0-3); Arterial COHb 0.2 % (0.0-3.0); Arterial Fraction of Oxyhgb 93.2 % (93.0-99.0); Arterial HCO3 26.3 mmol/L (22.0-26.0); Arterial MetHb 0.4 % (0.0-1.5); Arterial Total Hemglobin 10.7 g/dl (12.0-18.0); Blood Gas PS 10; MODE VENT - CPAP
--- NOTE | 2017-02-27 11:13 | CONS ---
Date/Time of Note Date/Time of Note DATE: 02/27/17 TIME: 11:11 Consult Date/Type/Reason Admit Date/Time Feb 23, 2017 at 14:20 Initial Consult Date 02/23/17 Type of Consultation: Pulmonary Ordering Provider: BRYAN FELDER MD Subjective Patient anxious today on mechanical ventilation opens eyes follows commands. Currently hemodynamically stable. Tolerating CPAP trial. Objective Vital Signs Date Time Temp Pulse Resp B/P Pulse Ox O2 Delivery O2 Flow Rate FiO2 02/27/17 08:00 69 02/27/17 08:00 98.4 21 138/44 100 Mechanical Ventilator 02/27/17 05:18 30 02/23/17 11:57 15.0 Intake and Output 02/26/17 02/26/17 02/27/17 15:00 23:00 07:00 Intake Total 678.95 ml 404.84 ml 445.54 ml Output Total 3000 ml 0 ml 0 ml Balance -2321.05 ml 404.84 ml 445.54 ml Exam PHYSICAL EXAMINATION GENERAL: Elderly lady opens eyes appears comfortable at rest VITAL SIGNS: see below. HEENT: Pupils equal, round, and reactive to light. CARDIAC: S1, S2, 1/6 systolic ejection murmur CHEST: Diminished air entry bilaterally with rhonchi ABDOMEN: Mildly distended. Bowel sounds present no guarding or rebound EXTREMITIES: No cyanosis, clubbing edema +1 NEUROLOGIC: Generalized weakness Results/Medications Result Diagram: 02/27/17 0530 02/27/17 0530 Results 24 hrs Laboratory Tests Test 02/26/17 12:09 02/26/17 18:14 02/27/17 00:53 02/27/17 05:28 Bedside Glucose 203 175 184 151 Test 02/27/17 05:30 02/27/17 10:02 White Blood Count 13.4 #H Red Blood Count 2.88 L Hemoglobin 9.4 L Hematocrit 29.4 L Mean Corpuscular Volume 102.1 H Mean Corpuscular Hemoglobin 32.6 Mean Corpuscular Hemoglobin Concent 32.0 Red Cell Distribution Width 14.3 Platelet Count 149 Mean Platelet Volume 11.3 H Neutrophils % 87.7 H Lymphocytes % 4.0 L Monocytes % 7.8 Eosinophils % 0.0 Basophils % 0.1 Nucleated Red Blood Cells % 0.0 Neutrophils # 11.8 H Lymphocytes # 0.5 L Monocytes # 1.1 H Eosinophils # 0.0 Basophils # 0.0 Nucleated Red Blood Cells # 0.0 Sodium Level 144 Potassium Level 3.6 Chloride Level 101 Carbon Dioxide Level 28 Anion Gap 19 H Blood Urea Nitrogen 39 H Creatinine 3.74 H Glucose Level 146 Calcium Level 8.9 Phosphorus Level 4.9 # Magnesium Level 2.2 Blood Gas Specimen Source Blood arterial Arterial Blood Date Drawn 02/27/2017 10:10:33 AM Arterial Blood pH (Temp corrected) 7.330 L Arterial Blood pCO2 (Temp correct) 51.1 H Arterial Blood pO2 (Temp corrected) 74.0 L Arterial Blood HCO3 26.3 H Arterial Blood Base Excess -0.1 Arterial Blood Oxygen Saturation 93.8 L Giovanny Test ACCEPTAB Arterial Blood Gas Puncture Site Left Radial Arterial Blood Carboxyhemoglobin 0.2 Arterial Blood Methemoglobin 0.4 Blood Gas A-a O2 Differential 79.9 H Oxyhemoglobin Percent 93.2 Total Hemoglobin 10.7 L Blood Gas Temperature 37.0 Blood Gas Actual Respiration Rate 27 Blood Gas Modality VENT - CPAP FiO2 30.0 Blood Gas Low PEEP Setting 5.0 Blood Gas Pressure Support 10 Blood Gas Notified Whom JLD Blood Gas Notified Time 02/27/2017 10:18:03 AM Medications Current Medications Cefepime HCl (Maxipime 1gm/50 ml (Pmx)) 50 ml @ 100 mls/hr Q24H IVPB Last administered on 02/26/17 17:47; Admin Dose 100 MLS/HR; Start 02/23/17 at 16:36 Ondansetron HCl (Zofran Inj) 4 mg Q6H PRN IV NAUSEA AND/OR VOMITING; Start 02/23 at 15:30 Pantoprazole (Protonix Iv) 40 mg DAILY@06 IV Last administered on 02/27/17 05: 37; Admin Dose 40 MG; Start 02/24/17 at 06:00 Diagnostic Test (Pha) (Accu-Chek) 1 ea 02 XX Last administered on 02/27/17 00: 56; Admin Dose 1 EA; Start 02/24/17 at 02:00 Insulin Aspart (Novolog Insulin Pen) NOVOLOG *MODERATE* ALGORITHM Q6 SC Last administered on 02/27/17 05:38; Admin Dose 2 UNIT; Start 02/23/17 at 18:00 Miscellaneous Information 1 ea NOTE XX ; Start 02/23/17 at 16:30 Glucose (Glutose) 15 gm Q15M PRN PO DECREASED GLUCOSE; Start 02/23/17 at 16:30 Glucose (Glutose) 22.5 gm Q15M PRN PO DECREASED GLUCOSE; Start 02/23/17 at 16:30 Dextrose (D50w Syringe) 25 ml Q15M PRN IV DECREASED GLUCOSE; Start 02/23/17 at 16:30 Dextrose (D50w Syringe) 50 ml Q15M PRN IV DECREASED GLUCOSE; Start 02/23/17 at 16:30 Glucagon (Glucagen) 1 mg Q15M PRN IM DECREASED GLUCOSE; Start 02/23/17 at 16:30 Glucose 15 gm 15 gm Q15M PRN BUCCAL DECREASED GLUCOSE; Start 02/23/17 at 16:30 Propofol 100 ml @ 2.07 mls/hr Q12H IV Last administered on 02/27/17 01:01; Admin Dose 6.21 MLS/HR; Start 02/23/17 at 18:30 Norepinephrine/ Dextrose (Levophed/D5W) 500 ml @ 0 mls/hr TITRATE IV Last administered on 02/24/17 08:55; Admin Dose 1.87 MLS/HR; Start 02/24/17 at 07:00 Methylprednisolone Sodium Succinate (Solu-Medrol) 40 mg Q8 IV Last administered on 02/27/17 05:37; Admin Dose 40 MG; Start 02/25/17 at 14:00 Latanoprost (Xalatan) 1 drop HS BOTH EYES Last administered on 02/26/17 21:22; Admin Dose 1 DROP; Start 02/25/17 at 21:00 Brimonidine Tartrate (Alphagan P 0.15%) 1 drop BID BOTH EYES Last administered on 02/27/17 09:31; Admin Dose 1 DROP; Start 02/25/17 at 21:00 Dorzolamide/ Timolol (Cosopt) 1 drop BID BOTH EYES Last administered on 09:31; Admin Dose 1 DROP; Start 02/25/17 at 21:00 Assessment/Plan Chief Complaint/Hosp Course IMP: 1. Hypoxemic Respiratory Failure 2. s/p PEA arrest--etiology not entirely clear 3. ESRD on HD 4. Advanced ILD--consistent with chronic HP 5. Anemia likely of chronic disease. RECS: 1. Decrease sedation as tolerated 2. CPAP trial this morning hopefully safely extubate 3. Abx 4. HD in am 5. Minimize narcotics I had an extensive discussion with all family members today. Discussed goals of care. Family members state that prolonged mechanical ventilation including tracheostomy and feeding tube are not consistent with patient's wishes. In addition should she have cardiac arrest with further respiratory failure they did not want reintubation or CPR. Patient continue CPAP weaning trial this morning. Hopefully safely extubate following which palliative care consult may be appropriate. Family agreed to palliative care approach. 35 min cc time Problems: GURU RANDOLPH MD, [facility] Feb 27, 2017 11:13
[2017-02-27 13:27] LABS: AADO2 Arterial 72.5 mmHg (7.0-24.0); Allen Test ACCEPTAB; Arterial Base Excess 0.1 mmol/L (-3.0-3); Arterial COHb 0.7 % (0.0-3.0); Arterial Fraction of Oxyhgb 90.6 % (93.0-99.0); Arterial HCO3 27.9 mmol/L (22.0-26.0); Arterial MetHb 0.3 % (0.0-1.5); Arterial Total Hemglobin 10.9 g/dl (12.0-18.0); Blood Gas PS 10; MODE VENT - CPAP
--- NOTE | 2017-02-27 14:15 | CONS ---
Date/Time of Note Date/Time of Note DATE: 02/27/17 TIME: 14:13 Consult Date/Type/Reason Admit Date/Time Feb 23, 2017 at 14:20 Initial Consult Date 02/23/17 Type of Consultation: cardiology Ordering Provider: BRYAN FELDER MD Subjective CARDIOLOGY FOLLOW UP NOTE/ Critical care tessie: d/w staff and physicians. d/w family rhythm was reviewed. pt remains in NSR. pt remains intubated on vent BP has been stable. nonverbal pt is able to follow basic commands. OBJECTIVE: General obese female started with intubation on the vent. HEENT: NC/AT. NECK: NO JVD. no stridor. CV: RRR. systolic murmur; no gallop or rubs. PULM: no wheezing or rhonchi anteriorly. GI: SOFT, NT, ND, no rebound or guarding Extremity: trace B/L LE edema. no clubbing. Vascular: R fem venous in place. no hematoma or bleeding neuro: follows basic commands. Psych: gets intermittently agitated. rectal: deferred : normal echo personally reviewed: 1. Hyperdynamic left ventricular systolic function. Normal left ventricular cavity size. Mild concentric left ventricular hypertrophy. Ejection fraction is visually estimated at 70 %. Tissue Doppler/Mitral Doppler indices are consistent with impaired relaxation (Stage I diastolic dysfunction). 2. Normal right ventricular systolic function. Mild enlargement of right ventricle. 3. Mild mitral leaflet calcification. Mild mitral annular calcification. Trace mitral regurgitation. 4. Aortic sclerosis without stenosis. Trileaflet aortic valve. Moderate to severe aortic valve regurgitation. The regurgitation jet is eccentrically directed. 5. Normal appearance of the tricuspid valve. Estimated peak PA systolic pressure 62 mmHg. There is mild tricuspid regurgitation. 6. Normal IVC with respiratory collapse, however patient on ventilator. Objective Vital Signs Date Time Temp Pulse Resp B/P Pulse Ox O2 Delivery O2 Flow Rate FiO2 02/27/17 11:20 67 23 96 30 02/27/17 08:00 98.4 138/44 Mechanical Ventilator 02/23/17 11:57 15.0 Intake and Output 02/26/17 02/26/17 02/27/17 15:00 23:00 07:00 Intake Total 678.95 ml 404.84 ml 445.54 ml Output Total 3000 ml 0 ml 0 ml Balance -2321.05 ml 404.84 ml 445.54 ml Results/Medications Result Diagram: 02/27/17 0530 02/27/17 0530 Results 24 hrs Laboratory Tests Test 02/26/17 18:14 02/27/17 00:53 02/27/17 05:28 02/27/17 05:30 Bedside Glucose 175 184 151 White Blood Count 13.4 #H Red Blood Count 2.88 L Hemoglobin 9.4 L Hematocrit 29.4 L Mean Corpuscular Volume 102.1 H Mean Corpuscular Hemoglobin 32.6 Mean Corpuscular Hemoglobin Concent 32.0 Red Cell Distribution Width 14.3 Platelet Count 149 Mean Platelet Volume 11.3 H Neutrophils % 87.7 H Lymphocytes % 4.0 L Monocytes % 7.8 Eosinophils % 0.0 Basophils % 0.1 Nucleated Red Blood Cells % 0.0 Neutrophils # 11.8 H Lymphocytes # 0.5 L Monocytes # 1.1 H Eosinophils # 0.0 Basophils # 0.0 Nucleated Red Blood Cells # 0.0 Sodium Level 144 Potassium Level 3.6 Chloride Level 101 Carbon Dioxide Level 28 Anion Gap 19 H Blood Urea Nitrogen 39 H Creatinine 3.74 H Glucose Level 146 Calcium Level 8.9 Phosphorus Level 4.9 # Magnesium Level 2.2 Test 02/27/17 10:02 02/27/17 12:28 02/27/17 13:00 Blood Gas Specimen Source Blood arterial Blood arterial Arterial Blood Date Drawn 02/27/2017 10:10:33 AM 02/27/2017 1:10:07 PM Arterial Blood pH (Temp corrected) 7.330 L 7.272 *L Arterial Blood pCO2 (Temp correct) 51.1 H 61.9 H Arterial Blood pO2 (Temp corrected) 74.0 L 68.7 L Arterial Blood HCO3 26.3 H 27.9 H Arterial Blood Base Excess -0.1 0.1 Arterial Blood Oxygen Saturation 93.8 L 91.5 L Giovanny Test ACCEPTAB ACCEPTAB Arterial Blood Gas Puncture Site Left Radial Left Radial Arterial Blood Carboxyhemoglobin 0.2 0.7 Arterial Blood Methemoglobin 0.4 0.3 Blood Gas A-a O2 Differential 79.9 H 72.5 H Oxyhemoglobin Percent 93.2 90.6 L Total Hemoglobin 10.7 L 10.9 L Blood Gas Temperature 37.0 37.0 Blood Gas Actual Respiration Rate 27 27 Blood Gas Modality VENT - CPAP VENT - CPAP FiO2 30.0 30.0 Blood Gas Low PEEP Setting 5.0 5.0 Blood Gas Pressure Support 10 10 Blood Gas Notified Whom JLD JLD Blood Gas Notified Time 02/27/2017 10:18:03 AM 02/27/2017 1:27:16 PM Bedside Glucose 123 Blood Gas Critical Value Read Back Arnaud CARVAJAL RN Medications Current Medications Cefepime HCl (Maxipime 1gm/50 ml (Pmx)) 50 ml @ 100 mls/hr Q24H IVPB Last administered on 02/26/17 17:47; Admin Dose 100 MLS/HR; Start 02/23/17 at 16:36 Ondansetron HCl (Zofran Inj) 4 mg Q6H PRN IV NAUSEA AND/OR VOMITING; Start 02/23 at 15:30 Diagnostic Test (Pha) (Accu-Chek) 1 ea 02 XX Last administered on 02/27/17 00: 56; Admin Dose 1 EA; Start 02/24/17 at 02:00 Insulin Aspart (Novolog Insulin Pen) NOVOLOG *MODERATE* ALGORITHM Q6 SC Last administered on 02/27/17 05:38; Admin Dose 2 UNIT; Start 02/23/17 at 18:00 Miscellaneous Information 1 ea NOTE XX ; Start 02/23/17 at 16:30 Glucose (Glutose) 15 gm Q15M PRN PO DECREASED GLUCOSE; Start 02/23/17 at 16:30 Glucose (Glutose) 22.5 gm Q15M PRN PO DECREASED GLUCOSE; Start 02/23/17 at 16:30 Dextrose (D50w Syringe) 25 ml Q15M PRN IV DECREASED GLUCOSE; Start 02/23/17 at 16:30 Dextrose (D50w Syringe) 50 ml Q15M PRN IV DECREASED GLUCOSE; Start 02/23/17 at 16:30 Glucagon (Glucagen) 1 mg Q15M PRN IM DECREASED GLUCOSE; Start 02/23/17 at 16:30 Glucose 15 gm 15 gm Q15M PRN BUCCAL DECREASED GLUCOSE; Start 02/23/17 at 16:30 Propofol 100 ml @ 2.07 mls/hr Q12H IV Last administered on 02/27/17 01:01; Admin Dose 6.21 MLS/HR; Start 02/23/17 at 18:30 Norepinephrine/ Dextrose (Levophed/D5W) 500 ml @ 0 mls/hr TITRATE IV Last administered on 02/24/17 08:55; Admin Dose 1.87 MLS/HR; Start 02/24/17 at 07:00 Methylprednisolone Sodium Succinate (Solu-Medrol) 40 mg Q8 IV Last administered on 02/27/17 05:37; Admin Dose 40 MG; Start 02/25/17 at 14:00 Latanoprost (Xalatan) 1 drop HS BOTH EYES Last administered on 02/26/17 21:22; Admin Dose 1 DROP; Start 02/25/17 at 21:00 Brimonidine Tartrate (Alphagan P 0.15%) 1 drop BID BOTH EYES Last administered on 02/27/17 09:31; Admin Dose 1 DROP; Start 02/25/17 at 21:00 Dorzolamide/ Timolol (Cosopt) 1 drop BID BOTH EYES Last administered on 09:31; Admin Dose 1 DROP; Start 02/25/17 at 21:00 Famotidine (Pepcid Iv) 20 mg DAILY IV ; Start 02/28/17 at 09:00 Assessment/Plan Chief Complaint/Hosp Course 1. Cardiopulmonary arrest 2. Shock probably septic shock, pneumonia with GNR bacteremia: improving now 3. transient ST elevation on EKG patient is well with no significant flow- limiting obstruction on the coronary angiogram 4. Renal failure on dialysis 5. History of hypertension now hypotensive in shock 6. Diabetes 7. History of dyslipidemia 8. Hypoxemic respiratory failure currently intubated on the vent 9. Diarrhea 10. AI: mod/ severe: etiology unclear. no evidence of aortic dissection on CT chest. r/o endocarditis/ bacteremia. Recommendations:. off the Levophed now. hemodialysis per renal consult. Diabetic management as per internal medicine. Antibiotic management as per internal medicine. Continue the vent support for now and try weaning if stable. (defer to pulm team. ). . cont ICU care and vent support More than 38 minutes of critical care time was reminded to increase patient excluding any procedures Thank you for his referral. I will continue to follow along with you. MALCOLM SANCHEZ MD [facility] Problems: MALCOLM SANCHEZ MD Feb 27, 2017 14:15
[2017-02-27] MEDS: CEFEPIME 1GM/50 ML (PMX) 50 ML IVPB SCH (17:07)
--- NOTE | 2017-02-27 20:01 | PN ---
Date/Time of Note Date/Time of Note DATE: 02/27/17 TIME: 20:00 Assessment/Plan VTE Prophylaxis VTE Prophylaxis Intervention: LMWH Lines/Catheters IV [facility] PERMACATH Urinary Cath still in place: No Assessment/Plan Chief Complaint/Hosp Course 76 yo female with ESRD on HD s/p cardiac arrest and with septic shock - Wean sedation and try to extubate tomorrow - Continue HD per renal - TTE with good LV function - Continue broad spectrum abx for VAP DNR Problems: Subjective 24 Hr Interval Summary Free Text/Dictation Difficult extubation, failed CPAP Back on vent Patient made DNR Exam/Review of Systems Vital Signs Vitals Vital Signs Date Time Temp Pulse Resp B/P Pulse Ox O2 Delivery O2 Flow Rate FiO2 02/27/17 19:16 65 16 96 30 02/27/17 19:00 89/31 Mechanical Ventilator 02/27/17 16:00 98.6 02/23/17 11:57 15.0 Intake and Output 02/26/17 02/26/17 02/27/17 15:00 23:00 07:00 Intake Total 678.95 ml 404.84 ml 445.54 ml Output Total 3000 ml 0 ml 0 ml Balance -2321.05 ml 404.84 ml 445.54 ml Results Result Diagram: 02/27/1730 02/27/17 0530 Results 24 hrs Laboratory Tests Test 02/27/17 00:53 02/27/17 05:28 02/27/17 05:30 02/27/17 10:02 Bedside Glucose 184 151 White Blood Count 13.4 #H Red Blood Count 2.88 L Hemoglobin 9.4 L Hematocrit 29.4 L Mean Corpuscular Volume 102.1 H Mean Corpuscular Hemoglobin 32.6 Mean Corpuscular Hemoglobin Concent 32.0 Red Cell Distribution Width 14.3 Platelet Count 149 Mean Platelet Volume 11.3 H Neutrophils % 87.7 H Lymphocytes % 4.0 L Monocytes % 7.8 Eosinophils % 0.0 Basophils % 0.1 Nucleated Red Blood Cells % 0.0 Neutrophils # 11.8 H Lymphocytes # 0.5 L Monocytes # 1.1 H Eosinophils # 0.0 Basophils # 0.0 Nucleated Red Blood Cells # 0.0 Sodium Level 144 Potassium Level 3.6 Chloride Level 101 Carbon Dioxide Level 28 Anion Gap 19 H Blood Urea Nitrogen 39 H Creatinine 3.74 H Glucose Level 146 Calcium Level 8.9 Phosphorus Level 4.9 # Magnesium Level 2.2 Blood Gas Specimen Source Blood arterial Arterial Blood Date Drawn 02/27/2017 10:10:33 AM Arterial Blood pH (Temp corrected) 7.330 L Arterial Blood pCO2 (Temp correct) 51.1 H Arterial Blood pO2 (Temp corrected) 74.0 L Arterial Blood HCO3 26.3 H Arterial Blood Base Excess -0.1 Arterial Blood Oxygen Saturation 93.8 L Giovanny Test ACCEPTAB Arterial Blood Gas Puncture Site Left Radial Arterial Blood Carboxyhemoglobin 0.2 Arterial Blood Methemoglobin 0.4 Blood Gas A-a O2 Differential 79.9 H Oxyhemoglobin Percent 93.2 Total Hemoglobin 10.7 L Blood Gas Temperature 37.0 Blood Gas Actual Respiration Rate 27 Blood Gas Modality VENT - CPAP FiO2 30.0 Blood Gas Low PEEP Setting 5.0 Blood Gas Pressure Support 10 Blood Gas Notified Whom JLD Blood Gas Notified Time 02/27/2017 10:18:03 AM Test 02/27/17 12:28 02/27/17 13:00 02/27/17 18:18 Bedside Glucose 123 130 Blood Gas Specimen Source Blood arterial Arterial Blood Date Drawn 02/27/2017 1:10:07 PM Arterial Blood pH (Temp corrected) 7.272 *L Arterial Blood pCO2 (Temp correct) 61.9 H Arterial Blood pO2 (Temp corrected) 68.7 L Arterial Blood HCO3 27.9 H Arterial Blood Base Excess 0.1 Arterial Blood Oxygen Saturation 91.5 L Giovanny Test ACCEPTAB Arterial Blood Gas Puncture Site Left Radial Arterial Blood Carboxyhemoglobin 0.7 Arterial Blood Methemoglobin 0.3 Blood Gas A-a O2 Differential 72.5 H Oxyhemoglobin Percent 90.6 L Total Hemoglobin 10.9 L Blood Gas Temperature 37.0 Blood Gas Actual Respiration Rate 27 Blood Gas Modality VENT - CPAP FiO2 30.0 Blood Gas Low PEEP Setting 5.0 Blood Gas Pressure Support 10 Blood Gas Critical Value Read Back Arnaud CARVAJAL RN Blood Gas Notified Whom JLD Blood Gas Notified Time 02/27/2017 1:27:16 PM Medications Medications Current Medications Cefepime HCl (Maxipime 1gm/50 ml (Pmx)) 50 ml @ 100 mls/hr Q24H IVPB Last administered on 02/27/17t 17:07; Admin Dose 100 MLS/HR; Start 02/23/17 at 16:36 Ondansetron HCl (Zofran Inj) 4 mg Q6H PRN IV NAUSEA AND/OR VOMITING; Start 02/23 at 15:30 Diagnostic Test (Pha) (Accu-Chek) 1 ea 02 XX Last administered on 02/27/17 00: 56; Admin Dose 1 EA; Start 02/24/17 at 02:00 Insulin Aspart (Novolog Insulin Pen) NOVOLOG *MODERATE* ALGORITHM Q6 SC Last administered on 02/27/17 05:38; Admin Dose 2 UNIT; Start 02/23/17 at 18:00 Miscellaneous Information 1 ea NOTE XX ; Start 02/23/17 at 16:30 Glucose (Glutose) 15 gm Q15M PRN PO DECREASED GLUCOSE; Start 02/23/17 at 16:30 Glucose (Glutose) 22.5 gm Q15M PRN PO DECREASED GLUCOSE; Start 02/23/17 at 16:30 Dextrose (D50w Syringe) 25 ml Q15M PRN IV DECREASED GLUCOSE; Start 02/23/17 at 16:30 Dextrose (D50w Syringe) 50 ml Q15M PRN IV DECREASED GLUCOSE; Start 02/23/17 at 16:30 Glucagon (Glucagen) 1 mg Q15M PRN IM DECREASED GLUCOSE; Start 02/23/17 at 16:30 Glucose 15 gm 15 gm Q15M PRN BUCCAL DECREASED GLUCOSE; Start 02/23/17 at 16:30 Propofol 100 ml @ 2.07 mls/hr Q12H IV Last administered on 02/27/17 14:44; Admin Dose 6.21 MLS/HR; Start 02/23/17 at 18:30 Norepinephrine/ Dextrose (Levophed/D5W) 500 ml @ 0 mls/hr TITRATE IV Last administered on 02/24/17 08:55; Admin Dose 1.87 MLS/HR; Start 02/24/17 at 07:00 Methylprednisolone Sodium Succinate (Solu-Medrol) 40 mg Q8 IV Last administered on 02/27/17 14:44; Admin Dose 40 MG; Start 02/25/17 at 14:00 Latanoprost (Xalatan) 1 drop HS BOTH EYES Last administered on 02/26/17 21:22; Admin Dose 1 DROP; Start 02/25/17 at 21:00 Brimonidine Tartrate (Alphagan P 0.15%) 1 drop BID BOTH EYES Last administered on 02/27/17 09:31; Admin Dose 1 DROP; Start 02/25/17 at 21:00 Dorzolamide/ Timolol (Cosopt) 1 drop BID BOTH EYES Last administered on 09:31; Admin Dose 1 DROP; Start 02/25/17 at 21:00 Famotidine (Pepcid Iv) 20 mg DAILY IV ; Start 02/28/17 at 09:00 SALEEM FUENTES MD Feb 27, 2017 20:01
[2017-02-27] MEDS: LATANOPROST 0.005% 2.5 ML OPH BOTH EYES SCH (20:41)
[2017-02-28] VITALS (62 sets, daily range): BP systolic 88–137; BP diastolic 38–69; PULSE 58–152; RESP 15–27
[2017-02-28] MEDS: ALBUTEROL 18 GM INHALER INH SCH ×4 (03:48→20:53)
[2017-02-28] MEDS: IPRATROPIUM (HFA) 12.9 GM INHALER INH SCH ×4 (03:48→20:53)
[2017-02-28] MEDS: METHYLPREDNISOLONE 40 MG INJ IV SCH ×3 (05:10→21:21)
[2017-02-28] MEDS: PROPOFOL 100 ML IV SCH ×3 (05:10→23:17)
[2017-02-28] MEDS: INSULIN ASPART [NOVOLOG] 3 ML PEN SC SCH ×3 (05:13→18:19)
[2017-02-28 05:37] LABS: ABNORMAL IP MESSAGE 1; HEMATOCRIT 27.3 % (37.0-47.0); HEMOGLOBIN 8.4 g/dl (12.0-16.0); LYMPHOCYTES # 0.5 10^3/ul (0.8-2.9); MEAN CORPUSCULAR HEMOGLOBIN 31.2 pg (29.0-33.0); MEAN CORPUSCULAR HGB CONC 30.8 g/dl (32.0-37.0); MEAN CORPUSCULAR VOLUME 101.5 fl (82.0-101.0); MEAN PLATELET VOLUME 11.1 fl (7.4-10.4); MONOCYTE # 0.5 10^3/ul (0.3-0.9); MONOCYTES % 4.6 % (0.0-11.0); NEUTROPHIL # 9.2 10^3/ul (1.6-7.5); NEUTROPHILS % 89.8 % (39.0-77.0); PLATELET COUNT 138 10^3/UL (140-415); RED BLOOD COUNT 2.69 10^6/ul (4.20-5.40); RED CELL DISTRIBUTION WIDTH 14.5 % (11.5-14.5); WHITE BLOOD COUNT 10.2 10^3/ul (4.8-10.8)
[2017-02-28 06:11] LABS: POSITIVE DIFF @See below
[2017-02-28 06:13] LABS: CALCIUM 8.7 mg/dl (8.4-10.2); CREATININE 5.01 mg/dl (0.44-1.00); MAGNESIUM 2.3 mg/dl (1.7-2.5); PHOSPHORUS 6.8 mg/dl (2.5-4.9); POTASSIUM 4.1 mmol/L (3.5-5.1)
--- NOTE | 2017-02-28 08:44 | CONS ---
Date/Time of Note Date/Time of Note DATE: 02/28/17 TIME: 08:42 Consult Date/Type/Reason Admit Date/Time Feb 23, 2017 at 14:20 Initial Consult Date 02/23/17 Type of Consultation: cardiology Ordering Provider: BRYAN FELDER MD Subjective CARDIOLOGY FOLLOW UP NOTE/ Critical care tessie: d/w staff and physicians. d/w family d/w Dr Kirk rhythm was reviewed. pt remains in NSR. pt remains intubated on vent BP has been stable. pt is on HD now. pt is able to follow basic commands. OBJECTIVE: General obese female started with intubation on the vent. HEENT: NC/AT. NECK: NO JVD. no stridor. CV: RRR. systolic murmur; no gallop or rubs. PULM: no wheezing or rhonchi anteriorly. GI: SOFT, NT, ND, no rebound or guarding Extremity: trace B/L LE edema. no clubbing. Vascular: R fem venous in place. no hematoma or bleeding neuro: follows basic commands. opens her eyes to verbal stimuli. Psych: gets intermittently agitated. rectal: deferred : normal echo personally reviewed: 1. Hyperdynamic left ventricular systolic function. Normal left ventricular cavity size. Mild concentric left ventricular hypertrophy. Ejection fraction is visually estimated at 70 %. Tissue Doppler/Mitral Doppler indices are consistent with impaired relaxation (Stage I diastolic dysfunction). 2. Normal right ventricular systolic function. Mild enlargement of right ventricle. 3. Mild mitral leaflet calcification. Mild mitral annular calcification. Trace mitral regurgitation. 4. Aortic sclerosis without stenosis. Trileaflet aortic valve. Moderate to severe aortic valve regurgitation. The regurgitation jet is eccentrically directed. 5. Normal appearance of the tricuspid valve. Estimated peak PA systolic pressure 62 mmHg. There is mild tricuspid regurgitation. 6. Normal IVC with respiratory collapse, however patient on ventilator. Objective Vital Signs Date Time Temp Pulse Resp B/P Pulse Ox O2 Delivery O2 Flow Rate FiO2 02/28/17 07:30 73 02/28/17 06:00 17 122/45 97 Mechanical Ventilator 02/28/17 05:40 30 02/28/17 04:00 98.8 Intake and Output 02/27/17 02/27/17 02/28/17 15:00 23:00 07:00 Intake Total 80.19 ml 634.52 ml 347.29 ml Output Total 0 ml 0 ml 0 ml Balance 80.19 ml 634.52 ml 347.29 ml Results/Medications Result Diagram: 02/28/17 0500 02/28/17 0500 Results 24 hrs Laboratory Tests Test 02/27/17 10:02 02/27/17 12:28 02/27/17 13:00 02/27/17 18:18 Blood Gas Specimen Source Blood arterial Blood arterial Arterial Blood Date Drawn 02/27/2017 10:10:33 AM 02/27/2017 1:10:07 PM Arterial Blood pH (Temp corrected) 7.330 L 7.272 *L Arterial Blood pCO2 (Temp correct) 51.1 H 61.9 H Arterial Blood pO2 (Temp corrected) 74.0 L 68.7 L Arterial Blood HCO3 26.3 H 27.9 H Arterial Blood Base Excess -0.1 0.1 Arterial Blood Oxygen Saturation 93.8 L 91.5 L Giovanny Test ACCEPTAB ACCEPTAB Arterial Blood Gas Puncture Site Left Radial Left Radial Arterial Blood Carboxyhemoglobin 0.2 0.7 Arterial Blood Methemoglobin 0.4 0.3 Blood Gas A-a O2 Differential 79.9 H 72.5 H Oxyhemoglobin Percent 93.2 90.6 L Total Hemoglobin 10.7 L 10.9 L Blood Gas Temperature 37.0 37.0 Blood Gas Actual Respiration Rate 27 27 Blood Gas Modality VENT - CPAP VENT - CPAP FiO2 30.0 30.0 Blood Gas Low PEEP Setting 5.0 5.0 Blood Gas Pressure Support 10 10 Blood Gas Notified Whom JESS ALDRICHD Blood Gas Notified Time 02/27/2017 10:18:03 AM 02/27/2017 1:27:16 PM Bedside Glucose 123 130 Blood Gas Critical Value Read Back Arnaud CARVAJAL RN Test 02/27/17 23:06 02/28/17 05:00 02/28/17 05:10 Bedside Glucose 177 240 H White Blood Count 10.2 # Red Blood Count 2.69 L Hemoglobin 8.4 L Hematocrit 27.3 L Mean Corpuscular Volume 101.5 H Mean Corpuscular Hemoglobin 31.2 Mean Corpuscular Hemoglobin Concent 30.8 L Red Cell Distribution Width 14.5 Platelet Count 138 L Mean Platelet Volume 11.1 H Neutrophils % 89.8 H Lymphocytes % 5.0 L Monocytes % 4.6 Eosinophils % 0.0 Basophils % 0.0 Nucleated Red Blood Cells % 0.0 Neutrophils # 9.2 H Lymphocytes # 0.5 L Monocytes # 0.5 Eosinophils # 0.0 Basophils # 0.0 Nucleated Red Blood Cells # 0.0 Sodium Level 141 Potassium Level 4.1 Chloride Level 97 Carbon Dioxide Level 26 Anion Gap 22 H Blood Urea Nitrogen 64 H Creatinine 5.01 H Glucose Level 204 Calcium Level 8.7 Phosphorus Level 6.8 H Magnesium Level 2.3 Medications Current Medications Cefepime HCl (Maxipime 1gm/50 ml (Pmx)) 50 ml @ 100 mls/hr Q24H IVPB Last administered on 02/27/17 17:07; Admin Dose 100 MLS/HR; Start 02/23/17 at 16:36 Ondansetron HCl (Zofran Inj) 4 mg Q6H PRN IV NAUSEA AND/OR VOMITING; Start 02/23 at 15:30 Diagnostic Test (Pha) (Accu-Chek) 1 ea 02 XX Last administered on 02/27/17 00: 56; Admin Dose 1 EA; Start 02/24/17 at 02:00 Insulin Aspart (Novolog Insulin Pen) NOVOLOG *MODERATE* ALGORITHM Q6 SC Last administered on 02/28/17 05:13; Admin Dose 6 UNIT; Start 02/23/17 at 18:00 Miscellaneous Information 1 ea NOTE XX ; Start 02/23/17 at 16:30 Glucose (Glutose) 15 gm Q15M PRN PO DECREASED GLUCOSE; Start 02/23/17 at 16:30 Glucose (Glutose) 22.5 gm Q15M PRN PO DECREASED GLUCOSE; Start 02/23/17 at 16:30 Dextrose (D50w Syringe) 25 ml Q15M PRN IV DECREASED GLUCOSE; Start 02/23/17 at 16:30 Dextrose (D50w Syringe) 50 ml Q15M PRN IV DECREASED GLUCOSE; Start 02/23/17 at 16:30 Glucagon (Glucagen) 1 mg Q15M PRN IM DECREASED GLUCOSE; Start 02/23/17 at 16:30 Glucose 15 gm 15 gm Q15M PRN BUCCAL DECREASED GLUCOSE; Start 02/23/17 at 16:30 Propofol 100 ml @ 2.07 mls/hr Q12H IV Last administered on 02/28/17 05:10; Admin Dose 10.35 MLS/HR; Start 02/23/17 at 18:30 Norepinephrine/ Dextrose (Levophed/D5W) 500 ml @ 0 mls/hr TITRATE IV Last administered on 02/24/17 08:55; Admin Dose 1.87 MLS/HR; Start 02/24/17 at 07:00 Methylprednisolone Sodium Succinate (Solu-Medrol) 40 mg Q8 IV Last administered on 02/28/17 05:10; Admin Dose 40 MG; Start 02/25/17 at 14:00 Latanoprost (Xalatan) 1 drop HS BOTH EYES Last administered on 02/27/17 20:41; Admin Dose 1 DROP; Start 02/25/17 at 21:00 Brimonidine Tartrate (Alphagan P 0.15%) 1 drop BID BOTH EYES Last administered on 02/27/17 20:41; Admin Dose 1 DROP; Start 02/25/17 at 21:00 Dorzolamide/ Timolol (Cosopt) 1 drop BID BOTH EYES Last administered on 20:42; Admin Dose 1 DROP; Start 02/25/17 at 21:00 Famotidine (Pepcid Iv) 20 mg DAILY IV ; Start 02/28/17 at 09:00 Assessment/Plan Chief Complaint/Hosp Course 1. Cardiopulmonary arrest 2. Shock probably septic shock, pneumonia with GNR bacteremia: improving now 3. transient ST elevation on EKG patient is well with no significant flow- limiting obstruction on the coronary angiogram 4. Renal failure on dialysis 5. History of hypertension now hypotensive in shock 6. Diabetes 7. History of dyslipidemia 8. Hypoxemic respiratory failure currently intubated on the vent 9. Diarrhea 10. AI: mod/ severe: etiology unclear. no evidence of aortic dissection on CT chest. r/o endocarditis/ bacteremia. Recommendations:. off the Levophed now. hemodialysis per renal consult. Diabetic management as per internal medicine. Antibiotic management as per internal medicine. Continue the vent support for now and try weaning after HD if stable. (defer to pulm team. ). . cont ICU care and vent support More than 36 minutes of critical care time was reminded to increase patient excluding any procedures Thank you for his referral. I will continue to follow along with you. MALCOLM SANCHEZ MD [facility] Problems: MALCOLM SANCHEZ MD Feb 28, 2017 08:44
--- NOTE | 2017-02-28 08:47 | RADRPT ---
PROCEDURE: XR Chest. CLINICAL INDICATION: pna chf TECHNIQUE: Single frontal view of the chest was obtained COMPARISON: Chest x-ray 02/27/2017 FINDINGS: The endotracheal tube remains approximate 3.5 cm above the young. The nasogastric tube is stable i n position with tip projecting over the gastric fundus region. The left chest Perma-Cath with tip i n the mid superior vena cava is stable. The cardiac silhouette remains mildly enlarged. There are atherosclerotic calcifications of the aorta. There is redemonstration of diffusely prominent interstitial markings with diffuse reticular opaciti es throughout both lungs, slightly increased compared to prior study. No pneumothorax or significant pleural effusion is seen. There are degenerative changes of the spine. IMPRESSION: 1. Diffuse prominence of interstitial lung markings, suggesting underlying chronic lung disease. 2. Interval increase in diffuse reticular opacities scattered throughout both lung, suggesting worse jessica pulmonary edema. Superimposed infection cannot be excluded. 3. Stable support lines/tubes. 4. Mild cardiomegaly. 5. Thoracic aortic atherosclerotic disease. RPTAT: EE Physician Ryan Date Time Electronically viewed and signed by Physician Ryan on 02/28/2017 08:47 /
[2017-02-28 09:13] LABS: AADO2 Arterial 79.7 mmHg (7.0-24.0); Allen Test ACCEPTAB; Arterial Base Excess 3.3 mmol/L (-3.0-3); Arterial COHb 0.3 % (0.0-3.0); Arterial Fraction of Oxyhgb 94.4 % (93.0-99.0); Arterial HCO3 28.9 mmol/L (22.0-26.0); Arterial MetHb 0.5 % (0.0-1.5); Arterial Total Hemglobin 11.4 g/dl (12.0-18.0); MODE VENT - AC
--- NOTE | 2017-02-28 09:23 | CONS ---
Date/Time of Note Date/Time of Note DATE: 02/28/17 TIME: 09:17 Assessment/Plan Assessment/Plan Chief Complaint/Hosp Course 76 Y/O with 1.S/P Cardiac arrest 2 ESRD on HD 3 DM 4 S/P PEA 5 CAD Recs HD done today removed 2.5 L Extubation per Pulmonary Labs in am Problems: Consultation Date/Type/Reason Admit Date/Time Feb 23, 2017 at 14:20 Initial Consult Date 02/23/17 Type of Consultation: cardiology Referring Provider: BRYAN FELDER MD 24 HR Interval Summary Free Text/Dictation Pt had HD this am removed 2.5 L Follows commands Off Levophed Plan to possible extubate Exam/Review of Systems Vital Signs Vitals Vital Signs Date Time Temp Pulse Resp B/P Pulse Ox O2 Delivery O2 Flow Rate FiO2 02/28/17 08:30 75 22 99/50 97 Mechanical Ventilator 02/28/17 08:00 97.5 02/28/17 05:40 30 Intake and Output 02/27/17 02/27/17 02/28/17 15:00 23:00 07:00 Intake Total 80.19 ml 634.52 ml 397.29 ml Output Total 0 ml 0 ml 0 ml Balance 80.19 ml 634.52 ml 397.29 ml Exam Constitutional: other (Opens eyes and follows commands) Eyes: nl sclera Neck: supple Respiratory: diminished breath sounds Cardiovascular: regular rate and rhythm Gastrointestinal: bowel sounds Extremities: pitting pedal edema Additional Comments Access: left permacath in place Constitutional: alert, oriented, well developed Psych: nl mood/affect, no complaints Head: atraumatic, normocephalic Eyes: EOMI, PERRL, nl conjunctiva, nl lids, nl sclera ENMT: nl external ears & nose, nl lips & teeth, nl nasal mucosa & septum Neck: non-tender, supple Respiratory: clear to auscultation, normal air movement Cardiovascular: nl pulses, regular rate and rhythm Gastrointestinal: nl liver, spleen, non-tender, soft Musculoskeletal: nl extremities to inspection, nl gait and stance Extremities: normal pulses Neurological: FISHER OYSTER II-XII intact, nl mental status, nl speech, nl strength Skin: nl turgor, No rash or lesions Lymph: nl lymph nodes Results Result Diagram: 02/28/17 0500 02/28/17 0500 Results 24 hrs Laboratory Tests Test 02/27/17 10:02 02/27/17 12:28 02/27/17 13:00 02/27/17 18:18 Blood Gas Specimen Source Blood arterial Blood arterial Arterial Blood Date Drawn 02/27/2017 10:10:33 AM 02/27/2017 1:10:07 PM Arterial Blood pH (Temp corrected) 7.330 L 7.272 *L Arterial Blood pCO2 (Temp correct) 51.1 H 61.9 H Arterial Blood pO2 (Temp corrected) 74.0 L 68.7 L Arterial Blood HCO3 26.3 H 27.9 H Arterial Blood Base Excess -0.1 0.1 Arterial Blood Oxygen Saturation 93.8 L 91.5 L Giovanny Test ACCEPTAB ACCEPTAB Arterial Blood Gas Puncture Site Left Radial Left Radial Arterial Blood Carboxyhemoglobin 0.2 0.7 Arterial Blood Methemoglobin 0.4 0.3 Blood Gas A-a O2 Differential 79.9 H 72.5 H Oxyhemoglobin Percent 93.2 90.6 L Total Hemoglobin 10.7 L 10.9 L Blood Gas Temperature 37.0 37.0 Blood Gas Actual Respiration Rate 27 27 Blood Gas Modality VENT - CPAP VENT - CPAP FiO2 30.0 30.0 Blood Gas Low PEEP Setting 5.0 5.0 Blood Gas Pressure Support 10 10 Blood Gas Notified Whom JESS MERCADO Blood Gas Notified Time 02/27/2017 10:18:03 AM 02/27/2017 1:27:16 PM Bedside Glucose 123 130 Blood Gas Critical Value Read Back Arnaud CARVAJAL RN Test 02/27/17 23:06 02/28/17 05:00 02/28/17 05:10 02/28/17 07:00 Bedside Glucose 177 240 H White Blood Count 10.2 # Red Blood Count 2.69 L Hemoglobin 8.4 L Hematocrit 27.3 L Mean Corpuscular Volume 101.5 H Mean Corpuscular Hemoglobin 31.2 Mean Corpuscular Hemoglobin Concent 30.8 L Red Cell Distribution Width 14.5 Platelet Count 138 L Mean Platelet Volume 11.1 H Neutrophils % 89.8 H Lymphocytes % 5.0 L Monocytes % 4.6 Eosinophils % 0.0 Basophils % 0.0 Nucleated Red Blood Cells % 0.0 Neutrophils # 9.2 H Lymphocytes # 0.5 L Monocytes # 0.5 Eosinophils # 0.0 Basophils # 0.0 Nucleated Red Blood Cells # 0.0 Sodium Level 141 Potassium Level 4.1 Chloride Level 97 Carbon Dioxide Level 26 Anion Gap 22 H Blood Urea Nitrogen 64 H Creatinine 5.01 H Glucose Level 204 Calcium Level 8.7 Phosphorus Level 6.8 H Magnesium Level 2.3 Blood Gas Specimen Source Blood arterial Arterial Blood Date Drawn 02/28/2017 9:00:18 AM Arterial Blood pH (Temp corrected) 7.393 Arterial Blood pCO2 (Temp correct) 48.5 H Arterial Blood pO2 (Temp corrected) 77.2 L Arterial Blood HCO3 28.9 H Arterial Blood Base Excess 3.3 H Arterial Blood Oxygen Saturation 95.2 Giovanny Test ACCEPTAB Arterial Blood Gas Puncture Site Left Radial Arterial Blood Carboxyhemoglobin 0.3 Arterial Blood Methemoglobin 0.5 Blood Gas A-a O2 Differential 79.7 H Oxyhemoglobin Percent 94.4 Total Hemoglobin 11.4 L Blood Gas Temperature 37.0 Blood Gas Respiration Rate 16.0 Blood Gas Actual Respiration Rate 19 Blood Gas Modality VENT - AC FiO2 30.0 Blood Gas Tidal Volume 400.0 Blood Gas Low PEEP Setting 5.0 Blood Gas Notified Whom JLD Blood Gas Notified Time 02/28/2017 9:12:54 AM Medications Medications Current Medications Cefepime HCl (Maxipime 1gm/50 ml (Pmx)) 50 ml @ 100 mls/hr Q24H IVPB Last administered on 02/27/17 17:07; Admin Dose 100 MLS/HR; Start 02/23/17 at 16:36 Ondansetron HCl (Zofran Inj) 4 mg Q6H PRN IV NAUSEA AND/OR VOMITING; Start 02/23 at 15:30 Diagnostic Test (Pha) (Accu-Chek) 1 ea 02 XX Last administered on 02/27/17 00: 56; Admin Dose 1 EA; Start 02/24/17 at 02:00 Insulin Aspart (Novolog Insulin Pen) NOVOLOG *MODERATE* ALGORITHM Q6 SC Last administered on 02/28/17 05:13; Admin Dose 6 UNIT; Start 02/23/17 at 18:00 Miscellaneous Information 1 ea NOTE XX ; Start 02/23/17 at 16:30 Glucose (Glutose) 15 gm Q15M PRN PO DECREASED GLUCOSE; Start 02/23/17 at 16:30 Glucose (Glutose) 22.5 gm Q15M PRN PO DECREASED GLUCOSE; Start 02/23/17 at 16:30 Dextrose (D50w Syringe) 25 ml Q15M PRN IV DECREASED GLUCOSE; Start 02/23/17 at 16:30 Dextrose (D50w Syringe) 50 ml Q15M PRN IV DECREASED GLUCOSE; Start 02/23/17 at 16:30 Glucagon (Glucagen) 1 mg Q15M PRN IM DECREASED GLUCOSE; Start 02/23/17 at 16:30 Glucose 15 gm 15 gm Q15M PRN BUCCAL DECREASED GLUCOSE; Start 02/23/17 at 16:30 Propofol 100 ml @ 2.07 mls/hr Q12H IV Last administered on 02/28/17 05:10; Admin Dose 10.35 MLS/HR; Start 02/23/17 at 18:30 Norepinephrine/ Dextrose (Levophed/D5W) 500 ml @ 0 mls/hr TITRATE IV Last administered on 02/24/17 08:55; Admin Dose 1.87 MLS/HR; Start 02/24/17 at 07:00 Methylprednisolone Sodium Succinate (Solu-Medrol) 40 mg Q8 IV Last administered on 02/28/17 05:10; Admin Dose 40 MG; Start 02/25/17 at 14:00 Latanoprost (Xalatan) 1 drop HS BOTH EYES Last administered on 02/27/17 20:41; Admin Dose 1 DROP; Start 02/25/17 at 21:00 Brimonidine Tartrate (Alphagan P 0.15%) 1 drop BID BOTH EYES Last administered on 02/27/17 20:41; Admin Dose 1 DROP; Start 02/25/17 at 21:00 Dorzolamide/ Timolol (Cosopt) 1 drop BID BOTH EYES Last administered on 20:42; Admin Dose 1 DROP; Start 02/25/17 at 21:00 Famotidine (Pepcid Iv) 20 mg DAILY IV ; Start 02/28/17 at 09:00 CHETNA DACOSTA MD Feb 28, 2017 09:23
[2017-02-28] MEDS: FAMOTIDINE 20 MG INJ IV SCH (09:27)
[2017-02-28] MEDS: BRIMONIDINE 0.15% 5 ML OPH BOTH EYES SCH ×2 (09:28→20:13)
[2017-02-28] MEDS: DORZOLAMIDE/TIMOLOL 10 ML OPH BOTH EYES SCH ×2 (09:28→20:13)
[2017-02-28 12:59] LABS: AADO2 Arterial 75.1 mmHg (7.0-24.0); Allen Test ACCEPTAB; Arterial Base Excess 2.2 mmol/L (-3.0-3); Arterial COHb 1.1 % (0.0-3.0); Arterial Fraction of Oxyhgb 86.3 % (93.0-99.0); Arterial HCO3 30.6 mmol/L (22.0-26.0); Arterial MetHb 0.3 % (0.0-1.5); Arterial Total Hemglobin 11.7 g/dl (12.0-18.0); Blood Gas PS 10; MODE VENT - CPAP
--- NOTE | 2017-02-28 15:16 | CONS ---
Date/Time of Note Date/Time of Note DATE: 02/28/17 TIME: 15:14 Consult Date/Type/Reason Admit Date/Time Feb 23, 2017 at 14:20 Initial Consult Date 02/23/17 Type of Consultation: Pulmonary Ordering Provider: BRYAN FELDER MD Subjective Patient continues mechanical ventilation. Failed CPAP trial again this morning. Arterial blood gas demonstrates respiratory acidosis patient also had increased work of breathing. Objective Vital Signs Date Time Temp Pulse Resp B/P Pulse Ox O2 Delivery O2 Flow Rate FiO2 02/28/17 12:00 71 02/28/17 11:20 24 96 30 02/28/17 08:30 99/50 Mechanical Ventilator 02/28/17 08:00 97.5 Intake and Output 02/27/17 02/27/17 02/28/17 14:59 22:59 06:59 Intake Total 60.19 ml 598.31 ml 409.71 ml Output Total 0 ml 0 ml 0 ml Balance 60.19 ml 598.31 ml 409.71 ml Exam PHYSICAL EXAMINATION GENERAL: Elderly lady opens eyes appears comfortable at rest VITAL SIGNS: see below. HEENT: Pupils equal, round, and reactive to light. CARDIAC: S1, S2, 1/6 systolic ejection murmur CHEST: Diminished air entry bilaterally with rhonchi ABDOMEN: Mildly distended. Bowel sounds present no guarding or rebound EXTREMITIES: No cyanosis, clubbing edema +1 NEUROLOGIC: Generalized weakness Results/Medications Result Diagram: 02/28/17 0500 02/28/17 0500 Results 24 hrs Laboratory Tests Test 02/27/17 18:18 02/27/17 23:06 02/28/17 05:00 02/28/17 05:10 Bedside Glucose 130 177 240 H White Blood Count 10.2 # Red Blood Count 2.69 L Hemoglobin 8.4 L Hematocrit 27.3 L Mean Corpuscular Volume 101.5 H Mean Corpuscular Hemoglobin 31.2 Mean Corpuscular Hemoglobin Concent 30.8 L Red Cell Distribution Width 14.5 Platelet Count 138 L Mean Platelet Volume 11.1 H Neutrophils % 89.8 H Lymphocytes % 5.0 L Monocytes % 4.6 Eosinophils % 0.0 Basophils % 0.0 Nucleated Red Blood Cells % 0.0 Neutrophils # 9.2 H Lymphocytes # 0.5 L Monocytes # 0.5 Eosinophils # 0.0 Basophils # 0.0 Nucleated Red Blood Cells # 0.0 Sodium Level 141 Potassium Level 4.1 Chloride Level 97 Carbon Dioxide Level 26 Anion Gap 22 H Blood Urea Nitrogen 64 H Creatinine 5.01 H Glucose Level 204 Calcium Level 8.7 Phosphorus Level 6.8 H Magnesium Level 2.3 Test 02/28/17 07:00 02/28/17 12:14 02/28/17 12:21 Blood Gas Specimen Source Blood arterial Blood arterial Arterial Blood Date Drawn 02/28/2017 9:00:18 AM 02/28/2017 12:40:45 PM Arterial Blood pH (Temp corrected) 7.393 7.268 *L Arterial Blood pCO2 (Temp correct) 48.5 H 68.5 H Arterial Blood pO2 (Temp corrected) 77.2 L 58.3 L Arterial Blood HCO3 28.9 H 30.6 H Arterial Blood Base Excess 3.3 H 2.2 Arterial Blood Oxygen Saturation 95.2 87.5 L Giovanny Test ACCEPTAB ACCEPTAB Arterial Blood Gas Puncture Site Left Radial Left Radial Arterial Blood Carboxyhemoglobin 0.3 1.1 Arterial Blood Methemoglobin 0.5 0.3 Blood Gas A-a O2 Differential 79.7 H 75.1 H Oxyhemoglobin Percent 94.4 86.3 L Total Hemoglobin 11.4 L 11.7 L Blood Gas Temperature 37.0 37.0 Blood Gas Respiration Rate 16.0 Blood Gas Actual Respiration Rate 19 28 Blood Gas Modality VENT - AC VENT - CPAP FiO2 30.0 30.0 Blood Gas Tidal Volume 400.0 Blood Gas Low PEEP Setting 5.0 5.0 Blood Gas Notified Whom JLD JLD Blood Gas Notified Time 02/28/2017 9:12:54 AM 02/28/2017 12:59:19 PM Bedside Glucose 183 Blood Gas Pressure Support 10 Blood Gas Critical Value Read Back A HUNTER ALMONTE Medications Current Medications Cefepime HCl (Maxipime 1gm/50 ml (Pmx)) 50 ml @ 100 mls/hr Q24H IVPB Last administered on 02/27/17 17:07; Admin Dose 100 MLS/HR; Start 02/23/17 at 16:36 Ondansetron HCl (Zofran Inj) 4 mg Q6H PRN IV NAUSEA AND/OR VOMITING; Start 02/23 at 15:30 Diagnostic Test (Pha) (Accu-Chek) 1 ea 02 XX Last administered on 02/27/17 00: 56; Admin Dose 1 EA; Start 02/24/17 at 02:00 Insulin Aspart (Novolog Insulin Pen) NOVOLOG *MODERATE* ALGORITHM Q6 SC Last administered on 02/28/17 12:17; Admin Dose 4 UNIT; Start 02/23/17 at 18:00 Miscellaneous Information 1 ea NOTE XX ; Start 02/23/17 at 16:30 Glucose (Glutose) 15 gm Q15M PRN PO DECREASED GLUCOSE; Start 02/23/17 at 16:30 Glucose (Glutose) 22.5 gm Q15M PRN PO DECREASED GLUCOSE; Start 02/23/17 at 16:30 Dextrose (D50w Syringe) 25 ml Q15M PRN IV DECREASED GLUCOSE; Start 02/23/17 at 16:30 Dextrose (D50w Syringe) 50 ml Q15M PRN IV DECREASED GLUCOSE; Start 02/23/17 at 16:30 Glucagon (Glucagen) 1 mg Q15M PRN IM DECREASED GLUCOSE; Start 02/23/17 at 16:30 Glucose 15 gm 15 gm Q15M PRN BUCCAL DECREASED GLUCOSE; Start 02/23/17 at 16:30 Propofol 100 ml @ 2.07 mls/hr Q12H IV Last administered on 02/28/17 05:10; Admin Dose 10.35 MLS/HR; Start 02/23/17 at 18:30 Norepinephrine/ Dextrose (Levophed/D5W) 500 ml @ 0 mls/hr TITRATE IV Last administered on 02/24/17 08:55; Admin Dose 1.87 MLS/HR; Start 02/24/17 at 07:00 Methylprednisolone Sodium Succinate (Solu-Medrol) 40 mg Q8 IV Last administered on 02/28/17 13:25; Admin Dose 40 MG; Start 02/25/17 at 14:00 Latanoprost (Xalatan) 1 drop HS BOTH EYES Last administered on 02/27/17 20:41; Admin Dose 1 DROP; Start 02/25/17 at 21:00 Brimonidine Tartrate (Alphagan P 0.15%) 1 drop BID BOTH EYES Last administered on 02/28/17 09:28; Admin Dose 1 DROP; Start 02/25/17 at 21:00 Dorzolamide/ Timolol (Cosopt) 1 drop BID BOTH EYES Last administered on 09:28; Admin Dose 1 DROP; Start 02/25/17 at 21:00 Famotidine (Pepcid Iv) 20 mg DAILY IV Last administered on 02/28/17 09:27; Admin Dose 20 MG; Start 02/28/17 at 09:00 Assessment/Plan Chief Complaint/Hosp Course IMP: 1. Hypoxemic Respiratory Failure currently failed to wean off mechanical ventilation despite CPAP weaning trials. 2. s/p PEA arrest--etiology not entirely clear 3. ESRD on HD 4. Advanced ILD--consistent with chronic HP 5. Anemia likely of chronic disease. RECS: 1. Decrease sedation as tolerated 2. Continue AC mechanical ventilation. 3. Abx 4. HD in am 5. Minimize narcotics Patient failing CPAP trials. Family may be faced with difficult decision of extubation with palliative care measures in the next few days. I will discuss with family members. 35 min cc time Problems: GURU RANDOLPH MD, [facility] Feb 28, 2017 15:16
[2017-02-28] MEDS: CEFEPIME 1GM/50 ML (PMX) 50 ML IVPB SCH (16:54)
--- NOTE | 2017-02-28 18:45 | PN ---
Date/Time of Note Date/Time of Note DATE: 02/28/17 TIME: 18:42 Assessment/Plan VTE Prophylaxis VTE Prophylaxis Intervention: heparin Lines/Catheters IV C[facility]ter Type (from [facility]): PERMACATH Urinary Cath still in place: No Assessment/Plan Chief Complaint/Hosp Course 76 yo female with ESRD on HD, ILD, s/p cardiac arrest and with septic shock PULM: Acute hypoxemic respiratory failure, interstitial lung disease: - continue SBT and attempts at extubation, though looking like may not be possible RENAL: ESRD - Continue HD per renal CV: - Continue levophed for BP support - s/p cardiopulmonary arrest wtih ROSC - TTE with good LV function ID: Pneumonia: - Continue broad spectrum abx for VAP ENDO: DMII - Continue basal/bolus insulin DNR, palliative Problems: Subjective 24 Hr Interval Summary Free Text/Dictation Failed pressure support trial today Remains intubated Exam/Review of Systems Vital Signs Vitals Vital Signs Date Time Temp Pulse Resp B/P Pulse Ox O2 Delivery O2 Flow Rate FiO2 02/28/17 18:30 72 21 118/53 97 Mechanical Ventilator 02/28/17 18:00 98.3 02/28/17 17:30 30 Intake and Output 02/27/17 02/27/17 02/28/17 15:00 23:00 07:00 Intake Total 80.19 ml 634.52 ml 407.64 ml Output Total 0 ml 0 ml 0 ml Balance 80.19 ml 634.52 ml 407.64 ml Exam Intubated, sedated Lungs relatively clear anteriorly Heart sound normal Abdomen soft ntn d Results Result Diagram: 02/28/17 0500 02/28/17 0500 Results 24 hrs Laboratory Tests Test 02/27/17 23:06 02/28/17 05:00 02/28/17 05:10 02/28/17 07:00 Bedside Glucose 177 240 H White Blood Count 10.2 # Red Blood Count 2.69 L Hemoglobin 8.4 L Hematocrit 27.3 L Mean Corpuscular Volume 101.5 H Mean Corpuscular Hemoglobin 31.2 Mean Corpuscular Hemoglobin Concent 30.8 L Red Cell Distribution Width 14.5 Platelet Count 138 L Mean Platelet Volume 11.1 H Neutrophils % 89.8 H Lymphocytes % 5.0 L Monocytes % 4.6 Eosinophils % 0.0 Basophils % 0.0 Nucleated Red Blood Cells % 0.0 Neutrophils # 9.2 H Lymphocytes # 0.5 L Monocytes # 0.5 Eosinophils # 0.0 Basophils # 0.0 Nucleated Red Blood Cells # 0.0 Sodium Level 141 Potassium Level 4.1 Chloride Level 97 Carbon Dioxide Level 26 Anion Gap 22 H Blood Urea Nitrogen 64 H Creatinine 5.01 H Glucose Level 204 Calcium Level 8.7 Phosphorus Level 6.8 H Magnesium Level 2.3 Blood Gas Specimen Source Blood arterial Arterial Blood Date Drawn 02/28/2017 9:00:18 AM Arterial Blood pH (Temp corrected) 7.393 Arterial Blood pCO2 (Temp correct) 48.5 H Arterial Blood pO2 (Temp corrected) 77.2 L Arterial Blood HCO3 28.9 H Arterial Blood Base Excess 3.3 H Arterial Blood Oxygen Saturation 95.2 Giovanny Test ACCEPTAB Arterial Blood Gas Puncture Site Left Radial Arterial Blood Carboxyhemoglobin 0.3 Arterial Blood Methemoglobin 0.5 Blood Gas A-a O2 Differential 79.7 H Oxyhemoglobin Percent 94.4 Total Hemoglobin 11.4 L Blood Gas Temperature 37.0 Blood Gas Respiration Rate 16.0 Blood Gas Actual Respiration Rate 19 Blood Gas Modality VENT - AC FiO2 30.0 Blood Gas Tidal Volume 400.0 Blood Gas Low PEEP Setting 5.0 Blood Gas Notified Whom JLD Blood Gas Notified Time 02/28/2017 9:12:54 AM Test 02/28/17 12:14 02/28/17 12:21 02/28/17 18:15 Bedside Glucose 183 173 Blood Gas Specimen Source Blood arterial Arterial Blood Date Drawn 02/28/2017 12:40:45 PM Arterial Blood pH (Temp corrected) 7.268 *L Arterial Blood pCO2 (Temp correct) 68.5 H Arterial Blood pO2 (Temp corrected) 58.3 L Arterial Blood HCO3 30.6 H Arterial Blood Base Excess 2.2 Arterial Blood Oxygen Saturation 87.5 L Giovanny Test ACCEPTAB Arterial Blood Gas Puncture Site Left Radial Arterial Blood Carboxyhemoglobin 1.1 Arterial Blood Methemoglobin 0.3 Blood Gas A-a O2 Differential 75.1 H Oxyhemoglobin Percent 86.3 L Total Hemoglobin 11.7 L Blood Gas Temperature 37.0 Blood Gas Actual Respiration Rate 28 Blood Gas Modality VENT - CPAP FiO2 30.0 Blood Gas Low PEEP Setting 5.0 Blood Gas Pressure Support 10 Blood Gas Critical Value Read Back A HUNTER ALMONTE Blood Gas Notified Whom VALDEMARD Blood Gas Notified Time 02/28/2017 12:59:19 PM Medications Medications Current Medications Cefepime HCl (Maxipime 1gm/50 ml (Pmx)) 50 ml @ 100 mls/hr Q24H IVPB Last administered on 02/28/17 16:54; Admin Dose 100 MLS/HR; Start 02/23/17 at 16:36 Ondansetron HCl (Zofran Inj) 4 mg Q6H PRN IV NAUSEA AND/OR VOMITING; Start 02/23 at 15:30 Diagnostic Test (Pha) (Accu-Chek) 1 ea 02 XX Last administered on 02/27/17 00: 56; Admin Dose 1 EA; Start 02/24/17 at 02:00 Insulin Aspart (Novolog Insulin Pen) NOVOLOG *MODERATE* ALGORITHM Q6 SC Last administered on 02/28/17 18:19; Admin Dose 2 UNIT; Start 02/23/17 at 18:00 Miscellaneous Information 1 ea NOTE XX ; Start 02/23/17 at 16:30 Glucose (Glutose) 15 gm Q15M PRN PO DECREASED GLUCOSE; Start 02/23/17 at 16:30 Glucose (Glutose) 22.5 gm Q15M PRN PO DECREASED GLUCOSE; Start 02/23/17 at 16:30 Dextrose (D50w Syringe) 25 ml Q15M PRN IV DECREASED GLUCOSE; Start 02/23/17 at 16:30 Dextrose (D50w Syringe) 50 ml Q15M PRN IV DECREASED GLUCOSE; Start 02/23/17 at 16:30 Glucagon (Glucagen) 1 mg Q15M PRN IM DECREASED GLUCOSE; Start 02/23/17 at 16:30 Glucose 15 gm 15 gm Q15M PRN BUCCAL DECREASED GLUCOSE; Start 02/23/17 at 16:30 Propofol 100 ml @ 2.07 mls/hr Q12H IV Last administered on 02/28/17 05:10; Admin Dose 10.35 MLS/HR; Start 02/23/17 at 18:30 Norepinephrine/ Dextrose (Levophed/D5W) 500 ml @ 0 mls/hr TITRATE IV Last administered on 02/24/17 08:55; Admin Dose 1.87 MLS/HR; Start 02/24/17 at 07:00 Methylprednisolone Sodium Succinate (Solu-Medrol) 40 mg Q8 IV Last administered on 02/28/17 13:25; Admin Dose 40 MG; Start 02/25/17 at 14:00 Latanoprost (Xalatan) 1 drop HS BOTH EYES Last administered on 02/27/17 20:41; Admin Dose 1 DROP; Start 02/25/17 at 21:00 Brimonidine Tartrate (Alphagan P 0.15%) 1 drop BID BOTH EYES Last administered on 02/28/17 09:28; Admin Dose 1 DROP; Start 02/25/17 at 21:00 Dorzolamide/ Timolol (Cosopt) 1 drop BID BOTH EYES Last administered on 09:28; Admin Dose 1 DROP; Start 02/25/17 at 21:00 Famotidine (Pepcid Iv) 20 mg DAILY IV Last administered on 02/28/17 09:27; Admin Dose 20 MG; Start 02/28/17 at 09:00 SALEEM FUENTES MD Feb 28, 2017 18:45
[2017-02-28] MEDS: LATANOPROST 0.005% 2.5 ML OPH BOTH EYES SCH (20:13)
[2017-03-01] VITALS (55 sets, daily range): BP systolic 85–140; BP diastolic 39–57; PULSE 62–77; RESP 13–33
[2017-03-01] MEDS: INSULIN ASPART [NOVOLOG] 3 ML PEN SC SCH ×5 (00:23→23:42)
[2017-03-01] MEDS: ACCU-CHEK XX SCH (02:00)
[2017-03-01] MEDS: ALBUTEROL 18 GM INHALER INH SCH ×4 (02:02→20:11)
[2017-03-01] MEDS: IPRATROPIUM (HFA) 12.9 GM INHALER INH SCH ×4 (02:02→20:11)
[2017-03-01] MEDS: METHYLPREDNISOLONE 40 MG INJ IV SCH (05:20)
[2017-03-01 05:36] LABS: EOSINOPHILS % 0.1 % (0.0-7.0); HEMATOCRIT 28.2 % (37.0-47.0); LYMPHOCYTES # 0.6 10^3/ul (0.8-2.9); LYMPHOCYTES % 4.5 % (15.0-51.0); MEAN CORPUSCULAR HEMOGLOBIN 32.5 pg (29.0-33.0); MEAN CORPUSCULAR HGB CONC 31.9 g/dl (32.0-37.0); MEAN CORPUSCULAR VOLUME 101.8 fl (82.0-101.0); MEAN PLATELET VOLUME 11.3 fl (7.4-10.4); MONOCYTE # 0.7 10^3/ul (0.3-0.9); MONOCYTES % 5.3 % (0.0-11.0); NEUTROPHILS % 89.5 % (39.0-77.0); PLATELET COUNT 141 10^3/UL (140-415); RED BLOOD COUNT 2.77 10^6/ul (4.20-5.40); RED CELL DISTRIBUTION WIDTH 13.9 % (11.5-14.5); WHITE BLOOD COUNT 13.4 10^3/ul (4.8-10.8)
[2017-03-01 06:22] LABS: CALCIUM 8.8 mg/dl (8.4-10.2); CREATININE 3.73 mg/dl (0.44-1.00); MAGNESIUM 2.2 mg/dl (1.7-2.5); PHOSPHORUS 4.5 mg/dl (2.5-4.9); POTASSIUM 4.2 mmol/L (3.5-5.1)
[2017-03-01] MEDS: PROPOFOL 100 ML IV SCH ×3 (07:33→23:36)
--- NOTE | 2017-03-01 07:36 | CONS ---
Date/Time of Note Date/Time of Note DATE: 03/01/17 TIME: 07:34 Consult Date/Type/Reason Admit Date/Time Feb 23, 2017 at 14:20 Initial Consult Date 02/23/17 Type of Consultation: Pulmonary Ordering Provider: BRYAN FELDER MD Subjective CARDIOLOGY FOLLOW UP NOTE/ Critical care tessie: d/w staff and physicians. d/w family rhythm was reviewed. pt remains in NSR. pt remains intubated on vent . she has failed CPAP yesterday. BP has been stable. pt is able to follow basic commands. OBJECTIVE: General obese female started with intubation on the vent. HEENT: NC/AT. NECK: NO JVD. no stridor. CV: RRR. systolic murmur; no gallop or rubs. PULM: no wheezing or rhonchi anteriorly. GI: SOFT, NT, ND, no rebound or guarding Extremity: trace B/L LE edema. no clubbing. Vascular: R fem venous in place. no hematoma or bleeding neuro: follows basic commands. opens her eyes to verbal stimuli. Psych: calm now. rectal: deferred : normal echo personally reviewed: 1. Hyperdynamic left ventricular systolic function. Normal left ventricular cavity size. Mild concentric left ventricular hypertrophy. Ejection fraction is visually estimated at 70 %. Tissue Doppler/Mitral Doppler indices are consistent with impaired relaxation (Stage I diastolic dysfunction). 2. Normal right ventricular systolic function. Mild enlargement of right ventricle. 3. Mild mitral leaflet calcification. Mild mitral annular calcification. Trace mitral regurgitation. 4. Aortic sclerosis without stenosis. Trileaflet aortic valve. Moderate to severe aortic valve regurgitation. The regurgitation jet is eccentrically directed. 5. Normal appearance of the tricuspid valve. Estimated peak PA systolic pressure 62 mmHg. There is mild tricuspid regurgitation. 6. Normal IVC with respiratory collapse, however patient on ventilator. Objective Objective Vital Signs Date Time Temp Pulse Resp B/P Pulse Ox O2 Delivery O2 Flow Rate FiO2 03/01/17 06:00 66 19 112/45 99 Mechanical Ventilator 03/01/17 05:20 30 03/01/17 04:00 98.8 Intake and Output 02/28/17 02/28/17 03/01/17 15:00 23:00 07:00 Intake Total 768.31 ml 749.36 ml 816.24 ml Output Total 3000 ml 0 ml 0 ml Balance -2231.69 ml 749.36 ml 816.24 ml Results/Medications Result Diagram: 03/01/17 0400 03/01/17 0400 Results 24 hrs Laboratory Tests Test 02/28/17 12:14 02/28/17 12:21 02/28/17 18:15 02/28/17 19:35 Bedside Glucose 183 173 168 Blood Gas Specimen Source Blood arterial Arterial Blood Date Drawn 02/28/2017 12:40:45 PM Arterial Blood pH (Temp corrected) 7.268 *L Arterial Blood pCO2 (Temp correct) 68.5 H Arterial Blood pO2 (Temp corrected) 58.3 L Arterial Blood HCO3 30.6 H Arterial Blood Base Excess 2.2 Arterial Blood Oxygen Saturation 87.5 L Giovanny Test ACCEPTAB Arterial Blood Gas Puncture Site Left Radial Arterial Blood Carboxyhemoglobin 1.1 Arterial Blood Methemoglobin 0.3 Blood Gas A-a O2 Differential 75.1 H Oxyhemoglobin Percent 86.3 L Total Hemoglobin 11.7 L Blood Gas Temperature 37.0 Blood Gas Actual Respiration Rate 28 Blood Gas Modality VENT - CPAP FiO2 30.0 Blood Gas Low PEEP Setting 5.0 Blood Gas Pressure Support 10 Blood Gas Critical Value Read Back A HUNTER ALMONTE Blood Gas Notified Whom JLD Blood Gas Notified Time 02/28/2017 12:59:19 PM Test 03/01/17 00:15 03/01/17 04:00 03/01/17 04:32 Bedside Glucose 232 H 233 H White Blood Count 13.4 #H Red Blood Count 2.77 L Hemoglobin 9.0 L Hematocrit 28.2 L Mean Corpuscular Volume 101.8 H Mean Corpuscular Hemoglobin 32.5 Mean Corpuscular Hemoglobin Concent 31.9 L Red Cell Distribution Width 13.9 Platelet Count 141 Mean Platelet Volume 11.3 H Neutrophils % 89.5 H Lymphocytes % 4.5 L Monocytes % 5.3 Eosinophils % 0.1 Basophils % 0.0 Nucleated Red Blood Cells % 0.0 Neutrophils # 12.0 H Lymphocytes # 0.6 L Monocytes # 0.7 Eosinophils # 0.0 Basophils # 0.0 Nucleated Red Blood Cells # 0.0 Sodium Level 140 Potassium Level 4.2 Chloride Level 95 L Carbon Dioxide Level 29 Anion Gap 20 H Blood Urea Nitrogen 53 H Creatinine 3.73 #H Glucose Level 202 Calcium Level 8.8 Phosphorus Level 4.5 # Magnesium Level 2.2 Medications Current Medications Cefepime HCl (Maxipime 1gm/50 ml (Pmx)) 50 ml @ 100 mls/hr Q24H IVPB Last administered on 02/28/17 16:54; Admin Dose 100 MLS/HR; Start 02/23/17 at 16:36 Ondansetron HCl (Zofran Inj) 4 mg Q6H PRN IV NAUSEA AND/OR VOMITING; Start 02/23 at 15:30 Diagnostic Test (Pha) (Accu-Chek) 1 ea 02 XX Last administered on 02/27/17 00: 56; Admin Dose 1 EA; Start 02/24/17 at 02:00 Insulin Aspart (Novolog Insulin Pen) NOVOLOG *MODERATE* ALGORITHM Q6 SC Last administered on 03/01/17 05:27; Admin Dose 2 UNIT; Start 02/23/17 at 18:00 Miscellaneous Information 1 ea NOTE XX ; Start 02/23/17 at 16:30 Glucose (Glutose) 15 gm Q15M PRN PO DECREASED GLUCOSE; Start 02/23/17 at 16:30 Glucose (Glutose) 22.5 gm Q15M PRN PO DECREASED GLUCOSE; Start 02/23/17 at 16:30 Dextrose (D50w Syringe) 25 ml Q15M PRN IV DECREASED GLUCOSE; Start 02/23/17 at 16:30 Dextrose (D50w Syringe) 50 ml Q15M PRN IV DECREASED GLUCOSE; Start 02/23/17 at 16:30 Glucagon (Glucagen) 1 mg Q15M PRN IM DECREASED GLUCOSE; Start 02/23/17 at 16:30 Glucose 15 gm 15 gm Q15M PRN BUCCAL DECREASED GLUCOSE; Start 02/23/17 at 16:30 Propofol 100 ml @ 2.07 mls/hr Q12H IV Last administered on 02/28/17 23:17; Admin Dose 14.49 MLS/HR; Start 02/23/17 at 18:30 Norepinephrine/ Dextrose (Levophed/D5W) 500 ml @ 0 mls/hr TITRATE IV Last administered on 02/24/17 08:55; Admin Dose 1.87 MLS/HR; Start 02/24/17 at 07:00 Methylprednisolone Sodium Succinate (Solu-Medrol) 40 mg Q8 IV Last administered on 03/01/17 05:20; Admin Dose 40 MG; Start 02/25/17 at 14:00 Latanoprost (Xalatan) 1 drop HS BOTH EYES Last administered on 02/28/17 20:13; Admin Dose 1 DROP; Start 02/25/17 at 21:00 Brimonidine Tartrate (Alphagan P 0.15%) 1 drop BID BOTH EYES Last administered on 02/28/17 20:13; Admin Dose 1 DROP; Start 02/25/17 at 21:00 Dorzolamide/ Timolol (Cosopt) 1 drop BID BOTH EYES Last administered on 20:13; Admin Dose 1 DROP; Start 02/25/17 at 21:00 Famotidine (Pepcid Iv) 20 mg DAILY IV Last administered on 02/28/17 09:27; Admin Dose 20 MG; Start 02/28/17 at 09:00 Assessment/Plan Chief Complaint/Hosp Course 1. Cardiopulmonary arrest 2. Shock probably septic shock, pneumonia with GNR bacteremia: improving now 3. transient ST elevation on EKG patient is well with no significant flow- limiting obstruction on the coronary angiogram 4. Renal failure on dialysis 5. History of hypertension now hypotensive in shock 6. Diabetes 7. History of dyslipidemia 8. Hypoxemic respiratory failure currently intubated on the vent 9. Diarrhea 10. AI: mod/ severe: etiology unclear. no evidence of aortic dissection on CT chest. r/o endocarditis/ bacteremia. Recommendations:. off the Levophed now. hemodialysis per renal consult. cont Diabetic management. will defer to internal medicine. Antibiotic management as per internal medicine. Continue the vent support for now and try weaning if stable. (defer to pulm team. ). . cont ICU care and vent support More than 35 minutes of critical care time was reminded to increase patient excluding any procedures Thank you for his referral. I will continue to follow along with you. MALCOLM SANCHEZ MD [facility] Problems: MALCOLM SANCHEZ MD Mar 01, 2017 07:36
--- NOTE | 2017-03-01 08:42 | RADRPT ---
PROCEDURE: XR Chest. CLINICAL INDICATION: pna chf TECHNIQUE: Single frontal view of the chest was obtained COMPARISON: Chest x-ray 02/28/2017 FINDINGS: The endotracheal tube terminates approximately 3 cm above the young. The nasogastric tube and left- sided central venous catheter are stable in positions. The cardiac silhouette remains mildly enlarged. There are atherosclerotic calcifications of the aorta. Diffusely prominent interstitial markings with multifocal opacities scattered throughout both lungs, unchanged compared to prior study. No pneumothorax or significant pleural effusion is seen. There are degenerative changes of the spine. IMPRESSION: 1. Stable support lines/tubes. 2. Diffuse prominence of interstitial lung markings, suggesting underlying chronic lung disease. 3. Stable multifocal opacities scattered throughout both lungs which may represent pulmonary edema and / or infection. 4. Mild cardiomegaly. 5. Thoracic aortic atherosclerotic disease. RPTAT: EE Physician Ryan Date Time Electronically viewed and signed by Physician Ryan on 03/01/2017 08:41 KANG/
[2017-03-01] MEDS: FAMOTIDINE 20 MG INJ IV SCH (09:39)
[2017-03-01] MEDS: BRIMONIDINE 0.15% 5 ML OPH BOTH EYES SCH ×2 (09:40→21:10)
[2017-03-01] MEDS: DORZOLAMIDE/TIMOLOL 10 ML OPH BOTH EYES SCH ×2 (09:41→21:09)
--- NOTE | 2017-03-01 09:59 | CONS ---
Date/Time of Note Date/Time of Note DATE: 03/01/17 TIME: 09:58 Consult Date/Type/Reason Admit Date/Time Feb 23, 2017 at 14:20 Initial Consult Date 02/23/17 Type of Consultation: Pulmonary Ordering Provider: BRYAN FELDER MD Subjective Failed several CPAP trials. Remains intubated on mechanical ventilation. Objective Vital Signs Date Time Temp Pulse Resp B/P Pulse Ox O2 Delivery O2 Flow Rate FiO2 03/01/17 08:00 99.3 62 20 105/44 97 Mechanical Ventilator 03/01/17 07:25 30 Intake and Output 02/28/17 02/28/17 03/01/17 15:00 23:00 07:00 Intake Total 768.31 ml 749.36 ml 816.24 ml Output Total 3000 ml 0 ml 0 ml Balance -2231.69 ml 749.36 ml 816.24 ml Exam Exam PHYSICAL EXAMINATION GENERAL: Elderly lady opens eyes appears comfortable at rest VITAL SIGNS: see below. HEENT: Pupils equal, round, and reactive to light. CARDIAC: S1, S2, 1/6 systolic ejection murmur CHEST: Diminished air entry bilaterally with rhonchi ABDOMEN: Mildly distended. Bowel sounds present no guarding or rebound EXTREMITIES: No cyanosis, clubbing edema +1 NEUROLOGIC: Generalized weakness Results/Medications Result Diagram: 03/01/17 0400 03/01/17 0400 Results 24 hrs Laboratory Tests Test 02/28/17 12:14 02/28/17 12:21 02/28/17 18:15 02/28/17 19:35 Bedside Glucose 183 173 168 Blood Gas Specimen Source Blood arterial Arterial Blood Date Drawn 02/28/2017 12:40:45 PM Arterial Blood pH (Temp corrected) 7.268 *L Arterial Blood pCO2 (Temp correct) 68.5 H Arterial Blood pO2 (Temp corrected) 58.3 L Arterial Blood HCO3 30.6 H Arterial Blood Base Excess 2.2 Arterial Blood Oxygen Saturation 87.5 L Giovanny Test ACCEPTAB Arterial Blood Gas Puncture Site Left Radial Arterial Blood Carboxyhemoglobin 1.1 Arterial Blood Methemoglobin 0.3 Blood Gas A-a O2 Differential 75.1 H Oxyhemoglobin Percent 86.3 L Total Hemoglobin 11.7 L Blood Gas Temperature 37.0 Blood Gas Actual Respiration Rate 28 Blood Gas Modality VENT - CPAP FiO2 30.0 Blood Gas Low PEEP Setting 5.0 Blood Gas Pressure Support 10 Blood Gas Critical Value Read Back A HUNTER ALMONTE Blood Gas Notified Whom JLD Blood Gas Notified Time 02/28/2017 12:59:19 PM Test 03/01/17 00:15 03/01/17 04:00 03/01/17 04:32 Bedside Glucose 232 H 233 H White Blood Count 13.4 #H Red Blood Count 2.77 L Hemoglobin 9.0 L Hematocrit 28.2 L Mean Corpuscular Volume 101.8 H Mean Corpuscular Hemoglobin 32.5 Mean Corpuscular Hemoglobin Concent 31.9 L Red Cell Distribution Width 13.9 Platelet Count 141 Mean Platelet Volume 11.3 H Neutrophils % 89.5 H Lymphocytes % 4.5 L Monocytes % 5.3 Eosinophils % 0.1 Basophils % 0.0 Nucleated Red Blood Cells % 0.0 Neutrophils # 12.0 H Lymphocytes # 0.6 L Monocytes # 0.7 Eosinophils # 0.0 Basophils # 0.0 Nucleated Red Blood Cells # 0.0 Sodium Level 140 Potassium Level 4.2 Chloride Level 95 L Carbon Dioxide Level 29 Anion Gap 20 H Blood Urea Nitrogen 53 H Creatinine 3.73 #H Glucose Level 202 Calcium Level 8.8 Phosphorus Level 4.5 # Magnesium Level 2.2 Medications Current Medications Cefepime HCl (Maxipime 1gm/50 ml (Pmx)) 50 ml @ 100 mls/hr Q24H IVPB Last administered on 02/28/17 16:54; Admin Dose 100 MLS/HR; Start 02/23/17 at 16:36 Ondansetron HCl (Zofran Inj) 4 mg Q6H PRN IV NAUSEA AND/OR VOMITING; Start 02/23 at 15:30 Diagnostic Test (Pha) (Accu-Chek) 1 ea 02 XX Last administered on 02/27/17 00: 56; Admin Dose 1 EA; Start 02/24/17 at 02:00 Insulin Aspart (Novolog Insulin Pen) NOVOLOG *MODERATE* ALGORITHM Q6 SC Last administered on 03/01/17 05:27; Admin Dose 2 UNIT; Start 02/23/17 at 18:00 Miscellaneous Information 1 ea NOTE XX ; Start 02/23/17 at 16:30 Glucose (Glutose) 15 gm Q15M PRN PO DECREASED GLUCOSE; Start 02/23/17 at 16:30 Glucose (Glutose) 22.5 gm Q15M PRN PO DECREASED GLUCOSE; Start 02/23/17 at 16:30 Dextrose (D50w Syringe) 25 ml Q15M PRN IV DECREASED GLUCOSE; Start 02/23/17 at 16:30 Dextrose (D50w Syringe) 50 ml Q15M PRN IV DECREASED GLUCOSE; Start 02/23/17 at 16:30 Glucagon (Glucagen) 1 mg Q15M PRN IM DECREASED GLUCOSE; Start 02/23/17 at 16:30 Glucose 15 gm 15 gm Q15M PRN BUCCAL DECREASED GLUCOSE; Start 02/23/17 at 16:30 Propofol 100 ml @ 2.07 mls/hr Q12H IV Last administered on 03/01/17 07:33; Admin Dose 12.42 MLS/HR; Start 02/23/17 at 18:30 Norepinephrine/ Dextrose (Levophed/D5W) 500 ml @ 0 mls/hr TITRATE IV Last administered on 02/24/17 08:55; Admin Dose 1.87 MLS/HR; Start 02/24/17 at 07:00 Methylprednisolone Sodium Succinate (Solu-Medrol) 40 mg Q8 IV Last administered on 03/01/17 05:20; Admin Dose 40 MG; Start 02/25/17 at 14:00 Latanoprost (Xalatan) 1 drop HS BOTH EYES Last administered on 02/28/17 20:13; Admin Dose 1 DROP; Start 02/25/17 at 21:00 Brimonidine Tartrate (Alphagan P 0.15%) 1 drop BID BOTH EYES Last administered on 03/01/17 09:40; Admin Dose 1 DROP; Start 02/25/17 at 21:00 Dorzolamide/ Timolol (Cosopt) 1 drop BID BOTH EYES Last administered on 09:41; Admin Dose 1 DROP; Start 02/25/17 at 21:00 Famotidine (Pepcid Iv) 20 mg DAILY IV Last administered on 03/01/17 09:39; Admin Dose 20 MG; Start 02/28/17 at 09:00 Assessment/Plan Chief Complaint/Hosp Course IMP: 1. Hypoxemic Respiratory Failure currently failed to wean off mechanical ventilation despite CPAP weaning trials. 2. s/p PEA arrest--etiology not entirely clear 3. ESRD on HD 4. Advanced ILD--consistent with chronic HP 5. Anemia likely of chronic disease. RECS: 1. Decrease sedation as tolerated 2. Continue AC mechanical ventilation. Repeat CPAP trial again today. 3. Abx 4. HD volume removal if tolerated 5. Minimize narcotics 6. Decreased steroids Discussed with son at bedside. Patient will likely need inpatient hospice. Will have the vitas evaluation. Likely terminal extubation if not weanable in the next couple days. 35 min cc time Problems: GURU RANDOLPH MD, [facility] Mar 01, 2017 09:59
[2017-03-01] MEDS ORDERED: FUROSEMIDE 40 MG INJ IV SCH (10:00)
--- NOTE | 2017-03-01 13:57 | CONS ---
Date/Time of Note Date/Time of Note DATE: 03/01/17 TIME: 13:53 Assessment/Plan Assessment/Plan Chief Complaint/Hosp Course 76 Y/O with 1. ESRD on HD M/W/ with permacath 2 Hypoxemic Respiratory Failure currently failed to weak off 3. s/p PEA arrest--Cards on board 4. Advanced ILD--consistent with chronic HP 5. DM 6 Anemia Recs s/p HD done yesterday with removal of 2.5 L Pt started on Lasix however does not make urine, would not benefit from it , will plan for aggressive UF session tmw Rest management per ICU team Labs in am Problems: Consultation Date/Type/Reason Admit Date/Time Feb 23, 2017 at 14:20 Initial Consult Date 02/23/17 Type of Consultation: Nephrology Referring Provider: BRYAN FELDER MD Exam/Review of Systems Vital Signs Vitals Vital Signs Date Time Temp Pulse Resp B/P Pulse Ox O2 Delivery O2 Flow Rate FiO2 03/01/17 13:28 65 20 98 30 03/01/17 10:00 140/57 Mechanical Ventilator 03/01/17 08:00 99.3 Intake and Output 02/28/17 02/28/17 03/01/17 15:00 23:00 07:00 Intake Total 768.31 ml 749.36 ml 866.24 ml Output Total 3000 ml 0 ml 0 ml Balance -2231.69 ml 749.36 ml 866.24 ml Exam Constitutional: sedated currently Eyes: nl sclera Neck: supple Respiratory: diminished breath sounds with some rhonchi Cardiovascular: regular rate and rhythm Gastrointestinal: bowel sounds Extremities: pitting pedal edema Additional Comments Access: left permacath in place Results Result Diagram: 03/01/170 03/01/170 Results 24 hrs Laboratory Tests Test 02/28/17 18:15 02/28/17 19:35 03/01/17 00:15 03/01/17 04:00 Bedside Glucose 173 168 232 H White Blood Count 13.4 #H Red Blood Count 2.77 L Hemoglobin 9.0 L Hematocrit 28.2 L Mean Corpuscular Volume 101.8 H Mean Corpuscular Hemoglobin 32.5 Mean Corpuscular Hemoglobin Concent 31.9 L Red Cell Distribution Width 13.9 Platelet Count 141 Mean Platelet Volume 11.3 H Neutrophils % 89.5 H Lymphocytes % 4.5 L Monocytes % 5.3 Eosinophils % 0.1 Basophils % 0.0 Nucleated Red Blood Cells % 0.0 Neutrophils # 12.0 H Lymphocytes # 0.6 L Monocytes # 0.7 Eosinophils # 0.0 Basophils # 0.0 Nucleated Red Blood Cells # 0.0 Sodium Level 140 Potassium Level 4.2 Chloride Level 95 L Carbon Dioxide Level 29 Anion Gap 20 H Blood Urea Nitrogen 53 H Creatinine 3.73 #H Glucose Level 202 Calcium Level 8.8 Phosphorus Level 4.5 # Magnesium Level 2.2 Test 03/01/17 04:32 03/01/17 12:48 Bedside Glucose 233 H 245 H Medications Medications Current Medications Cefepime HCl (Maxipime 1gm/50 ml (Pmx)) 50 ml @ 100 mls/hr Q24H IVPB Last administered on 02/28/17 16:54; Admin Dose 100 MLS/HR; Start 02/23/17 at 16:36 Ondansetron HCl (Zofran Inj) 4 mg Q6H PRN IV NAUSEA AND/OR VOMITING; Start 02/23 at 15:30 Diagnostic Test (Pha) (Accu-Chek) 1 ea 02 XX Last administered on 02/27/17 00: 56; Admin Dose 1 EA; Start 02/24/17 at 02:00 Insulin Aspart (Novolog Insulin Pen) NOVOLOG *MODERATE* ALGORITHM Q6 SC Last administered on 03/01/17 12:51; Admin Dose 6 UNIT; Start 02/23/17 at 18:00 Miscellaneous Information 1 ea NOTE XX ; Start 02/23/17 at 16:30 Glucose (Glutose) 15 gm Q15M PRN PO DECREASED GLUCOSE; Start 02/23/17 at 16:30 Glucose (Glutose) 22.5 gm Q15M PRN PO DECREASED GLUCOSE; Start 02/23/17 at 16:30 Dextrose (D50w Syringe) 25 ml Q15M PRN IV DECREASED GLUCOSE; Start 02/23/17 at 16:30 Dextrose (D50w Syringe) 50 ml Q15M PRN IV DECREASED GLUCOSE; Start 02/23/17 at 16:30 Glucagon (Glucagen) 1 mg Q15M PRN IM DECREASED GLUCOSE; Start 02/23/17 at 16:30 Glucose 15 gm 15 gm Q15M PRN BUCCAL DECREASED GLUCOSE; Start 02/23/17 at 16:30 Propofol 100 ml @ 2.07 mls/hr Q12H IV Last administered on 03/01/17 07:33; Admin Dose 12.42 MLS/HR; Start 02/23/17 at 18:30 Norepinephrine/ Dextrose (Levophed/D5W) 500 ml @ 0 mls/hr TITRATE IV Last administered on 02/24/17 08:55; Admin Dose 1.87 MLS/HR; Start 02/24/17 at 07:00 Latanoprost (Xalatan) 1 drop HS BOTH EYES Last administered on 02/28/17 20:13; Admin Dose 1 DROP; Start 02/25/17 at 21:00 Brimonidine Tartrate (Alphagan P 0.15%) 1 drop BID BOTH EYES Last administered on 03/01/17 09:40; Admin Dose 1 DROP; Start 02/25/17 at 21:00 Dorzolamide/ Timolol (Cosopt) 1 drop BID BOTH EYES Last administered on 09:41; Admin Dose 1 DROP; Start 02/25/17 at 21:00 Famotidine (Pepcid Iv) 20 mg DAILY IV Last administered on 03/01/17 09:39; Admin Dose 20 MG; Start 02/28/17 at 09:00 Methylprednisolone Sodium Succinate (Solu-Medrol) 40 mg DAILY IV ; Start at 09:00 CHETNA DACOSTA MD Mar 01, 2017 13:57
[2017-03-01] MEDS: CEFEPIME 1GM/50 ML (PMX) 50 ML IVPB SCH (16:43)
--- NOTE | 2017-03-01 17:38 | PN ---
Date/Time of Note Date/Time of Note DATE: 03/01/17 TIME: 17:37 Assessment/Plan VTE Prophylaxis VTE Prophylaxis Intervention: heparin Lines/Catheters IV [facility] Peripheral IV Urinary Cath still in place: No Assessment/Plan Chief Complaint/Hosp Course 76 yo female with ESRD on HD, ILD, s/p cardiac arrest and with septic shock PULM: Acute hypoxemic respiratory failure, interstitial lung disease: - continue SBT and attempts at extubation, though looking like may not be possible RENAL: ESRD - Continue HD per renal CV: - Continue levophed for BP support - s/p cardiopulmonary arrest wtih ROSC - TTE with good LV function ID: Pneumonia: - Continue broad spectrum abx for VAP ENDO: DMII - Continue basal/bolus insulin DNR, palliative Problems: Subjective 24 Hr Interval Summary Free Text/Dictation No change to clinical status Unable to be weaned from vent Exam/Review of Systems Vital Signs Vitals Vital Signs Date Time Temp Pulse Resp B/P Pulse Ox O2 Delivery O2 Flow Rate FiO2 03/01/17 16:00 71 03/01/17 16:00 98.5 22 124/49 97 Mechanical Ventilator 03/01/17 15:20 30 Intake and Output 02/28/17 02/28/17 03/01/17 14:59 22:59 06:59 Intake Total 768.31 ml 745.22 ml 880.73 ml Output Total 3000 ml 0 ml 0 ml Balance -2231.69 ml 745.22 ml 880.73 ml Results Result Diagram: 03/01/17 0400 03/01/17 0400 Results 24 hrs Laboratory Tests Test 02/28/17 18:15 02/28/17 19:35 03/01/17 00:15 03/01/17 04:00 Bedside Glucose 173 168 232 H White Blood Count 13.4 #H Red Blood Count 2.77 L Hemoglobin 9.0 L Hematocrit 28.2 L Mean Corpuscular Volume 101.8 H Mean Corpuscular Hemoglobin 32.5 Mean Corpuscular Hemoglobin Concent 31.9 L Red Cell Distribution Width 13.9 Platelet Count 141 Mean Platelet Volume 11.3 H Neutrophils % 89.5 H Lymphocytes % 4.5 L Monocytes % 5.3 Eosinophils % 0.1 Basophils % 0.0 Nucleated Red Blood Cells % 0.0 Neutrophils # 12.0 H Lymphocytes # 0.6 L Monocytes # 0.7 Eosinophils # 0.0 Basophils # 0.0 Nucleated Red Blood Cells # 0.0 Sodium Level 140 Potassium Level 4.2 Chloride Level 95 L Carbon Dioxide Level 29 Anion Gap 20 H Blood Urea Nitrogen 53 H Creatinine 3.73 #H Glucose Level 202 Calcium Level 8.8 Phosphorus Level 4.5 # Magnesium Level 2.2 Test 03/01/17 04:32 03/01/17 12:48 Bedside Glucose 233 H 245 H Medications Medications Current Medications Cefepime HCl (Maxipime 1gm/50 ml (Pmx)) 50 ml @ 100 mls/hr Q24H IVPB Last administered on 03/01/17 16:43; Admin Dose 100 MLS/HR; Start 02/23/17 at 16:36 Ondansetron HCl (Zofran Inj) 4 mg Q6H PRN IV NAUSEA AND/OR VOMITING; Start 02/23 at 15:30 Diagnostic Test (Pha) (Accu-Chek) 1 ea 02 XX Last administered on 02/27/17 00: 56; Admin Dose 1 EA; Start 02/24/17 at 02:00 Insulin Aspart (Novolog Insulin Pen) NOVOLOG *MODERATE* ALGORITHM Q6 SC Last administered on 03/01/17 12:51; Admin Dose 6 UNIT; Start 02/23/17 at 18:00 Miscellaneous Information 1 ea NOTE XX ; Start 02/23/17 at 16:30 Glucose (Glutose) 15 gm Q15M PRN PO DECREASED GLUCOSE; Start 02/23/17 at 16:30 Glucose (Glutose) 22.5 gm Q15M PRN PO DECREASED GLUCOSE; Start 02/23/17 at 16:30 Dextrose (D50w Syringe) 25 ml Q15M PRN IV DECREASED GLUCOSE; Start 02/23/17 at 16:30 Dextrose (D50w Syringe) 50 ml Q15M PRN IV DECREASED GLUCOSE; Start 02/23/17 at 16:30 Glucagon (Glucagen) 1 mg Q15M PRN IM DECREASED GLUCOSE; Start 02/23/17 at 16:30 Glucose 15 gm 15 gm Q15M PRN BUCCAL DECREASED GLUCOSE; Start 02/23/17 at 16:30 Propofol 100 ml @ 2.07 mls/hr Q12H IV Last administered on 03/01/17 07:33; Admin Dose 12.42 MLS/HR; Start 02/23/17 at 18:30 Norepinephrine/ Dextrose (Levophed/D5W) 500 ml @ 0 mls/hr TITRATE IV Last administered on 02/24/17 08:55; Admin Dose 1.87 MLS/HR; Start 02/24/17 at 07:00 Latanoprost (Xalatan) 1 drop HS BOTH EYES Last administered on 02/28/17 20:13; Admin Dose 1 DROP; Start 02/25/17 at 21:00 Brimonidine Tartrate (Alphagan P 0.15%) 1 drop BID BOTH EYES Last administered on 03/01/17 09:40; Admin Dose 1 DROP; Start 02/25/17 at 21:00 Dorzolamide/ Timolol (Cosopt) 1 drop BID BOTH EYES Last administered on 09:41; Admin Dose 1 DROP; Start 02/25/17 at 21:00 Famotidine (Pepcid Iv) 20 mg DAILY IV Last administered on 03/01/17 09:39; Admin Dose 20 MG; Start 02/28/17 at 09:00 Methylprednisolone Sodium Succinate (Solu-Medrol) 40 mg DAILY IV ; Start at 09:00 SALEEM FUENTES MD Mar 01, 2017 17:38
[2017-03-01] MEDS: LATANOPROST 0.005% 2.5 ML OPH BOTH EYES SCH (21:09)
[2017-03-02] VITALS (54 sets, daily range): BP systolic 100–144; BP diastolic 41–57; PULSE 59–82; RESP 16–30
[2017-03-02] MEDS: IPRATROPIUM (HFA) 12.9 GM INHALER INH SCH ×4 (01:18→20:13)
[2017-03-02] MEDS: ALBUTEROL 18 GM INHALER INH SCH ×4 (01:18→20:13)
[2017-03-02] MEDS: ACCU-CHEK XX SCH (01:58)
[2017-03-02] MEDS: INSULIN ASPART [NOVOLOG] 3 ML PEN SC SCH ×4 (05:52→23:59)
[2017-03-02 05:54] LABS: BASOPHILS % 0.1 % (0.0-2.0); EOSINOPHILS % 6.6 % (0.0-7.0); HEMATOCRIT 28.4 % (37.0-47.0); HEMOGLOBIN 9.3 g/dl (12.0-16.0); LYMPHOCYTES % 6.4 % (15.0-51.0); MEAN CORPUSCULAR HEMOGLOBIN 32.9 pg (29.0-33.0); MEAN CORPUSCULAR HGB CONC 32.7 g/dl (32.0-37.0); MEAN CORPUSCULAR VOLUME 100.4 fl (82.0-101.0); MEAN PLATELET VOLUME 10.7 fl (7.4-10.4); MONOCYTE # 1.1 10^3/ul (0.3-0.9); MONOCYTES % 7.6 % (0.0-11.0); NEUTROPHIL # 11.8 10^3/ul (1.6-7.5); PLATELET COUNT 143 10^3/UL (140-415); RED BLOOD COUNT 2.83 10^6/ul (4.20-5.40); RED CELL DISTRIBUTION WIDTH 13.9 % (11.5-14.5); WHITE BLOOD COUNT 15.1 10^3/ul (4.8-10.8)
[2017-03-02] MEDS: PROPOFOL 100 ML IV SCH ×3 (05:55→21:41)
[2017-03-02 06:36] LABS: CALCIUM 8.7 mg/dl (8.4-10.2); CREATININE 4.75 mg/dl (0.44-1.00); MAGNESIUM 2.2 mg/dl (1.7-2.5); PHOSPHORUS 3.7 mg/dl (2.5-4.9)
[2017-03-02] MEDS: METHYLPREDNISOLONE 40 MG INJ IV SCH (09:29)
[2017-03-02] MEDS: FAMOTIDINE 20 MG INJ IV SCH (09:29)
[2017-03-02] MEDS: BRIMONIDINE 0.15% 5 ML OPH BOTH EYES SCH ×2 (09:30→20:24)
[2017-03-02] MEDS: DORZOLAMIDE/TIMOLOL 10 ML OPH BOTH EYES SCH ×2 (09:30→20:26)
--- NOTE | 2017-03-02 11:30 | CONS ---
Date/Time of Note Date/Time of Note DATE: 03/02/17 TIME: 11:28 Assessment/Plan Assessment/Plan Chief Complaint/Hosp Course 1. ESRD 2. DM TYPE ii UNCONTROLLED 3. CAD 4. S/P CARDIOPULMONARY ARREST 5. Anemia 6. Overweight Problems: Additional Assessment/Plan 1. Possible hospice today 2. HD continuation is not determined yet Consultation Date/Type/Reason Admit Date/Time Feb 23, 2017 at 14:20 Initial Consult Date 02/23/17 Type of Consultation: Nephrology Reason for Consultation Dr Borden Referring Provider: BRYAN FELDER MD 24 HR Interval Summary Subjective hx not possible: pt non-verbal, pt critical status Exam/Review of Systems Vital Signs Vitals Vital Signs Date Time Temp Pulse Resp B/P Pulse Ox O2 Delivery O2 Flow Rate FiO2 03/02/17 11:00 71 19 112/49 97 Mechanical Ventilator 03/02/17 08:00 30 03/02/17 08:00 98.2 Intake and Output 03/01/17 03/01/17 03/02/17 15:00 23:00 07:00 Intake Total 624.52 ml 724.49 ml 912 ml Output Total 0 ml 0 ml 0 ml Balance 624.52 ml 724.49 ml 912 ml Exam Neck: supple Respiratory: diminished breath sounds Gastrointestinal: soft Genitourinary - Female: nl external genitalia Neurological: unresponsive Results Result Diagram: 03/02/17 0449 03/02/17 0449 Results 24 hrs Laboratory Tests Test 03/01/17 12:48 03/01/17 17:50 03/01/17 23:40 03/02/17 04:49 Bedside Glucose 245 H 183 153 White Blood Count 15.1 H Red Blood Count 2.83 L Hemoglobin 9.3 L Hematocrit 28.4 L Mean Corpuscular Volume 100.4 Mean Corpuscular Hemoglobin 32.9 Mean Corpuscular Hemoglobin Concent 32.7 Red Cell Distribution Width 13.9 Platelet Count 143 Mean Platelet Volume 10.7 H Neutrophils % 78.0 H Lymphocytes % 6.4 L Monocytes % 7.6 Eosinophils % 6.6 Basophils % 0.1 Nucleated Red Blood Cells % 0.0 Neutrophils # 11.8 H Lymphocytes # 1.0 Monocytes # 1.1 H Eosinophils # 1.0 H Basophils # 0.0 Nucleated Red Blood Cells # 0.0 Sodium Level 139 Potassium Level 4.0 Chloride Level 94 L Carbon Dioxide Level 27 Anion Gap 22 H Blood Urea Nitrogen 80 H Creatinine 4.75 #H Glucose Level 148 # Calcium Level 8.7 Phosphorus Level 3.7 Magnesium Level 2.2 Test 03/02/17 05:46 Bedside Glucose 187 Medications Medications Current Medications Cefepime HCl (Maxipime 1gm/50 ml (Pmx)) 50 ml @ 100 mls/hr Q24H IVPB Last administered on 03/01/17 16:43; Admin Dose 100 MLS/HR; Start 02/23/17 at 16:36 Ondansetron HCl (Zofran Inj) 4 mg Q6H PRN IV NAUSEA AND/OR VOMITING; Start 02/23 at 15:30 Diagnostic Test (Pha) (Accu-Chek) 1 ea 02 XX Last administered on 02/27/17 00: 56; Admin Dose 1 EA; Start 02/24/17 at 02:00 Insulin Aspart (Novolog Insulin Pen) NOVOLOG *MODERATE* ALGORITHM Q6 SC Last administered on 03/02/17 05:52; Admin Dose 1 UNIT; Start 02/23/17 at 18:00 Miscellaneous Information 1 ea NOTE XX ; Start 02/23/17 at 16:30 Glucose (Glutose) 15 gm Q15M PRN PO DECREASED GLUCOSE; Start 02/23/17 at 16:30 Glucose (Glutose) 22.5 gm Q15M PRN PO DECREASED GLUCOSE; Start 02/23/17 at 16:30 Dextrose (D50w Syringe) 25 ml Q15M PRN IV DECREASED GLUCOSE; Start 02/23/17 at 16:30 Dextrose (D50w Syringe) 50 ml Q15M PRN IV DECREASED GLUCOSE; Start 02/23/17 at 16:30 Glucagon (Glucagen) 1 mg Q15M PRN IM DECREASED GLUCOSE; Start 02/23/17 at 16:30 Glucose 15 gm 15 gm Q15M PRN BUCCAL DECREASED GLUCOSE; Start 02/23/17 at 16:30 Propofol 100 ml @ 2.07 mls/hr Q12H IV Last administered on 03/02/17 05:55; Admin Dose 14.49 MLS/HR; Start 02/23/17 at 18:30 Norepinephrine/ Dextrose (Levophed/D5W) 500 ml @ 0 mls/hr TITRATE IV Last administered on 02/24/17 08:55; Admin Dose 1.87 MLS/HR; Start 02/24/17 at 07:00 Latanoprost (Xalatan) 1 drop HS BOTH EYES Last administered on 03/01/17 21:09 ; Admin Dose 1 DROP; Start 02/25/17 at 21:00 Brimonidine Tartrate (Alphagan P 0.15%) 1 drop BID BOTH EYES Last administered on 03/02/17 09:30; Admin Dose 1 DROP; Start 02/25/17 at 21:00 Dorzolamide/ Timolol (Cosopt) 1 drop BID BOTH EYES Last administered on 09:30; Admin Dose 1 DROP; Start 02/25/17 at 21:00 Famotidine (Pepcid Iv) 20 mg DAILY IV Last administered on 03/02/17 09:29; Admin Dose 20 MG; Start 02/28/17 at 09:00 Methylprednisolone Sodium Succinate (Solu-Medrol) 40 mg DAILY IV Last administered on 03/02/17 09:29; Admin Dose 40 MG; Start 03/02/17 at 09:00 ANDREA BERG Mar 02, 2017 11:30
--- NOTE | 2017-03-02 14:26 | CONS ---
Date/Time of Note Date/Time of Note DATE: 03/02/17 TIME: 14:24 Consult Date/Type/Reason Admit Date/Time Feb 23, 2017 at 14:20 Initial Consult Date 02/23/17 Type of Consultation: Pulmonary Ordering Provider: BRYAN FELDER MD Subjective Patient intubated on mechanical ventilation. Failed several weaning trials. Hospice evaluation today. Objective Vital Signs Date Time Temp Pulse Resp B/P Pulse Ox O2 Delivery O2 Flow Rate FiO2 03/02/17 13:00 75 23 127/41 94 Mechanical Ventilator 03/02/17 08:00 30 03/02/17 08:00 98.2 Intake and Output 03/01/17 03/01/17 03/02/17 15:00 23:00 07:00 Intake Total 624.52 ml 724.49 ml 912 ml Output Total 0 ml 0 ml 0 ml Balance 624.52 ml 724.49 ml 912 ml Exam PHYSICAL EXAMINATION GENERAL: Elderly lady orally intubated on mechanical ventilation VITAL SIGNS: see below. HEENT: Pupils equal, round, and reactive to light. CARDIAC: S1, S2, systolic ejection murmur. CHEST: Diminished air entry bilaterally with rhonchi ABDOMEN: Mildly distended. Bowel sounds present no guarding or rebound EXTREMITIES: No cyanosis, clubbing edema +1 NEUROLOGIC: Generalized weakness Results/Medications Result Diagram: 03/02/179 03/02/179 Results 24 hrs Laboratory Tests Test 03/01/17 17:50 03/01/17 23:40 03/02/17 04:49 03/02/17 05:46 Bedside Glucose 183 153 187 White Blood Count 15.1 H Red Blood Count 2.83 L Hemoglobin 9.3 L Hematocrit 28.4 L Mean Corpuscular Volume 100.4 Mean Corpuscular Hemoglobin 32.9 Mean Corpuscular Hemoglobin Concent 32.7 Red Cell Distribution Width 13.9 Platelet Count 143 Mean Platelet Volume 10.7 H Neutrophils % 78.0 H Lymphocytes % 6.4 L Monocytes % 7.6 Eosinophils % 6.6 Basophils % 0.1 Nucleated Red Blood Cells % 0.0 Neutrophils # 11.8 H Lymphocytes # 1.0 Monocytes # 1.1 H Eosinophils # 1.0 H Basophils # 0.0 Nucleated Red Blood Cells # 0.0 Sodium Level 139 Potassium Level 4.0 Chloride Level 94 L Carbon Dioxide Level 27 Anion Gap 22 H Blood Urea Nitrogen 80 H Creatinine 4.75 #H Glucose Level 148 # Calcium Level 8.7 Phosphorus Level 3.7 Magnesium Level 2.2 Test 03/02/17 12:07 Bedside Glucose 231 H Medications Current Medications Cefepime HCl (Maxipime 1gm/50 ml (Pmx)) 50 ml @ 100 mls/hr Q24H IVPB Last administered on 03/01/17 16:43; Admin Dose 100 MLS/HR; Start 02/23/17 at 16:36 Ondansetron HCl (Zofran Inj) 4 mg Q6H PRN IV NAUSEA AND/OR VOMITING; Start 02/23 at 15:30 Diagnostic Test (Pha) (Accu-Chek) 1 ea 02 XX Last administered on 02/27/17 00: 56; Admin Dose 1 EA; Start 02/24/17 at 02:00 Insulin Aspart (Novolog Insulin Pen) NOVOLOG *MODERATE* ALGORITHM Q6 SC Last administered on 03/02/17 12:10; Admin Dose 6 UNIT; Start 02/23/17 at 18:00 Miscellaneous Information 1 ea NOTE XX ; Start 02/23/17 at 16:30 Glucose (Glutose) 15 gm Q15M PRN PO DECREASED GLUCOSE; Start 02/23/17 at 16:30 Glucose (Glutose) 22.5 gm Q15M PRN PO DECREASED GLUCOSE; Start 02/23/17 at 16:30 Dextrose (D50w Syringe) 25 ml Q15M PRN IV DECREASED GLUCOSE; Start 02/23/17 at 16:30 Dextrose (D50w Syringe) 50 ml Q15M PRN IV DECREASED GLUCOSE; Start 02/23/17 at 16:30 Glucagon (Glucagen) 1 mg Q15M PRN IM DECREASED GLUCOSE; Start 02/23/17 at 16:30 Glucose 15 gm 15 gm Q15M PRN BUCCAL DECREASED GLUCOSE; Start 02/23/17 at 16:30 Propofol 100 ml @ 2.07 mls/hr Q12H IV Last administered on 03/02/17 13:14; Admin Dose 12.42 MLS/HR; Start 02/23/17 at 18:30 Norepinephrine/ Dextrose (Levophed/D5W) 500 ml @ 0 mls/hr TITRATE IV Last administered on 8/5/17at 08:55; Admin Dose 1.87 MLS/HR; Start 02/24/17 at 07:00 Latanoprost (Xalatan) 1 drop HS BOTH EYES Last administered on 03/01/17 21:09 ; Admin Dose 1 DROP; Start 02/25/17 at 21:00 Brimonidine Tartrate (Alphagan P 0.15%) 1 drop BID BOTH EYES Last administered on 03/02/17 09:30; Admin Dose 1 DROP; Start 02/25/17 at 21:00 Dorzolamide/ Timolol (Cosopt) 1 drop BID BOTH EYES Last administered on 09:30; Admin Dose 1 DROP; Start 02/25/17 at 21:00 Famotidine (Pepcid Iv) 20 mg DAILY IV Last administered on 03/02/17 09:29; Admin Dose 20 MG; Start 02/28/17 at 09:00 Methylprednisolone Sodium Succinate (Solu-Medrol) 40 mg DAILY IV Last administered on 03/02/17 09:29; Admin Dose 40 MG; Start 03/02/17 at 09:00 Assessment/Plan Chief Complaint/Hosp Course IMP: 1. Hypoxemic Respiratory Failure currently failed to wean off mechanical ventilation 2. s/p PEA arrest--etiology not entirely clear 3. ESRD on HD 4. Advanced ILD--consistent with chronic HP 5. Anemia likely of chronic disease. RECS: 1. Decrease sedation as tolerated 2. Continue AC mechanical ventilation unlikely to be safely weaned off mechanical ventilation 3. Abx 4. HD volume removal if tolerated 5. Minimize narcotics 6. Decreased steroids Hospice evaluation, discussed with hospice coordinators. Family considering plan of care. 35 min cc time Problems: GURU RANDOLPH MD, [facility] Mar 02, 2017 14:26
--- NOTE | 2017-03-02 14:28 | CONS ---
Date/Time of Note Date/Time of Note DATE: 03/02/17 TIME: 14:26 Consult Date/Type/Reason Admit Date/Time Feb 23, 2017 at 14:20 Initial Consult Date 02/23/17 Type of Consultation: CARDIOLOGY Ordering Provider: MATEUSZ BOYLE MD Subjective CARDIOLOGY FOLLOW UP NOTE/ Critical care tessie: d/w staff and physicians. d/w family including daughter in law rhythm was reviewed. pt remains in NSR. pt remains intubated on vent . BP has been stable. pt is able to follow basic commands. OBJECTIVE: General obese female started with intubation on the vent. HEENT: NC/AT. NECK: NO JVD. no stridor. CV: RRR. systolic murmur; no gallop or rubs. PULM: no wheezing or rhonchi anteriorly. GI: SOFT, NT, ND, no rebound or guarding Extremity: trace B/L LE edema. no clubbing. Vascular: R fem venous in place. no hematoma or bleeding neuro: sedated now. Psych: calm now. rectal: deferred : normal echo personally reviewed: 1. Hyperdynamic left ventricular systolic function. Normal left ventricular cavity size. Mild concentric left ventricular hypertrophy. Ejection fraction is visually estimated at 70 %. Tissue Doppler/Mitral Doppler indices are consistent with impaired relaxation (Stage I diastolic dysfunction). 2. Normal right ventricular systolic function. Mild enlargement of right ventricle. 3. Mild mitral leaflet calcification. Mild mitral annular calcification. Trace mitral regurgitation. 4. Aortic sclerosis without stenosis. Trileaflet aortic valve. Moderate to severe aortic valve regurgitation. The regurgitation jet is eccentrically directed. 5. Normal appearance of the tricuspid valve. Estimated peak PA systolic pressure 62 mmHg. There is mild tricuspid regurgitation. 6. Normal IVC with respiratory collapse, however patient on ventilator. Objective Vital Signs Date Time Temp Pulse Resp B/P Pulse Ox O2 Delivery O2 Flow Rate FiO2 03/02/17 13:00 75 23 127/41 94 Mechanical Ventilator 03/02/17 08:00 30 03/02/17 08:00 98.2 Intake and Output 03/01/17 03/01/17 03/02/17 15:00 23:00 07:00 Intake Total 624.52 ml 724.49 ml 912 ml Output Total 0 ml 0 ml 0 ml Balance 624.52 ml 724.49 ml 912 ml Results/Medications Result Diagram: 03/02/17 0449 03/02/17 0449 Results 24 hrs Laboratory Tests Test 03/01/17 17:50 03/01/17 23:40 03/02/17 04:49 03/02/17 05:46 Bedside Glucose 183 153 187 White Blood Count 15.1 H Red Blood Count 2.83 L Hemoglobin 9.3 L Hematocrit 28.4 L Mean Corpuscular Volume 100.4 Mean Corpuscular Hemoglobin 32.9 Mean Corpuscular Hemoglobin Concent 32.7 Red Cell Distribution Width 13.9 Platelet Count 143 Mean Platelet Volume 10.7 H Neutrophils % 78.0 H Lymphocytes % 6.4 L Monocytes % 7.6 Eosinophils % 6.6 Basophils % 0.1 Nucleated Red Blood Cells % 0.0 Neutrophils # 11.8 H Lymphocytes # 1.0 Monocytes # 1.1 H Eosinophils # 1.0 H Basophils # 0.0 Nucleated Red Blood Cells # 0.0 Sodium Level 139 Potassium Level 4.0 Chloride Level 94 L Carbon Dioxide Level 27 Anion Gap 22 H Blood Urea Nitrogen 80 H Creatinine 4.75 #H Glucose Level 148 # Calcium Level 8.7 Phosphorus Level 3.7 Magnesium Level 2.2 Test 03/02/17 12:07 Bedside Glucose 231 H Medications Current Medications Cefepime HCl (Maxipime 1gm/50 ml (Pmx)) 50 ml @ 100 mls/hr Q24H IVPB Last administered on 03/01/17 16:43; Admin Dose 100 MLS/HR; Start 02/23/17 at 16:36 Ondansetron HCl (Zofran Inj) 4 mg Q6H PRN IV NAUSEA AND/OR VOMITING; Start 02/23 at 15:30 Diagnostic Test (Pha) (Accu-Chek) 1 ea 02 XX Last administered on 02/27/17 00: 56; Admin Dose 1 EA; Start 02/24/17 at 02:00 Insulin Aspart (Novolog Insulin Pen) NOVOLOG *MODERATE* ALGORITHM Q6 SC Last administered on 03/02/17 12:10; Admin Dose 6 UNIT; Start 02/23/17 at 18:00 Miscellaneous Information 1 ea NOTE XX ; Start 02/23/17 at 16:30 Glucose (Glutose) 15 gm Q15M PRN PO DECREASED GLUCOSE; Start 02/23/17 at 16:30 Glucose (Glutose) 22.5 gm Q15M PRN PO DECREASED GLUCOSE; Start 02/23/17 at 16:30 Dextrose (D50w Syringe) 25 ml Q15M PRN IV DECREASED GLUCOSE; Start 02/23/17 at 16:30 Dextrose (D50w Syringe) 50 ml Q15M PRN IV DECREASED GLUCOSE; Start 02/23/17 at 16:30 Glucagon (Glucagen) 1 mg Q15M PRN IM DECREASED GLUCOSE; Start 02/23/17 at 16:30 Glucose 15 gm 15 gm Q15M PRN BUCCAL DECREASED GLUCOSE; Start 02/23/17 at 16:30 Propofol 100 ml @ 2.07 mls/hr Q12H IV Last administered on 03/02/17 13:14; Admin Dose 12.42 MLS/HR; Start 02/23/17 at 18:30 Norepinephrine/ Dextrose (Levophed/D5W) 500 ml @ 0 mls/hr TITRATE IV Last administered on 02/24/17 08:55; Admin Dose 1.87 MLS/HR; Start 02/24/17 at 07:00 Latanoprost (Xalatan) 1 drop HS BOTH EYES Last administered on 03/01/17 21:09 ; Admin Dose 1 DROP; Start 02/25/17 at 21:00 Brimonidine Tartrate (Alphagan P 0.15%) 1 drop BID BOTH EYES Last administered on 03/02/17 09:30; Admin Dose 1 DROP; Start 02/25/17 at 21:00 Dorzolamide/ Timolol (Cosopt) 1 drop BID BOTH EYES Last administered on 09:30; Admin Dose 1 DROP; Start 02/25/17 at 21:00 Famotidine (Pepcid Iv) 20 mg DAILY IV Last administered on 03/02/17 09:29; Admin Dose 20 MG; Start 02/28/17 at 09:00 Methylprednisolone Sodium Succinate (Solu-Medrol) 40 mg DAILY IV Last administered on 03/02/17 09:29; Admin Dose 40 MG; Start 03/02/17 at 09:00 Assessment/Plan Chief Complaint/Hosp Course 1. Cardiopulmonary arrest 2. Shock probably septic shock, pneumonia with GNR bacteremia: 3. transient ST elevation on EKG patient is well with no significant flow- limiting obstruction on the coronary angiogram 4. Renal failure on dialysis 5. History of hypertension now hypotensive in shock 6. Diabetes 7. History of dyslipidemia 8. Hypoxemic respiratory failure currently intubated on the vent 9. hypoxemic resp failure: vent dependent now unable to wean off so far. 10. AI: mod/ severe: etiology unclear. no evidence of aortic dissection on CT chest. r/o endocarditis/ bacteremia. Recommendations:. cont ICU care for now. . hemodialysis per renal consult. cont Diabetic management. will defer to internal medicine. Antibiotic management as per internal medicine. Continue the vent support for now and try weaning if stable. (defer to pulm team. ). . cont ICU care and vent support for now but family is considering palliative care now. More than 36 minutes of critical care time was reminded to increase patient excluding any procedures Thank you for his referral. I will continue to follow along with you. MALCOLM SANCHEZ MD [facility] Problems: MALCOLM SANCHEZ MD Mar 02, 2017 14:28
[2017-03-02] MEDS: CEFEPIME 1GM/50 ML (PMX) 50 ML IVPB SCH (17:27)
--- NOTE | 2017-03-02 19:37 | PN ---
Date/Time of Note Date/Time of Note DATE: 03/02/17 TIME: 19:36 Assessment/Plan VTE Prophylaxis VTE Prophylaxis Intervention: LMWH Lines/Catheters IV Catheter Type (from Nrs): Peripheral IV Central line still needed: Yes Urinary Cath still in place: Yes (Patient anuric) Reason Cath still needed: urinary retention Assessment/Plan Chief Complaint/Hosp Course 76 yo female with ESRD on HD, ILD, s/p cardiac arrest and with septic shock. Not improving despite prolonged ICU stay. Care likely futile at this point. PULM: Acute hypoxemic respiratory failure, interstitial lung disease: - continue SBT and attempts at extubation, though looking like may not be possible RENAL: ESRD - Continue HD per renal CV: - Continue levophed for BP support - s/p cardiopulmonary arrest wtih ROSC - TTE with good LV function ID: Pneumonia: - Continue broad spectrum abx for VAP ENDO: DMII - Continue basal/bolus insulin DNR, palliative Problems: Subjective 24 Hr Interval Summary Free Text/Dictation No change to clinical status Unable to be weaned from vent or pressors Hospice referral Exam/Review of Systems Vital Signs Vitals Vital Signs Date Time Temp Pulse Resp B/P Pulse Ox O2 Delivery O2 Flow Rate FiO2 03/02/17 18:00 81 29 135/55 96 Mechanical Ventilator 03/02/17 17:00 30 03/02/17 16:00 98.6 Intake and Output 03/01/17 03/01/17 03/02/17 14:59 22:59 06:59 Intake Total 624.52 ml 732.77 ml 898 ml Output Total 0 ml 0 ml 0 ml Balance 624.52 ml 732.77 ml 898 ml Results Result Diagram: 03/02/17 0449 03/02/17 0449 Results 24 hrs Laboratory Tests Test 03/01/17 23:40 03/02/17 04:49 03/02/17 05:46 03/02/17 12:07 Bedside Glucose 153 187 231 H White Blood Count 15.1 H Red Blood Count 2.83 L Hemoglobin 9.3 L Hematocrit 28.4 L Mean Corpuscular Volume 100.4 Mean Corpuscular Hemoglobin 32.9 Mean Corpuscular Hemoglobin Concent 32.7 Red Cell Distribution Width 13.9 Platelet Count 143 Mean Platelet Volume 10.7 H Neutrophils % 78.0 H Lymphocytes % 6.4 L Monocytes % 7.6 Eosinophils % 6.6 Basophils % 0.1 Nucleated Red Blood Cells % 0.0 Neutrophils # 11.8 H Lymphocytes # 1.0 Monocytes # 1.1 H Eosinophils # 1.0 H Basophils # 0.0 Nucleated Red Blood Cells # 0.0 Sodium Level 139 Potassium Level 4.0 Chloride Level 94 L Carbon Dioxide Level 27 Anion Gap 22 H Blood Urea Nitrogen 80 H Creatinine 4.75 #H Glucose Level 148 # Calcium Level 8.7 Phosphorus Level 3.7 Magnesium Level 2.2 Test 03/02/17 18:31 Bedside Glucose 273 H Medications Medications Current Medications Cefepime HCl (Maxipime 1gm/50 ml (Pmx)) 50 ml @ 100 mls/hr Q24H IVPB Last administered on 03/02/17 17:27; Admin Dose 100 MLS/HR; Start 02/23/17 at 16:36 Ondansetron HCl (Zofran Inj) 4 mg Q6H PRN IV NAUSEA AND/OR VOMITING; Start 02/23 at 15:30 Diagnostic Test (Pha) (Accu-Chek) 1 ea 02 XX Last administered on 02/27/17 00: 56; Admin Dose 1 EA; Start 02/24/17 at 02:00 Insulin Aspart (Novolog Insulin Pen) NOVOLOG *MODERATE* ALGORITHM Q6 SC Last administered on 03/02/17 18:34; Admin Dose 8 UNIT; Start 02/23/17 at 18:00 Miscellaneous Information 1 ea NOTE XX ; Start 02/23/17 at 16:30 Glucose (Glutose) 15 gm Q15M PRN PO DECREASED GLUCOSE; Start 02/23/17 at 16:30 Glucose (Glutose) 22.5 gm Q15M PRN PO DECREASED GLUCOSE; Start 02/23/17 at 16:30 Dextrose (D50w Syringe) 25 ml Q15M PRN IV DECREASED GLUCOSE; Start 02/23/17 at 16:30 Dextrose (D50w Syringe) 50 ml Q15M PRN IV DECREASED GLUCOSE; Start 02/23/17 at 16:30 Glucagon (Glucagen) 1 mg Q15M PRN IM DECREASED GLUCOSE; Start 02/23/17 at 16:30 Glucose 15 gm 15 gm Q15M PRN BUCCAL DECREASED GLUCOSE; Start 02/23/17 at 16:30 Propofol 100 ml @ 2.07 mls/hr Q12H IV Last administered on 03/02/17 13:14; Admin Dose 12.42 MLS/HR; Start 02/23/17 at 18:30 Norepinephrine/ Dextrose (Levophed/D5W) 500 ml @ 0 mls/hr TITRATE IV Last administered on 02/24/17 08:55; Admin Dose 1.87 MLS/HR; Start 02/24/17 at 07:00 Latanoprost (Xalatan) 1 drop HS BOTH EYES Last administered on 03/01/17 21:09 ; Admin Dose 1 DROP; Start 02/25/17 at 21:00 Brimonidine Tartrate (Alphagan P 0.15%) 1 drop BID BOTH EYES Last administered on 03/02/17 09:30; Admin Dose 1 DROP; Start 02/25/17 at 21:00 Dorzolamide/ Timolol (Cosopt) 1 drop BID BOTH EYES Last administered on 09:30; Admin Dose 1 DROP; Start 02/25/17 at 21:00 Famotidine (Pepcid Iv) 20 mg DAILY IV Last administered on 03/02/17 09:29; Admin Dose 20 MG; Start 02/28/17 at 09:00 Methylprednisolone Sodium Succinate (Solu-Medrol) 40 mg DAILY IV Last administered on 03/02/17 09:29; Admin Dose 40 MG; Start 03/02/17 at 09:00 SALEEM FUENTES MD Mar 02, 2017 19:37
[2017-03-02] MEDS: LATANOPROST 0.005% 2.5 ML OPH BOTH EYES SCH (20:25)
[2017-03-03] VITALS (22 sets, daily range): BP systolic 85–126; BP diastolic 35–53; PULSE 39–82; RESP 22–33
[2017-03-03] MEDS: ACCU-CHEK XX SCH (02:00)
[2017-03-03] MEDS: ALBUTEROL 18 GM INHALER INH SCH ×2 (03:19→07:23)
[2017-03-03] MEDS: IPRATROPIUM (HFA) 12.9 GM INHALER INH SCH ×2 (03:19→07:22)
[2017-03-03] MEDS: PROPOFOL 100 ML IV SCH (04:03)
[2017-03-03] MEDS: INSULIN ASPART [NOVOLOG] 3 ML PEN SC SCH (06:20)
[2017-03-03] MEDS: FAMOTIDINE 20 MG INJ IV SCH (09:23)
[2017-03-03] MEDS: BRIMONIDINE 0.15% 5 ML OPH BOTH EYES SCH (09:23)
[2017-03-03] MEDS: DORZOLAMIDE/TIMOLOL 10 ML OPH BOTH EYES SCH (09:23)
[2017-03-03] MEDS: METHYLPREDNISOLONE 40 MG INJ IV SCH (09:23)
--- NOTE | 2017-03-03 11:18 | CONS ---
Date/Time of Note Date/Time of Note DATE: 03/03/17 TIME: 11:15 Assessment/Plan Assessment/Plan Chief Complaint/Hosp Course 1. ESRD 2. DM TYPE ii UNCONTROLLED 3. CAD 4. S/P CARDIOPULMONARY ARREST 5. Anemia 6. Overweight Problems: Additional Assessment/Plan 1. Pt is on Hospice with no HD 2. called HD center Consultation Date/Type/Reason Admit Date/Time Feb 23, 2017 at 14:20 Initial Consult Date 02/23/17 Type of Consultation: nephrology Reason for Consultation Dr Borden Referring Provider: MATEUSZ BOYLE MD 24 HR Interval Summary Subjective hx not possible: pt non-verbal Exam/Review of Systems Vital Signs Vitals Vital Signs Date Time Temp Pulse Resp B/P Pulse Ox O2 Delivery O2 Flow Rate FiO2 03/03/17 11:01 80 29 97 03/03/17 09:43 30 03/03/17 08:00 98.6 98/51 Mechanical Ventilator Intake and Output 03/02/17 03/02/17 03/03/17 14:59 22:59 06:59 Intake Total 1198 ml 543.00 ml 619.42 ml Output Total 4500 ml Balance -3302 ml 543.00 ml 619.42 ml Exam Cardiovascular: regular rate and rhythm Neurological: unresponsive Results Result Diagram: 03/02/17 0449 03/02/17 0449 Results 24 hrs Laboratory Tests Test 03/02/17 12:07 03/02/17 18:31 03/02/17 23:55 03/03/17 06:17 Bedside Glucose 231 H 273 H 230 H 198 Medications Medications Current Medications Cefepime HCl (Maxipime 1gm/50 ml (Pmx)) 50 ml @ 100 mls/hr Q24H IVPB Last administered on 03/02/17 17:27; Admin Dose 100 MLS/HR; Start 02/23/17 at 16:36 Ondansetron HCl (Zofran Inj) 4 mg Q6H PRN IV NAUSEA AND/OR VOMITING; Start 02/23 at 15:30 Diagnostic Test (Pha) (Accu-Chek) 1 ea 02 XX Last administered on 02/27/17 00: 56; Admin Dose 1 EA; Start 02/24/17 at 02:00 Insulin Aspart (Novolog Insulin Pen) NOVOLOG *MODERATE* ALGORITHM Q6 SC Last administered on 03/03/17 06:20; Admin Dose 4 UNIT; Start 02/23/17 at 18:00 Miscellaneous Information 1 ea NOTE XX ; Start 02/23/17 at 16:30 Glucose (Glutose) 15 gm Q15M PRN PO DECREASED GLUCOSE; Start 02/23/17 at 16:30 Glucose (Glutose) 22.5 gm Q15M PRN PO DECREASED GLUCOSE; Start 02/23/17 at 16:30 Dextrose (D50w Syringe) 25 ml Q15M PRN IV DECREASED GLUCOSE; Start 02/23/17 at 16:30 Dextrose (D50w Syringe) 50 ml Q15M PRN IV DECREASED GLUCOSE; Start 02/23/17 at 16:30 Glucagon (Glucagen) 1 mg Q15M PRN IM DECREASED GLUCOSE; Start 02/23/17 at 16:30 Glucose 15 gm 15 gm Q15M PRN BUCCAL DECREASED GLUCOSE; Start 02/23/17 at 16:30 Propofol 100 ml @ 2.07 mls/hr Q12H IV Last administered on 03/03/17 04:03; Admin Dose 12.42 MLS/HR; Start 02/23/17 at 18:30 Norepinephrine/ Dextrose (Levophed/D5W) 500 ml @ 0 mls/hr TITRATE IV Last administered on 02/24/17 08:55; Admin Dose 1.87 MLS/HR; Start 02/24/17 at 07:00 Latanoprost (Xalatan) 1 drop HS BOTH EYES Last administered on 03/02/17 20:25 ; Admin Dose 1 DROP; Start 02/25/17 at 21:00 Brimonidine Tartrate (Alphagan P 0.15%) 1 drop BID BOTH EYES Last administered on 03/03/17 09:23; Admin Dose 1 DROP; Start 02/25/17 at 21:00 Dorzolamide/ Timolol (Cosopt) 1 drop BID BOTH EYES Last administered on 09:23; Admin Dose 1 DROP; Start 02/25/17 at 21:00 Famotidine (Pepcid Iv) 20 mg DAILY IV Last administered on 03/03/17 09:23; Admin Dose 20 MG; Start 02/28/17 at 09:00 Methylprednisolone Sodium Succinate (Solu-Medrol) 40 mg DAILY IV Last administered on 03/03/17 09:23; Admin Dose 40 MG; Start 03/02/17 at 09:00 ANDREA BERG Mar 03, 2017 11:18
[2017-03-03] MEDS ORDERED: morphine (DRIP) 100 MG/100 ML 100 ML IV SCH (11:30)
[2017-03-03] MEDS ORDERED: morphine 4 MG/ML VIAL IV ONE (11:30)
[2017-03-03] MEDS ORDERED: LORAZEPAM 2 MG INJ IV PRN (11:30)
[2017-03-03] MEDS ORDERED: LORAZEPAM 2 MG INJ IV ONE (11:30)
[2017-03-03] MEDS ORDERED: ARTIFICIAL TEARS 15 ML OPH BOTH EYES PRN (11:30)
[2017-03-03] MEDS ORDERED: ATROPINE 1% 5 ML OPH SL PRN (11:30)
[2017-03-03] MEDS ORDERED: ALBUTEROL/IPRATROPIUM (NEB) 3 ML AMP HHN PRN (11:30)
[2017-03-03] MEDS ORDERED: SCOPOLAMINE 1.5 MG PATCH TRANSDERM SCH (11:30)
--- NOTE | 2017-03-03 12:21 | CONS ---
Date/Time of Note Date/Time of Note DATE: 03/03/17 TIME: 12:20 Consult Date/Type/Reason Admit Date/Time Feb 23, 2017 at 14:20 Initial Consult Date 02/23/17 Type of Consultation: Pulmonary Ordering Provider: MATEUSZ BOYLE MD Subjective Patient remains intubated on mechanical ventilation. Objective Vital Signs Date Time Temp Pulse Resp B/P Pulse Ox O2 Delivery O2 Flow Rate FiO2 03/03/17 11:01 80 29 97 03/03/17 09:43 30 03/03/17 08:00 98.6 98/51 Mechanical Ventilator Intake and Output 03/02/17 03/02/17 03/03/17 15:00 23:00 07:00 Intake Total 1196 ml 543.42 ml 607.00 ml Output Total 4500 ml Balance -3304 ml 543.42 ml 607.00 ml Exam PHYSICAL EXAMINATION GENERAL: Elderly lady orally intubated on mechanical ventilation VITAL SIGNS: see below. HEENT: Pupils equal, round, and reactive to light. CARDIAC: S1, S2, systolic ejection murmur. CHEST: Diminished air entry bilaterally with rhonchi ABDOMEN: Mildly distended. Bowel sounds present no guarding or rebound EXTREMITIES: No cyanosis, clubbing edema +1 NEUROLOGIC: Generalized weakness Results/Medications Result Diagram: 03/02/17 0449 03/02/17 0449 Results 24 hrs Laboratory Tests Test 03/02/17 18:31 03/02/17 23:55 03/03/17 06:17 Bedside Glucose 273 H 230 H 198 Medications Current Medications Morphine Sulfate/ Sodium Chloride (morphine) 100 ml @ 1 mls/hr TITRATE IV Last administered on 03/03/17t 12:06; Admin Dose 1 MLS/HR; Start 03/03/17 at 11:30 Lorazepam (Ativan) 1 mg Q4H PRN IV ANXIETY/SEIZURES; Start 03/03/17 at 11:30 Scopolamine (Transderm-Scop) 1 patch Q72H TRANSDERM ; Start 03/03/17 at 11:30 Atropine Sulfate (Atropine 1% Oph) 2 drop Q4H PRN SL TERMINAL CONGESTION; Start 03/03/17 at 11:30 Assessment/Plan Chief Complaint/Hosp Course IMP: 1. Hypoxemic Respiratory Failure currently failed to wean off mechanical ventilation 2. s/p PEA arrest--etiology not entirely clear 3. ESRD on HD 4. Advanced ILD--consistent with chronic HP 5. Anemia likely of chronic disease. RECS: 1. Decrease sedation as tolerated 2. Continues mechanical ventilation 3. Abx 4. HD likely on hold now. 5. Minimize narcotics Discussed with patient's family and nursing staff. Will likely proceed to terminal extubation and admission to hospice service. 35 min cc time Problems: GURU RANDOLPH MD, [facility] Mar 03, 2017 12:21
--- NOTE | 2017-03-03 14:15 | EN ---
Date/Time of Note Date/Time of Note DATE: 03/03/17 TIME: 14:12 Event Note Medicine Medicine Event Note To pronounce the patient following terminal extubation. Patient at 1325, March 03, 2017. Family at bedside. On examination No breath sounds No heart sounds Pupils fixed and dilated No response to stimuli No spontaneous respiratory effort Patient at time noted. fuel system maintenance worker contacted. arrangements per family. GURU RANDOLPH MD, [facility] Mar 03, 2017 14:14
--- NOTE | 2017-03-03 18:48 | DS ---
Date/Time of Note Date/Time of Note DATE: 03/03/17 TIME: 18:46 Discharge Summary Admission/Discharge Info Admit Date/Time Feb 23, 2017 at 14:20 Discharge Date/Time Mar 03, 2017 at 16:53 Hx of Present Illness Patient is a 76-year-old female with a past medical history significant for end-stage renal disease on hemodialysis for over 10 years, hypertension, diabetes, dyslipidemia was who was admitted for cardiopulmonary arrest. Patient also had ST elevation and a code STEMI was called, cardiology took patient into the cardiac cath and did not find any acute ischemic disease. Patient also received echocardiogram and chest x-ray which did not show any tamponade or any tension pneumothorax. Patient received dialysis earlier today and felt weak and collapsed resulting in PEA arrest however after fluid resuscitation patient neurologically improved and hypothermic protocol was not initiated. It should also be of note that during the cardiac cath bereavement coordinator noted left ventricular end-diastolic pressure was very low with severe aortic regurg. The rest of the HPI is difficult to obtain as patient is intubated and sedated and there are no family members at bedside PMH: End-stage renal disease, hypertension, diabetes, dyslipidemia, PSH: Unknown, however patient is noted to have a vertical anterior abdominal scar Social: Unknown at this time Meds: Reportedly Lipitor, lisinopril, isosorbide dinitrate, insulin, Hospital Course IMP: 1. Hypoxemic Respiratory Failure currently failed to wean off mechanical ventilation 2. s/p PEA arrest--etiology not entirely clear 3. ESRD on HD 4. Advanced ILD--consistent with chronic HP 5. Anemia likely of chronic disease. RECS: 1. Decrease sedation as tolerated 2. Continues mechanical ventilation 3. Abx 4. HD likely on hold now. 5. Minimize narcotics Discussed with patient's family and nursing staff. Will likely proceed to terminal extubation and admission to hospice service. 35 min cc time Patient was intubated and given mechanical ventilation. She received abx and numerous HD sessions. Unable to be weaned from pressors. Further care was deemed futile as she was unlikely to be able to come off of the venitlator. Discussions with family were held and it was decided to pursue palliative exutbation. Patient comfortably. Primary Care Provider Care Physician No Primary Pending Labs Laboratory Tests Test 03/02/17 23:55 8/12/17 06:17 Bedside Glucose 230mg/dL (70-220) 198mg/dL (70-220) SALEEM FUENTES MD Mar 03, 2017 18:47
--- NOTE | 2017-03-04 03:34 | HP ---
DATE OF ADMISSION: 02/23/2017 CHIEF COMPLAINT: Patient being admitted under [facility] level of care. Currently has a diagnosis of anoxic encephalopathy due to cardiac arrest, comorbid end-stage renal disease, acute respiratory failure, hypertension, diabetes. REASON FOR ADMISSION: Patient is a 75-year-old female, with history of hypertension, diabetes, dyslipidemia, who was admitted on 02/23/2017, at [facility] after cardiac arrest. Patient was noted to have ST-elevation on EKG and code STEMI was called. The patient was seen by Cardiology and was taken to laboratory phlebotomist. However, there was no evidence of acute ischemic disease. Patient was also intubated and could not be weaned off. Cardiac cath echo revealed severe aortic regurgitation. The patient was seen by Dr. Machuca from pulmonary standpoint and recommended hospice care, as she was not a candidate for weaning. Patient was also seen by Dr. Evans from cardiac standpoint and Dr. Yunior Borden from a renal standpoint. The patient's family gave consent for hospice. The patient is being admitted for comfort care. REVIEW OF SYSTEMS: Could not be obtained, although on the day of admission, there were no fevers or chills. No apparent bleeding from any site. No reported abdominal distension. Patient with leg edema. No acute skin rash. Review of systems was rather limited. PAST MEDICAL HISTORY: As stated above. SOCIAL HISTORY: No history of smoking. ALLERGIES: NONE. FAMILY HISTORY: Noncontributory. PHYSICAL EXAMINATION: GENERAL APPEARANCE: Revealed the patient to be breathing comfortably, in no acute distress. VITAL SIGNS: Blood pressure 115/43, pulse 81, respiration 33, O2 sat 96 percent on mechanical vent. HEENT: No eye discharge or redness. normal. NECK: No masses. CHEST: Diminished air entry at the bases. CARDIAC: S1, S2 normal. No murmur. ABDOMEN: Soft, nondistended, nontender. EXTREMITIES: Trace lower extremity edema present. No clubbing or cyanosis. NEUROLOGIC: Patient is lethargic. No neurologic examination possible. RECENT LABS: WBC 15.1, hemoglobin 9.3, platelet 143. Sodium 139, potassium 4, BUN 50, creatinine 4.7, glucose 148, phosphorus was 9.7. Albumin 3.7, bilirubin 2.2. IMPRESSION: 1. Cardiopulmonary arrest with anoxic encephalopathy. 2. Evidence of aortic heart disease with severe aortic regurgitation on recent catheterization. 3. Polycythemia. 4. Chronic kidney disease, stage 5. Patient will be terminally extubated. I met with several family members, and also [facility]. Patient will be treated with morphine drip, which will be titrated for comfort care. The patient will also be given atropine drops for secretions, Ativan for anxiety and supplement oxygen after after extubation. Patient will also be given morphine prior to extubation to avoid air hunger. We will continue to optimize comfort care. The patient is appropriate for general inpatient care level of care. Dictated By: Dante Alcantara MD /[email or web address] /Document#: [id number]
--- NOTE | 2017-03-05 13:32 | DES ---
DATE OF ADMISSION: 02/23/2017 DATE OF DISCHARGE: 03/03/2017 DATE OF ADMISSION: 03/04/2017 under hospice care. DATE OF EXPIRATION: 03/04/2017. 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 OTHER COMORBID CONDITIONS: 1. Endstage renal disease. 2. Severe aortic regurgitation. 3. Acute respiratory failure. 4. Diabetes. REASON FOR ADMISSION: Patient was a 75-year-old female with history of hypertension, diabetes, dyslipidemia, who was admitted at [facility] on 02/23/2017 after she sustained a cardiac arrest. The patient was successfully resuscitated with spontaneous return of circulation. However, the patient was intubated. The patient had a positive troponin and was taken to microbiology lab technician. However, patient's coronary arteries did not have any significant disease. The patient did have severe aortic regurgitation. Patient was seen by Dr. Machuca from a pulmonary standpoint, DrRupal from renal standpoint, and DrRupal from cardiac standpoint. The patient remained nonverbal and was referred to palliative care and was subsequently referred to hospice. The patient was admitted under hospice care on 03/03/2017. The patient's family requested terminal extubation. The patient was given morphine and Ativan prior to terminal extubation and was started on a morphine drip. The patient after a few hours . I met with the patient's family with [employer] prior to terminal extubation and plan of care discussed with them. The patient after admission under hospice became slowly bradycardic and subsequently . The patient was made a DNR prior to terminal extubation. At 13:25, patient went into asystole and was pronounced . Dictated By: Dante Alcantara MD /luke/jose a /Document#: [id number]
== END 2017-03-04 13:25 | disposition expired | DRG 870 ==
LOC: E/R 11:41 → CCL 12:07 → SDS 12:07 → CCL 12:42 → ICU 14:20 → UNDODISIN 03-03 16:53
PROVIDERS: ADMIT Internal Medicine; ATTEND Internal Medicine
PROC: 4A023N7 Measurement of Cardiac Sampling and Pressure, Left Heart, Percutaneous Approach (ICD-10-PCS; 2017-02-23)
PROC: B211YZZ Fluoroscopy of Multiple Coronary Arteries using Other Contrast (ICD-10-PCS; 2017-02-23)
PROC: 5A1955Z Respiratory Ventilation, Greater than 96 Consecutive Hours (ICD-10-PCS; principal; 2017-02-23 12:00)
PROC: 5A1D60Z (ICD-10-PCS; 2017-02-24)
DX: A41.9 Sepsis, unspecified organism (principal); I21.19 ST elevation (STEMI) myocardial infarction involving other coronary artery of inferior wall; J96.01 Acute respiratory failure with hypoxia; R65.21 Severe sepsis with septic shock; J18.9 Pneumonia, unspecified organism; G93.1 Anoxic brain damage, not elsewhere classified; E87.2 Acidosis; I12.0 Hypertensive chronic kidney disease with stage 5 chronic kidney disease or end stage renal disease; N18.6 End stage renal disease; E87.1 Hypo-osmolality and hyponatremia; I25.119 Atherosclerotic heart disease of native coronary artery with unspecified angina pectoris; E11.22 Type 2 diabetes mellitus with diabetic chronic kidney disease; Z99.2 Dependence on renal dialysis; Z79.4 Long term (current) use of insulin; E78.5 Hyperlipidemia, unspecified; D63.8 Anemia in other chronic diseases classified elsewhere; R19.7 Diarrhea, unspecified; E11.65 Type 2 diabetes mellitus with hyperglycemia; D75.1 Secondary polycythemia; I35.1 Nonrheumatic aortic (valve) insufficiency
CPT/HCPCS: 36556; 36600; 71010; 71275; 76775; 80048; 80053; 80061; 82550; 82553; 82803; 82962; 83605; 83735; 84100; 84439; 84443; 84484; 85025; 85610; 85730; 87040; 87081; 90935; 93005; 93306; 93458; 94002; 94003; 94640; 94770; 96374; C1751; C1769; C1887; C1894; C9113; J0692; J1644; J1815; J2060; J2250; J2270; J2920; J2930; J3010; J7030; J7040; Q9967